=== PATIENT | female | born 1945 | race Caucasian/White ===

== ENCOUNTER 2018-01-14 14:52 | Outpatient (CLI) | payer MEDICARE, BC, SELFPAY ==
[2018-01-14 16:05] LABS: D-Dimer 1080 ng/mlFEU (<500)
[2018-01-14 17:28] LABS: ALT 19 U/L (12-78); AST 21 U/L (15-37); Albumin 3.8 g/dL (3.4-5.0); Alkaline Phosphatase 101 U/L (46-116); Anion Gap 9.1 mmol/L (3-11); BUN 16 mg/dL (7-18); Bilirubin, Total 0.7 mg/dL (0.2-1.0); CO2 26.9 mmol/L (21.0-32.0); CREATININE 0.99 mg/dL (0.55-1.02); Calcium 8.5 mg/dL (8.5-10.1); Chloride 109 mmol/L (98-107); Estimated GFR 55.14 (mL/min/1.73m2); Glucose 92 mg/dL (70-100); Potassium 3.8 mmol/L (3.5-5.1); Sodium 145 mmol/L (136-145); Total Protein 7.2 g/dL (6.4-8.2)
[2018-01-14 17:32] LABS: Vitamin B12 > 2000 pg/mL (193-986)
[2018-01-17 16:32] LABS: Creatine Kinase 99 U/L (26 - 192)
== END 2018-01-14 15:12 ==
PROVIDERS: PCP Nurse Practitioner Family; Visit Provider Nurse Practitioner Family
DX: I25.10 Atherosclerotic heart disease of native coronary artery without angina pectoris (principal); R07.9 Chest pain, unspecified; M81.0 Age-related osteoporosis without current pathological fracture; I50.9 Heart failure, unspecified; R53.83 Other fatigue; R05 Cough; D51.9 Vitamin B12 deficiency anemia, unspecified; E03.9 Hypothyroidism, unspecified
CPT/HCPCS: 36415; 80053; 82550; 82552; 82607; 85379

== ENCOUNTER 2018-01-14 17:08 | Emergency (ER) | payer MEDICARE, BC, SELFPAY ==
[2018-01-14] VITALS (15 sets, daily range): BP systolic 118–138; BP diastolic 53–80; PULSE 68–88; RESP 12–26; TEMP 36.6–36.8; O2SAT 92–99
--- NOTE | 2018-01-14 17:26 | DI.CT_ITS ---
SYMPTOM/DIAGNOSIS: SOB, ELEVATED D DIMER PE CHEST CT: CT angiography was performed with multi slice acquisition and multi planar and 3D reconstruction. CT scan of the chest was performed according to the pulmonary embolus protocol. Comparison is made with 06/06/14. There is atherosclerosis of the thoracic aorta but no aneurysmal dilatation or dissection. Heart size is mildly enlarged. There is no significant pericardial effusion. No findings to suggest right ventricular dysfunction are present. No significant thoracic adenopathy is seen. No pleural effusion or pneumothorax is present. There is no evidence of a pulmonary embolus. There are infiltrates seen in the right middle lobe and left lingula. The lungs are otherwise clear. No noncalcified pulmonary nodules are present. The tracheobronchial tree is unremarkable. There are vascular collateral/varices in the left upper quadrant of the abdomen. Degenerative changes are seen in the spine. IMPRESSION: 1. No evidence of a pulmonary embolus or thoracic aortic dissection or aneurysm. 2. Right middle lobe and lingular infiltrate. This may represent atelectasis, scarring or pneumonia. Please correlate clinically.
[2018-01-14 18:08] LABS: Abs Immature Grans 0.01 k/cumm (0.0-0.09); Absolute Basophil Count 0.03 k/cumm (0.0-0.2); Absolute Eosinophil Count 0.31 k/cumm (0.0-0.7); Absolute Lymphocyte Count 2.58 k/cumm (1.2-3.4); Absolute Monocyte Count 0.66 k/cumm (0.11-0.7); Absolute Neutrophil Count 3.35 k/cumm (1.2-6.7); Basophils % 0.4; Eosinophils % 4.5; HCT 36.9 % (36.0-46.0); HGB 11.8 g/dL (12.0-15.5); Immature Grans % 0.1; Lymphocytes % 37.2; Mean Corpuscular Hemoglobin 29.1 pg (27.0-33.0); Mean Corpuscular Volume 91.1 fL (80-95); Mean Platelet Volume 9.2 fL (8.0-11.0); Monocytes % 9.5; Neutrophils % 48.3; Platelet Count 260 x1000/uL (130-400); RBC 4.05 m/cumm (4.00-5.20); RBC Distribution Width 14.6 % (11.7-14.6); White Blood Cell Count 6.94 k/cumm (4.4-10.8)
[2018-01-14 18:17] LABS: PTT Activated 25.6 sec (21.0-31.4); Prothrombin Time 10.1 sec (9.3-10.8)
[2018-01-14] MEDS: Omnipaque 350 MG/ML 100 ML BTL IJ (18:18)
[2018-01-14 18:19] LABS: Troponin I < 0.02 ng/mL (0.00-0.06)
--- NOTE | 2018-01-14 18:33 | DI.VRAD_ITS ---
EXAM: CT Angiography Chest With Intravenous Contrast CLINICAL HISTORY: 72 years old, female; Signs and symptoms and abnormal findings; Abnormal diagnostic tests; Elevated d-dimer; Shortness of breath TECHNIQUE: Axial computed tomographic angiography images of the chest with intravenous contrast using pulmonary embolism protocol. MIP reconstructed images were created and reviewed. Coronal and sagittal reformatted images were created and reviewed. COMPARISON: CT - CHEST FOR PULMONARY EMBOLUS 09/03/2015 10:12 AM FINDINGS: Pulmonary arteries: Unremarkable. No pulmonary embolism. Aorta: Minimal atherosclerosis of the aortic arch and origin of the left subclavian artery. No thoracic aortic aneurysm. Other veins: Prominent vessels within the left upper quadrant, likely venous collaterals. Lungs: Mild dependent changes within the lung bases. Atelectasis and/or scar in the medial right middle lobe and lingula of left upper lobe. No mass. Pleural space: Unremarkable. No significant effusion. No pneumothorax. Heart: Unremarkable. No cardiomegaly. No significant pericardial effusion. No evidence of RV dysfunction. Bones/joints: No acute fracture. No dislocation. Soft tissues: Unremarkable. Lymph nodes: Unremarkable. No enlarged lymph nodes. IMPRESSION: 1. No pulmonary arterial embolism. 2. Right middle lobe and lingula atelectasis and/or scar. Dictated and Authenticated by: Mykel Saucedo MD. Ordering:NEELAM HOLDEN MD
--- NOTE | 2018-01-14 19:32 | ED.GENADUL_ITS ---
Discharge Plan Disposition Patient Disposition: HOME Condition: Good Discharge Details Chief Complaint: SOB Clinical Impression: Exertional shortness of breath, Varicose veins of both lower extremities Primary Care Provider: Prerna Buchanan ED Provider: Sha Dailey Home Meds and New Rx's Prescriptions: Continue aspirin [Aspirin Low-Strength] 81 MG tablet,chewable 81 mg PO DAILY RF: 0 levothyroxine 75 MCG tablet 75 mcg PO DAILY RF: 0 Atorvastatin Calcium 20 MG tablet 20 mg PO HS Qty: 90 RF: 3 verapamil 180 MG capsule,ext rel. pellets 24 hr 180 mg PO HS Qty: 90 RF: 3 isosorbide mononitrate 60 MG tablet extended release 24 hr 60 mg PO DAILY 90 Days Qty: 90 RF: 3 tramadol 50 MG tablet 50 mg PO HS RF: 0 furosemide 20 MG tablet 20 mg PO DAILY Qty: 30 RF: 11 calcium carbonate [Calcium 600] 600 mg calcium (1,500 mg) Tablet 600 mg PO DAILY RF: 0 cyanocobalamin (vitamin B-12) [Vitamin B-12] 1,000 mcg/mL Solution 1,000 mcg IM QMONTH RF: 0 cholecalciferol (vitamin D3) [Vitamin D3] 400 unit Capsule 400 unit PO DAILY RF: 0 Discharge Instructions Instructions: Varicose Veins (ED), Dyspnea (ED) Additional Instructions: Return immediately to the emergency department as needed for any new or worsening symptoms. Otherwise continue to take your medications as prescribed and follow-up with your primary care provider as needed for reassessment. Referrals: Prerna Buchanan [Primary Care Provider] - 1 week Discharge Data Discharge Date/Time-TO BE ENTERED AT DEPARTURE: 01/14/18 20:27 Medical Decision Making MDM Narrative Medical decision making narrative: Patient presenting to the emergency department at recommendation of her primary care provider for elevated d-dimer. Patient states that for over a month she has had some shortness of breath with exertion, intermittent leg swelling, and some pain on the anterior surface of her right lower leg. Patient does state history of some heart problems but has noticed some worsening of her symptoms over the past 4-6 week. Patient denies any chest pain at this time and is not actively short of breath but does state some right lower extremity discomfort. Right lower extremity does show varicose veins that are also present on the left lower leg but otherwise no popliteal or femoral tenderness, no respiratory distress, clear lung sounds, normal cardiac exam. Given elevated d-dimer CTA PE protocol was ordered along with CBC and coagulation studies. CMP was already performed by primary care is otherwise unremarkable nondiagnostic. Troponin was also added although I doubt ACS given duration of symptoms. EKG was reviewed with Dr. Washington. Review of labs is nondiagnostic and shows a mild anemia which is been present in the past. Negative troponin and otherwise unremarkable. CT chest shows no PE and does show some right middle lobe atelectasis or scar. Bedside ultrasound was utilized to perform vascular rapid study of patient's right lower leg which is the one with symptomatic pain and full compressibility of the deep veins from the popliteal space all the way to the femoral branch are noted with no obvious signs of thrombosis. On the right anterior aspect of her leg these veins were also compressible without signs of thrombosis. I feel the patient's lower extremity discomfort is coming from these varicose veins which show no signs of thrombosis on bedside ultrasound. No DVT is noted on scan and there is no significant abnormalities comparing right to left leg, no significant edematous changes are noted, no color changes are noted so I doubt DVT. With negative PE study I feel that her chest pain can be due to her chronic heart condition due to patient stating that it mainly happens with exertion resolved resolves with rest. Plan to have patient follow up with her primary care provider in 1 week for reassessment or to return immediately for new or worsening symptoms. After discussion of diagnosis and plan of care patient she states no further needs, questions, or concerns at this time Medical Records Medical records reviewed: Yes I reviewed the patient's medical records. Lab Data Lab results reviewed: Yes I reviewed the patient's lab results. Lab Results 01/14/18 01/14/18 01/14/18 Range/Units 17:53 17:53 17:53 WBC 6.94 (4.4-10.8) k/cumm RBC 4.05 (4.00-5.20) m/cumm Hgb 11.8 L (12.0-15.5) g/dL Hct 36.9 (36.0-46.0) % MCV 91.1 (80-95) fL MCH 29.1 (27.0-33.0) pg MCHC 32.0 (32.0-36.0) g/dL RDW 14.6 (11.7-14.6) % Plt Count 260 (130-400) x1000/uL MPV 9.2 (8.0-11.0) fL Immature Gran % 0.1 Neutrophils % 48.3 Lymphocytes % 37.2 Monocytes % 9.5 Eosinophils % 4.5 Basophils % 0.4 Absolute Neutrophils 3.35 (1.2-6.7) k/cumm Absolute Lymphocytes 2.58 (1.2-3.4) k/cumm Absolute Monocytes 0.66 (0.11-0.7) k/cumm Absolute Eosinophils 0.31 (0.0-0.7) k/cumm Absolute Basophils 0.03 (0.0-0.2) k/cumm PT 10.1 (9.3-10.8) sec INR 1.0 (1.0-3.5) APTT 25.6 (21.0-31.4) sec Magnesium 2.0 (1.8-2.4) mg/dL Troponin I < 0.02 (0.00-0.06) ng/mL ECG Data Prior ECG tracings: not available for review Interpretation: EKG shows sinus rhythm with a rate of 74, normal axis, regular NH intervals, no diagnostic ST changes noted. HPI - General Adult General Mode of arrival: ambulatory . Date/Time Provider Initiated Documentation: 01/14/18 17:19 . Limitations to Documentation: no limitations . Information obtained by: patient and RN notes reviewed . HPI Narrative: Patient chief complaint of elevated blood test. Patient states she was sent to the emergency department by her primary care office due to elevated d-dimer. Patient states over the last month or more she has had intermittent dyspnea on exertion, chest pain, and some anterior right redmond pain. Patient states that she is pain-free and asymptomatic at this time. Patient states that movement and activity seem to worsen her shortness of breath but rest typically resolves her symptoms. Patient has not taken any medication or treatments prior to coming to the emergency department. Related Data Home Medications Medication Instructions Recorded Confirmed aspirin [Aspirin Low-Strength] 81 mg PO DAILY tab-cap 08/11/12 01/14/18 levothyroxine 75 mcg PO DAILY tab-cap 01/31/14 01/14/18 isosorbide mononitrate 60 mg PO DAILY 90 Days #90 tab-cap 01/06/17 01/14/18 verapamil 180 mg PO HS #90 tab-cap 01/06/17 01/14/18 tramadol 50 mg PO HS tab-cap 07/29/17 01/14/18 calcium carbonate [Calcium 600] 600 mg PO DAILY 01/14/18 01/14/18 cholecalciferol (vitamin D3) 400 unit PO DAILY 01/14/18 01/14/18 [Vitamin D3] cyanocobalamin (vitamin B-12) 1,000 mcg IM QMONTH 01/14/18 01/14/18 [Vitamin B-12] Previous Rx's Medication Instructions Recorded furosemide 20 mg PO DAILY #30 tab-cap 09/29/17 Allergies Allergy/AdvReac Type Severity Reaction Status Date / Time alendronate sodium AdvReac Mild Nausea Unverified 01/14/18 17:33 [From Fosamax] General Stated Complaint: SOB OZZY: 2 Review of Systems Constitutional Denies body ache(s), Denies chills and Denies fever(s) Cardiovascular Reports as per HPI, Reports chest pain, Reports chest pain with activity, Denies diaphoresis, Denies syncope, Denies pedal edema, Denies edema, Denies irregular heart rhythm, Denies claudication, Denies leg edema, Reports dyspnea and Reports dyspnea on exertion Respiratory Reports as per HPI, Denies cough, Denies hemoptysis, Denies pain on inspiration , Reports dyspnea and Reports dyspnea on exertion Gastrointestinal Denies abdominal pain, Denies nausea and Denies vomiting Integumentary/Breasts Denies rash Neurologic Denies confusion, Denies syncope and Denies sensory deficit Psychiatric Denies confusion [facility] Medical History Benign positional vertigo Hypothyroid Osteopenia Vestibular migraine Social History Smoking/Tobacco Use Status: Never Surgical History Ligation of fallopian tube Tonsillectomy and adenoidectomy Exam Const General: cooperative, no acute distress and not ill appearing Orientation: alert, awake and oriented x3 HENMT Mouth: moist mucous membranes Resp Effort & Inspection: normal respiratory effort, able to speak in complete sentences, no cough, respiratory effort not decreased, not labored, no pursed lip breathing and no respiratory distress Auscultation: clear to auscultation bilaterally Cardio Rate: regular rate Rhythm: regular rhythm Heart Sounds: S1 normal, S2 normal, normal S1 and S2, no click, no gallops, no murmurs and no rubs Pulses: radial pulses present bilaterally 2+ Skin General skin exam: no rashes or lesions noted Neuro General: alert, awake, oriented x3, moves all extremities and no focal motor deficits Sensory Exam: no sensory deficits noted Extrem Right lower extremity: full ROM, normal capillary refill, no joint enlargement, knee Details: normal to inspection, lower leg Details: tenderness Location: other (Anterior tibia) and no edema and ankle Details: normal to inspection; no edema Left lower extremity: normal to inspection Course Vital Signs Temperature 36.6 C 01/14/18 17:16 Pulse 73 01/14/18 17:16 Respiratory Rate 18 01/14/18 17:16 Blood Pressure 125/68 01/14/18 17:16 Pulse Oximetry 94 L 01/14/18 17:16 Temperature 36.6 C 01/14/18 17:16 Pulse 74 01/14/18 18:17 Respiratory Rate 20 01/14/18 18:20 Blood Pressure 119/53 L 01/14/18 18:17 Pulse Oximetry 92 L 01/14/18 18:20 Lab/Test Results Lab/Test Results: Laboratory Tests 01/14/18 01/14/18 01/14/18 17:53 17:53 17:53 WBC 6.94 RBC 4.05 Hgb 11.8 L Hct 36.9 MCV 91.1 MCH 29.1 MCHC 32.0 RDW 14.6 Plt Count 260 MPV 9.2 Immature Gran % 0.1 Neutrophils % 48.3 Lymphocytes % 37.2 Monocytes % 9.5 Eosinophils % 4.5 Basophils % 0.4 Absolute Neutrophils 3.35 Absolute Lymphocytes 2.58 Absolute Monocytes 0.66 Absolute Eosinophils 0.31 Absolute Basophils 0.03 PT 10.1 INR 1.0 APTT 25.6 Magnesium 2.0 Troponin I < 0.02
== END 2018-01-14 20:27 | disposition home or self-care (01) ==
LOC: ER 20:05
PROVIDERS: Emergency Provider Nurse Practitioner Family; PCP Nurse Practitioner Family
DX: R06.02 Shortness of breath (principal); I83.93 Asymptomatic varicose veins of bilateral lower extremities
CPT/HCPCS: 36415; 71275; 80053; 93005; 99285; 82550; 82552; 82607; 83735; 84484; 85025; 85379; 85610; 85730; 93010; 99284; J3490

== ENCOUNTER 2018-01-20 07:46 | Outpatient (CLI) | payer MEDICARE, BC, SELFPAY ==
[2018-01-20 09:01] LABS: Iron 66 ug/dL (50-175); Total Iron Binding Capacity 383 ug/dL (250-450); Transferrin Sat 17 % (15-50)
[2018-01-20 09:15] LABS: Cholesterol 142 mg/dL (50-200); Ferritin 12 ng/mL (8-388); HDL Cholesterol 68 mg/dL (40-60); LDL CHOLESTEROL 65 mg/dL (<100); Triglyceride 67 mg/dL (30-150)
== END 2018-01-20 08:06 ==
PROVIDERS: PCP Nurse Practitioner Family; Visit Provider Student in an Organized Health Care Education/Training Program
DX: I25.10 Atherosclerotic heart disease of native coronary artery without angina pectoris (principal); I50.9 Heart failure, unspecified
CPT/HCPCS: 36415; 80061; 83721; 82728; 83540; 83550; 84443; 84466

== ENCOUNTER 2018-02-08 02:07 | Outpatient (CLI) | payer MEDICARE, BC, SELFPAY ==
--- NOTE | 2018-02-08 | PFT_ITS ---
PULMONARY FUNCTION TEST REPORT Please see scanned documents for further information Patient identification - Anika Tong DATE OF - 1945 DATE OF SERVICE - February 08, 2018 REQUESTING PROVIDER - Prerna Buchanan NP INTERPRETATION OF STUDY Spirometry shows no evidence of obstructive airways disease. No bronchodilator response. LUNG VOLUMES - Lung volumes show borderline mild restriction. DIFFUSION CAPACITY- Mildly reduced, which is normal when corrected to alveolar volume. AIRWAY RESISTANCE - Normal. IMPRESSION Borderline mild restrictive lung disease associated with mild diffusion defect. Clinical correlation recommended. When this study was compared to previous one from 10/15/2015, the patient has a total of 150 cc decline in FVC and a 100 cc decline in FEV1. Elinor Kelley M.D. BRANT/amina T - 02/09/2018 SEE SCANNED DOCUMENT IN THE EMR FOR DATA AND GRAPHS
[2018-02-08] MEDS: Inhaler, Assist Device 1 EACH MC (08:36)
[2018-02-08] MEDS: Albuterol HFA 18 GM 200 PUFF INH IH (08:37)
== END 2018-02-08 02:27 ==
PROVIDERS: PCP Nurse Practitioner Family; Visit Provider Nurse Practitioner Family
DX: R07.9 Chest pain, unspecified (principal); R06.09 Other forms of dyspnea; J98.4 Other disorders of lung
CPT/HCPCS: 94060; 94150; 94726; 94729

== ENCOUNTER 2018-02-17 00:24 | Outpatient (CLI) | payer MEDICARE, BC, SELFPAY ==
--- NOTE | 2018-02-17 08:30 | MERGEMPI_ITS ---
*[facility]* [address] [place] [address] Myocardial Perfusion Imaging - SPECT Johan protocol Date of study: 02/17/2018 *PATIENT PRESENTATION* Height: 157.5cm (62in) Blood Pressure: Weight: 78.6kg (173lb) BSA: 1.89m^2 Referring physician: Naveen Williamson Ordering physician: Prerna Buchanan Aprn Impressions: Normal study after maximal exercise. Summary: 1. Myocardial perfusion imaging: No myocardial perfusion defects noted. 2. The calculated left ventricular ejection fraction after stress: 68%. LV global systolic function is normal. No left ventricular regional motion abnormality. 3. Stress: The target heart rate was achieved. Indication: R06.09. History: Patient's presenting symptoms: asymptomatic. REASON FOR VISIT: PATIENT PRESENTED TO THE EMERGENCY ROOM 01/14/18 ON RECOMMENDATION BY PCP DUE TO ELEVATED D-DIMER, AND REPORT OF OVER A MONTH OF INTERMITTENT EXERTIONAL DYSPNEA, CHEST PAIN, INTERMITTENT LEG SWELLING, AND RIGHT ANTERIOR LEG PAIN. DENIES CHEST PAIN AT TIME OF ER PRESENTATION, TROPONIN NEGATIVE, AND PULMONARY EMBOLISM RULED OUT BY CT SCAN. TODAY, PATIENT REPORTS 6 MONTHS OF EXERTIONAL DYSPNEA AND 6/10 LEFT STERNAL CHEST PRESSURE/HEAVINESS OCCURING MOSTLY DURING CLIMBING STAIRS. SYMPTOMS LAST FOR ABOUT 5-10 MINUTES AND RESOLVES WITH REST. LAST EPISODE OF CHEST PRESSURE OCCURED TWO DAYS AGO. 09/20/15 STRESS TEST: NEGATIVE REGULAR STRESS TEST. 11/14/15 ECHOCARDIOGRAM: EJECTION FRACTION 60-65%, MILD MITRAL REGURGITATION. 02/09/16 PULMONARY FUNCTION TEST: MILD RESTRICTIVE LUNG DISEASE ASSOCIATED WITH MILD DIFFUSION DEFECT. PAST MEDICAL HISTORY: HYPERTENSION, HEART FAILURE, PEPTIC ULCER DISEASE, HYPOTHYROIDISM, VESTIBULAR MIGRAINES, OSTEOPENIA, CORONARY ARTERY DISEASE, CHRONIC STABLE ANGINA. FAMILY HISTORY: MOTHER - CORONARY ARTERY DISEASE, MYOCARDIAL INFARCTION. SMOKING STATUS: NEVER SMOKER. EXERCISE ROUTINE: NONE. Risk factors: Family history of coronary artery disease. Hypertension. Cholesterol: 142mg/dl. HDL: 68mg/dl. LDL: 65mg/dl. Triglycerides: 67mg/dl. ALLERGIES: ALENDRONATE SODIUM. MEDICATIONS: ASPIRIN 81MG, DAILY. ATORVASTATIN CALCIUM 20MG, BEDTIME. CALCIUM CARBONATE 600MG, DAILY. CHOLECALCIFEROL 400UNITS, DAILY. CYANOCOBALAMIN 1,000MCG IM, QMONTH. FUROSEMIDE 20MG, DAILY. ISOSORBIDE MONONITRATE 60MG, DAILY. LEVOTHYROXINE 75MCG, DAILY. VERAPAMIL 180MG, DAILY. Imaging Technique: Protocol: Johan protocol. Acquisition: Gated SPECT; 1 day - rest/stress. The patient was imaged in the supine position. Attenuation correction used. Isotope administration: - Rest. Tc[99m]-sestamibi. Dose: 9.5mCi. Injection time: 09:00 AM. Injection to stress time: 00:45. - Stress. Tc[99m]-sestamibi. Dose: 30.2mCi. Injection time: 10:30 AM. 1-2 min before end of exercise Baseline ECG: SINUS RHYTHM. HEART RATE 60 BPM. Stress protocol: + +---+ +---+ + !Stage !HR !BP (mmHg) !Sat!Symptoms ! + +---+ +---+ + !Baseline supine !60 !142/72 (95) !---! ! + +---+ +---+ + !Baseline standing !63 !126/70 (89) !95%! ! + +---+ +---+ + !Stage I; 1.7mph, !99 !142/70 (94) !---! ! !10degrees; 3 min ! ! ! ! ! + +---+ +---+ + !Stage II; 2.5mph, !114!174/80 (111)!---!4 out of 10 chest ! !12degrees; 3 min ! ! ! !discomfort, moderate ! ! ! ! ! !dyspnea ! + +---+ +---+ + !Peak stress !140! !---! ! + +---+ +---+ + !Recovery; 1 min !124!190/80 (117)!---! ! + +---+ +---+ + !Recovery; 3 min !93 !180/72 (108)!---! ! + +---+ +---+ + !Recovery; 6 min !85 !142/60 (87) !---!3 out of 10 chest ! ! ! ! ! !discomfort, mild dyspnea! + +---+ +---+ + !Recovery; 9 min !82 !126/60 (82) !---!Resolved ! + +---+ +---+ + * Stress results: Maximal heart rate during stress was 140bpm (95% of maximal predicted heart rate). The maximal predicted heart rate was 148bpm. The target heart rate was achieved. The rate-pressure product for the peak heart rate and blood pressure was 71226oh Hg/min. Stress ECG: TREADMILL EXERCISE STRESS TEST ENDED IN 8MIN 10SEC DUE TO EXERTIONAL DYSPNEA. APPROPRIATE HEART RATE AND BLOOD PRESSURE RESPONSE TO EXERCISE. MAX HEART RATE 140 BPM, 94% OF TARGET. APPROXIMATE METS ACHIEVED 10.16. 4/10 CHEST HEAVINESS REPORTED DURING STAGE 2 OF JOHAN PROTOCOL. CHEST HEAVINESS WITH ASSOCIATED DYSPNEA PERSISTED INTO RECOVERY, DECREASING TO A 3/10 BY MINUTE 6, AND RESOLVING BY 9 MINUTES RECOVERY. NO ECTOPY NOTED. NO SIGNIFICANT ST SEGMENT CHANGES NOTED. ABOVE AVERAGE FUNCTIONAL CAPACITY. Myocardial perfusion: Imaging information: gated. Left ventricular size is normal. No myocardial perfusion defects noted. Ventricular Function (Wall Motion): The calculated left ventricular ejection fraction after stress: 68%. LV global systolic function is normal. No left ventricular regional motion abnormality. Study data: Naveen Williamson MD supervised and was readily available during the procedure. This study was interpreted by [facility]. Study status: Routine. Consent: The risks, benefits, and alternatives to the procedure were explained to the patient and informed consent was obtained. Procedure: Initial setup. A baseline ECG was recorded. Surface ECG leads and manual cuff blood pressure measurements were monitored. Heart sounds: Normal. Lung sounds: Normal. Treadmill exercise testing was performed using the Johan protocol. Study completion: All catheters inserted during the procedure were removed. The patient tolerated the procedure well and was discharged from the lab. Discharge: The patient left the laboratory in stable condition. Birthdate: Patient birthdate: 1945. Sex: Gender: female. Study date: Study date: 02/17/2018. Study time: 12:30 PM. Signature Documentation: - The imaging portion of this study was interpreted by Nuclear Television Picture Tube Rebuilder Naveen Williamson MD. - The imaging portion of this study was interpreted by Nuclear Radiologist Rajesh Oconnor MD. - The Stress ECG portion of this study was interpreted by Naveen Williamson MD. Electronically signed by Naveen Williamson 02/17/2018 13:03
== END 2018-02-17 00:44 ==
PROVIDERS: PCP Nurse Practitioner Family; Visit Provider Nurse Practitioner Family
DX: I51.0 Cardiac septal defect, acquired (principal); R06.09 Other forms of dyspnea; E07.9 Disorder of thyroid, unspecified; I10 Essential (primary) hypertension; I50.9 Heart failure, unspecified; E03.9 Hypothyroidism, unspecified
CPT/HCPCS: 78452; 93016; 93018; 93017

== ENCOUNTER 2018-04-21 14:57 | Outpatient (CLI) | payer MEDICARE, BC, SELFPAY ==
--- NOTE | 2018-04-21 15:09 | DI.RAD_ITS ---
SYMPTOMS/DIAGNOSIS: LEFT WRIST PAIN, M25.532 LEFT WRIST: There is no evidence of a fracture or dislocation. The bony structures are normally mineralized. There are mild degenerative changes involving the 1st multangular metacarpal, inter-multangular and metacarpal multangular joint of the 2nd metacarpal. SUMMARY: Mild degenerative changes, nil else.
== END 2018-04-21 15:17 ==
PROVIDERS: PCP Nurse Practitioner Family; Visit Provider Nurse Practitioner
DX: M25.532 Pain in left wrist (principal); M19.032 Primary osteoarthritis, left wrist
CPT/HCPCS: 73110

== ENCOUNTER → 2018-07-04 08:51 | Outpatient (BNVA) | payer MEDICARE, BC, SELFPAY | PROVIDERS: PCP Nurse Practitioner Family; Referring Provider Nurse Practitioner Family; Visit Provider Student in an Organized Health Care Education/Training Program | DX: M25.532 Pain in left wrist (principal) | CPT/HCPCS: 99201; 99213; L3908 ==

== ENCOUNTER → 2018-08-03 09:44 | Outpatient (BNVA) | payer MEDICARE, BC, SELFPAY | PROVIDERS: PCP Nurse Practitioner Family; Visit Provider Student in an Organized Health Care Education/Training Program | DX: I25.10 Atherosclerotic heart disease of native coronary artery without angina pectoris (principal); I50.30 Unspecified diastolic (congestive) heart failure; I11.0 Hypertensive heart disease with heart failure | CPT/HCPCS: 99214 ==

== ENCOUNTER 2018-08-08 09:19 | Outpatient (CLI) | payer MEDICARE, BC, SELFPAY ==
--- NOTE | 2018-08-08 09:09 | DI.RAD_ITS ---
SYMPTOMS/DIAGNOSIS: F/U LEFT WRIST: Single carpal tunnel view was obtained. Comparison x-ray of the left wrist is 04/21/18. There is narrowing and mild sclerosis of the articular surfaces between the triquetrum and pisiform. The bones appear normally mineralized and otherwise unremarkable on this limited examination. The soft tissues are unremarkable.
== END 2018-08-08 09:39 ==
PROVIDERS: PCP Nurse Practitioner Family; Referring Provider Nurse Practitioner Family; Visit Provider Student in an Organized Health Care Education/Training Program
DX: M25.532 Pain in left wrist (principal); M19.032 Primary osteoarthritis, left wrist
CPT/HCPCS: 99212; 99213; 73100

== ENCOUNTER 2018-08-09 00:56 | Outpatient (CLI) | payer MEDICARE, BC, SELFPAY ==
--- NOTE | 2018-08-09 10:10 | DI.RAD_ITS ---
SYMPTOMS/DIAGNOSIS: COUGH, R05 CHEST: Frontal and lateral views. Comparison 08/23/15. The heart size appears at the upper limits of normal to mildly enlarged. The pulmonary vasculature is within normal limits. There is plate atelectatic changes in the lungs. No focal consolidating infiltrates are seen to suggest pneumonia. No effusions or pneumothoraces are identified. Age related degenerative changes are seen in the spine. IMPRESSION: No acute pulmonary process.
== END 2018-08-09 01:16 ==
PROVIDERS: PCP Nurse Practitioner Family; Visit Provider Nurse Practitioner
DX: R05 Cough (principal); I51.7 Cardiomegaly
CPT/HCPCS: 71046

== ENCOUNTER 2018-08-12 12:37 | Outpatient (CLI) | payer MEDICARE, BC, SELFPAY ==
[2018-08-12 14:17] LABS: Vitamin B12 453 pg/mL (193-986)
== END 2018-08-12 12:57 ==
PROVIDERS: PCP Nurse Practitioner Family; Visit Provider Nurse Practitioner Family
DX: R53.83 Other fatigue (principal); D51.9 Vitamin B12 deficiency anemia, unspecified
CPT/HCPCS: 36415; 82607

== ENCOUNTER 2018-08-26 02:14 | Outpatient (CLI) | payer MEDICARE, BC, SELFPAY ==
--- NOTE | 2018-08-26 15:03 | DI.MAMMO_ITS ---
SYMPTOMS/DIAGNOSIS: SCREENING, Z12.31, [facility], Z00.00 BILATERAL SCREENING MAMMOGRAMS: Mammograms were interpreted according to the usual protocol including computer analysis with CAD system, tomosynthesis and C view imaging. Comparison is made with exams from 2013 through 2018. The breasts are composed of heterogeneously dense fibroglandular tissue, breast density category C. No suspicious masses or suspicious microcalcifications are seen. There has been no significant change. IMPRESSION: Category 1, negative mammogram. Yearly screening mammography is recommended. [facility] ASSESSMENT OF FINDINGS: Negative. Category 1. Patient will receive a letter notifying them of these results. Bi-RADS category C. The breasts are heterogeneously dense, which may obscure small masses.
== END 2018-08-26 02:34 ==
PROVIDERS: PCP Nurse Practitioner Family; Visit Provider Nurse Practitioner Family
DX: Z12.31 Encounter for screening mammogram for malignant neoplasm of breast (principal)
CPT/HCPCS: 77063; 77067

== ENCOUNTER → 2018-09-16 08:51 | Outpatient (BNVA) | payer MEDICARE, BC, SELFPAY | PROVIDERS: PCP Nurse Practitioner Family; Referring Provider Nurse Practitioner Family; Visit Provider Student in an Organized Health Care Education/Training Program | DX: M19.032 Primary osteoarthritis, left wrist (principal) | CPT/HCPCS: 20605; 99213; J1030 ==

== ENCOUNTER → 2018-10-26 14:22 | Outpatient (BNVA) | payer MEDICARE, BC, SELFPAY | PROVIDERS: PCP Nurse Practitioner Family; Visit Provider Student in an Organized Health Care Education/Training Program | DX: I25.10 Atherosclerotic heart disease of native coronary artery without angina pectoris (principal); I50.9 Heart failure, unspecified; I11.0 Hypertensive heart disease with heart failure | CPT/HCPCS: 99215 ==

== ENCOUNTER 2018-10-26 14:59 | Outpatient (CLI) | payer MEDICARE, BC, SELFPAY ==
[2018-10-26 15:51] LABS: Abs Immature Grans 0.01 k/cumm (0.0-0.09); Absolute Basophil Count 0.01 k/cumm (0.0-0.2); Absolute Eosinophil Count 0.26 k/cumm (0.0-0.7); Absolute Lymphocyte Count 1.98 k/cumm (1.2-3.4); Absolute Monocyte Count 0.75 k/cumm (0.11-0.7); Basophils % 0.2; Eosinophils % 4.1; HCT 37.3 % (36.0-46.0); HGB 11.8 g/dL (12.0-15.5); Immature Grans % 0.2; Lymphocytes % 30.9; Mean Corp. HGB Concentration 31.6 g/dL (32.0-36.0); Mean Corpuscular Hemoglobin 28.9 pg (27.0-33.0); Mean Corpuscular Volume 91.4 fL (80-95); Mean Platelet Volume 9.2 fL (8.0-11.0); Monocytes % 11.7; Neutrophils % 52.9; Platelet Count 295 x1000/uL (130-400); RBC 4.08 m/cumm (4.00-5.20); RBC Distribution Width 15.4 % (11.7-14.6); White Blood Cell Count 6.41 k/cumm (4.4-10.8)
[2018-10-26 20:07] LABS: ALT 22 U/L (12-78); AST 20 U/L (15-37); Albumin 3.6 g/dL (3.4-5.0); Alkaline Phosphatase 109 U/L (46-116); Anion Gap 10.5 mmol/L (3-11); BUN 13 mg/dL (7-18); Bilirubin, Direct 0.17 mg/dL (0.00-0.20); Bilirubin, Total 0.6 mg/dL (0.2-1.0); CO2 26.5 mmol/L (21.0-32.0); CREATININE 0.79 mg/dL (0.55-1.02); Chloride 108 mmol/L (98-107); Glucose 93 mg/dL (70-100); Magnesium 1.9 mg/dL (1.8-2.4); NT-proBNP 17 pg/mL; Sodium 145 mmol/L (136-145); TSH (W/Ref FT4) 0.93 uIU/mL (0.358-3.74)
== END 2018-10-26 15:19 ==
PROVIDERS: PCP Nurse Practitioner Family; Visit Provider Student in an Organized Health Care Education/Training Program
DX: I25.10 Atherosclerotic heart disease of native coronary artery without angina pectoris (principal); I50.30 Unspecified diastolic (congestive) heart failure; I10 Essential (primary) hypertension; E03.9 Hypothyroidism, unspecified; I11.0 Hypertensive heart disease with heart failure
CPT/HCPCS: 36415; 80048; 80076; 99215; 83735; 83880; 84443; 85025

== ENCOUNTER → 2018-11-30 13:16 | Outpatient (BNVA) | payer MEDICARE, BC, SELFPAY | PROVIDERS: PCP Nurse Practitioner Family; Visit Provider Student in an Organized Health Care Education/Training Program | DX: I25.10 Atherosclerotic heart disease of native coronary artery without angina pectoris (principal); I50.20 Unspecified systolic (congestive) heart failure; I11.0 Hypertensive heart disease with heart failure; R60.9 Edema, unspecified | CPT/HCPCS: 99214 ==

== ENCOUNTER → 2019-01-13 08:59 | Outpatient (BNVA) | payer MEDICARE, BC, SELFPAY | PROVIDERS: PCP Nurse Practitioner Family; Referring Provider Nurse Practitioner Family; Visit Provider Student in an Organized Health Care Education/Training Program | DX: M19.032 Primary osteoarthritis, left wrist (principal) | CPT/HCPCS: 99213 ==

== ENCOUNTER 2019-01-30 11:34 | Outpatient (REF) | payer MEDICARE, BC, SELFPAY ==
[2019-01-30 21:08] LABS: Absolute Basophil Count 0.04 k/cumm (0.0-0.2); Absolute Eosinophil Count 0.38 k/cumm (0.0-0.7); Absolute Lymphocyte Count 1.97 k/cumm (1.2-3.4); Absolute Neutrophil Count 2.52 k/cumm (1.2-6.7); Basophils % 0.7; HCT 37.7 % (36.0-46.0); HGB 11.9 g/dL (12.0-15.5); Lymphocytes % 36.4; Mean Corp. HGB Concentration 31.6 g/dL (32.0-36.0); Mean Corpuscular Hemoglobin 28.8 pg (27.0-33.0); Mean Corpuscular Volume 91.3 fL (80-95); Mean Platelet Volume 9.6 fL (8.0-11.0); Monocytes % 9.2; Neutrophils % 46.7; Platelet Count 331 x1000/uL (130-400); RBC 4.13 m/cumm (4.00-5.20); RBC Distribution Width 15.6 % (11.7-14.6); White Blood Cell Count 5.41 k/cumm (4.4-10.8)
[2019-01-30 21:20] LABS: Iron 46 ug/dL (50-175); Total Iron Binding Capacity 395 ug/dL (250-450); Transferrin Sat 12 % (15-50)
[2019-01-30 21:53] LABS: Anion Gap 8.8 mmol/L (3-11); BUN 11 mg/dL (7-18); CO2 27.2 mmol/L (21.0-32.0); Calcium 8.8 mg/dL (8.5-10.1); Chloride 109 mmol/L (98-107); Glucose 121 mg/dL (70-100); Potassium 3.6 mmol/L (3.5-5.1); Sodium 145 mmol/L (136-145); Vitamin B12 245 pg/mL (193-986)
[2019-01-31 12:20] LABS: Hemoglobin A1C 6.1 % (4.5-6.2)
== END 2019-01-30 11:54 ==
LOC: NCHCN 11:34
PROVIDERS: PCP Nurse Practitioner Family; Visit Provider Nurse Practitioner Family
DX: D50.8 Other iron deficiency anemias (principal); F41.9 Anxiety disorder, unspecified; R41.3 Other amnesia; R73.9 Hyperglycemia, unspecified; R05 Cough; J98.4 Other disorders of lung; I25.10 Atherosclerotic heart disease of native coronary artery without angina pectoris; R29.6 Repeated falls
CPT/HCPCS: 80048; 82607; 83036; 83540; 83550; 85025

== ENCOUNTER 2019-02-02 08:44 | Outpatient (CLI) | payer MEDICARE, BC, SELFPAY ==
--- NOTE | 2019-02-04 08:39 | HPE_ITS ---
Date of service: 02/02/19 Assessment and Plan Assessment and plan (1) Arthritis of left wrist: Status: Chronic Assessment and plan: Left wrist pisiform excision. Details of surgery were discussed with patient as well as risks and pertinent anatomy. All questions were answered. Because of her exertional chest pain and shortness of breath, anesthesia was involved in her evaluation today, and after reading her cardiology notes, would like to discuss the case with the forest technology professor to see if she is safe to proceed with surgery. History of Present Illness History of Present Illness Chief Complaint: Left wrist pain Narrative: Anika is a 73-year-old female who comes in today for a preop history and physical for a left pisiform excision of her wrist. She has been complaining of left wrist pain for some time now, and to this point has failed conservative treatment. She has pain when she is lifting anything or using her wrist forcefully. X-rays taken in the office confirm OA of her left wrist involving her pisiform. She has had an injection in the left wrist as well and this helped quite a bit but only for about [address] At this point Dr. Sewell offers a left pisiform excision of the wrist and Anika is anxious to proceed. Pertinent Surgical Information Anika had a cardiac catheterization which showed a 40% blockage about 4 years ago. This was treated medically. According to cardiology notes they have not addressed any chest pain or SOB on exertion. They have managed her medications regularly for edema, but again, nothing was mentioned about her chest pain or SOB. She states that she has COPD which she uses a rescue inhaler and needs it when she climbs a flight of stairs most times. This is concerning for a cardiovascular issue rather than COPD especially when combined with chest pain. Anesthesia will be talking to her forest technology professor prior to surgery. Patient denies history of CVA, OH, angina, asthma, renal or liver disorders, hepatitis, bleeding disorders, diabetes, immune or thyroid disorders. No complications from anesthesia. Review of Systems Constitutional Constitutional: Denies fever(s) ENT Ears, Nose, Mouth, and Throat: Denies dizziness and Denies sore throat Cardiovascular Cardiovascular: Reports chest pain with activity, Denies palpitations and Reports dyspnea on exertion Respiratory Respiratory: Denies cough and Reports dyspnea on exertion Gastrointestinal Gastrointestinal: Denies abdominal pain, Denies melena, Denies hematochezia, Denies diarrhea, Denies nausea and Denies vomiting Genitourinary Genitourinary: Denies hematuria and Denies dysuria Neurologic Neurologic: Denies dizziness Endocrine Endocrine: Denies palpitations [facility] Medical History (Updated 02/02/19 @ 09:06 by Susie Mejia RN) Benign positional vertigo CAD (coronary artery disease) (Chronic) Chest pain (Acute) COPD (chronic obstructive pulmonary disease) (Chronic) Hypothyroid Osteopenia Pre-diabetes (Acute) Vestibular migraine Surgical History (Updated 02/04/19 @ 08:46 by PRATIK Mesa) History of cardiac catheterization (Chronic) without stenting History of colonoscopy (Chronic) Ligation of fallopian tube Tonsillectomy and adenoidectomy Family History (Updated 02/02/19 @ 09:06 by Susie Mejia RN) Other Cancer Heart disease Social History Smoking/Tobacco Use Status: Never Alcohol Intake: never Drug use: Never Substance use type: does not use Do you feel safe at home: Yes Do you feel safe in your relationship?: Yes Meds Home Medications and Allergies Home Medications Medication Instructions Recorded Confirmed Type levothyroxine 75 mcg PO HS tab-cap 01/31/14 02/02/19 History atorvastatin 20 mg tablet 20 mg PO QPM #90 tab 04/04/18 02/02/19 Rx diclofenac sodium 1 % topical gel 2 gm TP PRN gm 10/26/18 02/02/19 History isosorbide mononitrate 60 mg 60 mg PO DAILY 90 Days #90 tab-cap 10/26/18 02/02/19 Rx tablet,extended release 24 hr torsemide 20 mg tablet 20 mg PO DAILY #90 tab 10/26/18 02/02/19 Rx verapamil 180 mg 24 hr 180 mg PO HS #90 tab-cap 10/26/18 02/02/19 Rx capsule,extended release levalbuterol tartrate 45 1 puff IH Q6H PRN 11/30/18 02/02/19 History mcg/actuation aerosol inhaler cyanocobalamin (vitamin B-12) 1,000 mcg PO DAILY 02/02/19 02/02/19 History [Vitamin B-12] ferrous sulfate [iron] 325 mg PO DAILY 02/02/19 02/02/19 History Allergies Allergy/AdvReac Type Severity Reaction Status Date / Time alendronate sodium AdvReac Mild Nausea Unverified 02/02/19 09:02 [From Fosamax] Exam HENGA Head: normocephalic and atraumatic General nose exam: no nasal discharge Throat: uvula midline and no uvular edema Other: soft palate rises symmetrically, no erythema Eyes Conjunctivae: conjunctivae normal Sclera: sclerae normal Pupils: PERRL Resp Effort & Inspection: normal respiratory effort Auscultation: clear to auscultation bilaterally and no wheezes Cardio Rate: regular rate Rhythm: regular rhythm Heart Sounds: S1 normal, S2 normal and no murmurs GI Palpation: soft, no hepatosplenomegaly and nontender Auscultation: normal bowel sounds
== END 2019-02-02 09:04 ==
PROVIDERS: PCP Nurse Practitioner Family; Visit Provider Student in an Organized Health Care Education/Training Program
DX: M19.032 Primary osteoarthritis, left wrist (principal); Z01.818 Encounter for other preprocedural examination; J44.9 Chronic obstructive pulmonary disease, unspecified
CPT/HCPCS: NC

== ENCOUNTER 2019-02-03 08:39 | Outpatient (CLI) | payer MEDICARE, BC, SELFPAY | END 2019-02-03 08:59 | PROVIDERS: PCP Nurse Practitioner Family; Visit Provider Student in an Organized Health Care Education/Training Program | DX: R07.89 Other chest pain (principal); R06.02 Shortness of breath; I25.10 Atherosclerotic heart disease of native coronary artery without angina pectoris | CPT/HCPCS: 93005; 93010 ==

== ENCOUNTER 2019-02-08 06:15 | Day surgery (SDC) | payer MEDICARE, BC, SELFPAY ==
[2019-02-08 06:28] VITALS: BP 109/64; PULSE 71; RESP 16; TEMP 36.7; O2SAT 97
[2019-02-08] MEDS: Lactated Ringers 1,000 ML 80 ML IV (06:59)
[2019-02-08] MEDS: Bupivacaine 0.5% Pres-Free 30 ML VIAL (07:55)
[2019-02-08] MEDS: ceFAZolin 2 GM/50 ML BAG 50 GM (09:06)
--- NOTE | 2019-02-08 09:50 | W.PM.DSUDISC ---
Discharge Plan Disposition Patient Disposition: HOME Condition: Good Discharge Details Reason For Visit: Left Pisotriquetral Arthritis Attending Provider: Dominic Sewell Primary Care Provider: Prerna Buchanan Home Meds and New Rx's Prescriptions: New celecoxib 200 mg capsule 200 mg PO BID PRN (Reason: pain) Qty: 40 RF: 1 acetaminophen 500 mg tablet 500 mg PO Q8H PRN (Reason: pain) Qty: 30 RF: 3 hydrocodone-acetaminophen 5-325 mg tablet 1 tab PO Q6H PRN PRN (Reason: pain) Qty: 8 RF: 0 Continued diclofenac sodium 1 % gel 2 gm TP PRN RF: 0 isosorbide mononitrate 60 mg tablet extended release 24 hr 60 mg PO DAILY 90 Days Qty: 90 RF: 3 verapamil 180 mg capsule,ext rel. pellets 24 hr 180 mg PO HS Qty: 90 RF: 3 torsemide 20 mg tablet 20 mg PO DAILY Qty: 90 RF: 3 levalbuterol tartrate [Xopenex HFA] 45 mcg/actuation HFA aerosol inhaler 1 puff IH Q6H PRNRF: 0 levothyroxine 75 MCG tablet 75 mcg PO HS RF: 0 atorvastatin 20 mg tablet 20 mg PO QPM Qty: 90 RF: 3 cyanocobalamin (vitamin B-12) [Vitamin B-12] 1,000 mcg Tablet 1,000 mcg PO DAILY RF: 0 ferrous sulfate [iron] 325 mg (65 mg iron) Tablet 325 mg PO DAILY RF: 0 Discharge Instructions Additional Instructions: Activity: You should keep the hand/wrist elevated as much as possible for the first few days. You may use the other fingers as tolerated but avoid trying to do too much too soon. You may perform light activities with the splint in place. Dressing/Cast: Your splint should stay in place at all times. Do NOT get it wet. You may loosen the MOR wrap if you feel it is too tight and then rewrap more loosely. Medications: - You should take Tylenol and Celecoxib for baseline pain control. If the Celecoxib is too costly, you may use 600mg Ibuprofen three times a day as needed. - You have been prescribed a stronger pain medication, Hydrocodone, for breakthrough pain. - You may apply ice over the wrist, just double bag so it doesn't get wet. Follow-up: 10-14 days Referrals: Dominic Sewell MD [ [facility] STAFF PHYSICIAN] - Equipment/Supplies: Splint and Sling Activity:: Elevate Remove Dressings/Wound Care:: Do Not Remove Shower/Bathe:: Cover Diet:: As Tolerated Discharge Orders Discharge Orders: Discharge Order (Routine); Ordered 02/08/19 Ordered By: Dominic Sewell DS: Diagnosis Discharge Diagnosis (1) Arthritis of left wrist: Status: Chronic
[2019-02-08 10:25] VITALS: BP 103/62; PULSE 64; RESP 16; TEMP 36.4; O2SAT 96
--- NOTE | 2019-02-09 07:29 | ROE_ITS ---
REPORT OF OPERATIVE PROCEDURE DATE OF PROCEDURE February 08, 2019 PREOPERATIVE DIAGNOSIS Left pisotriquetral arthritis. POSTOPERATIVE DIAGNOSIS Left pisotriquetral arthritis. SURGERY Left pisiform excision. SURGEON Dominic Sewell M.D. FINDINGS There was notable arthrosis of the pisiform. A trans FCU approach was used to remove the pisiform. ANESTHESIA General with ulnar nerve block. ESTIMATED BLOOD LOSS Minimal. COMPLICATIONS None. DISPOSITION The patient was awakened from sedation and taken to the Same Day Surgery area in stable condition. INDICATION FOR PROCEDURE Anika is a 73-year old who has had persistent ulnar-sided left wrist pain. She was diagnosed with pis otriquetral arthritis. She had had success with nonoperative treatments including an injection, howev er, they were all short lived. She continued to have limitations with gripping, grasping and placing any pressure on her hypothenar region. Therefore, I offered a pisiform resection. I reviewed the tech nical details of the case. I discussed the risks to include bleeding, infection, pain, stiffness, dam age to nerves and vessels, damage to muscles and tendons, weakness. Despite these risks, she elected to proceed. PROCEDURE DESCRIPTION Anika was greeted in the preoperative holding area. Her identity was confirmed and the correct side was identified and marked. She was taken back to the PACU for administration of an ulnar nerve bloc k. After successful administration of the peripheral nerve block, she was taken to the Operating Room . The left hand was placed on a hand table. It was prepped with ChloraPrep and draped in a standard fa shion. A heavy-sedation general anesthetic was performed. Prophylactic antibiotics in the form of cef azolin were given. A timeout was performed for safe surgery. The proposed surgical incision site was drawn on the skin and the area was anesthetized with 0.25% bu pivacaine. The limb was exsanguinated and an Esmarch tourniquet was placed, where it stayed for appro ximately 15 minutes. A slightly curvilinear incision was made over the hypothenar region and extendin g down proximally over the ulnar nerve vacular bundle. The skin was incised sharply. Tissue flaps wer e raised so we had visualization of the FCU tendon, as well as its medial aspect. The ulnar nerve was identified radial to the FCU tendon. This was released from any overlying structures and to free up the ulnar nerve for mobilization. The pisiform was easily palpable. Once visualization was obtained, I then performed a trans FCU resection of the FCU. The FCU fibers were incised directly on top of the pisiform. Subperiosteally, the pisiform was removed. This was done ulnarly first, then moving proxim ally distally. Before moving radially, I made sure there was a freer place behind the pisiform betwee n the ulnar nerve and the pisiform. The periosteal dissection was continued. The pisiform was then r emoved. There was some piece of the pisiform in the most distal and radial aspects, which still were adherent to some soft tissue. This was removed gently with a rongeur. The wound was then thoroughly irrigated. The FCU fibers were reapproximated using a #0-Vicryl. There seemed to be some transection of the fibers through the approach, but there was still continuity of the FCU tendon without retracti on. The skin was then closed with a #4-0 Nylon. The wound was dressed with Xeroform, 4x4s and Webril. The tourniquet was released and there was adequate blood flow throughout the fingers without any exc essive bleeding through the wound. A dorsal splint was placed with the wrist in about 20 degrees of f lexion. At the end of the case, all counts were correct. Anika was transferred back to the Same Day Surgery in stable condition.
== END 2019-02-08 10:55 | disposition home or self-care (01) ==
PROVIDERS: PCP Nurse Practitioner Family; Visit Provider Student in an Organized Health Care Education/Training Program
PROC: (CPT 25210; principal; 2019-02-08 07:30)
DX: M19.032 Primary osteoarthritis, left wrist (principal); J44.9 Chronic obstructive pulmonary disease, unspecified; I25.10 Atherosclerotic heart disease of native coronary artery without angina pectoris
CPT/HCPCS: 25210; 76942; J0690; J1100; J2250; J2405; L3650

== ENCOUNTER → 2019-02-20 11:10 | Outpatient (BNVA) | payer MEDICARE, BC, SELFPAY | PROVIDERS: PCP Nurse Practitioner Family; Referring Provider Nurse Practitioner Family; Visit Provider Student in an Organized Health Care Education/Training Program | DX: Z47.89 Encounter for other orthopedic aftercare (principal); M19.032 Primary osteoarthritis, left wrist | CPT/HCPCS: L3908 ==

== ENCOUNTER 2019-03-20 02:05 | Outpatient (CLI) | payer MEDICARE, BC, SELFPAY | END 2019-03-20 02:25 | PROVIDERS: PCP Nurse Practitioner Family; Visit Provider Nurse Practitioner Family | DX: Z47.89 Encounter for other orthopedic aftercare (principal); M19.032 Primary osteoarthritis, left wrist; J44.9 Chronic obstructive pulmonary disease, unspecified ==

== ENCOUNTER 2019-04-07 14:40 | Outpatient (CLI) | payer MEDICARE, BC, SELFPAY ==
[2019-04-07 16:39] LABS: Anion Gap 8.5 mmol/L (3-11); BUN 17 mg/dL (7-18); CO2 30.5 mmol/L (21.0-32.0); CREATININE 0.87 mg/dL (0.55-1.02); Calcium 8.8 mg/dL (8.5-10.1); Chloride 108 mmol/L (98-107); Glucose 119 mg/dL (74-106); Potassium 3.6 mmol/L (3.5-5.1); Sodium 147 mmol/L (136-145)
== END 2019-04-07 15:00 ==
PROVIDERS: PCP Nurse Practitioner Family; Visit Provider Nurse Practitioner Family
DX: I50.9 Heart failure, unspecified (principal); R53.83 Other fatigue
CPT/HCPCS: 36415; 80048

== ENCOUNTER 2019-06-01 10:37 | Outpatient (REF) | payer MEDICARE, BC, SELFPAY ==
[2019-06-01 21:56] LABS: Abs Immature Grans 0.01 k/cumm (0.0-0.09); Absolute Basophil Count 0.03 k/cumm (0.0-0.2); Absolute Eosinophil Count 0.27 k/cumm (0.0-0.7); Absolute Lymphocyte Count 1.96 k/cumm (1.2-3.4); Absolute Monocyte Count 0.62 k/cumm (0.11-0.7); Absolute Neutrophil Count 2.61 k/cumm (1.2-6.7); Basophils % 0.5; Eosinophils % 4.9; HCT 39.9 % (36.0-46.0); HGB 12.9 g/dL (12.0-15.5); Immature Grans % 0.2 %; Lymphocytes % 35.6; Mean Corp. HGB Concentration 32.3 g/dL (32.0-36.0); Mean Corpuscular Hemoglobin 30.9 pg (27.0-33.0); Mean Corpuscular Volume 95.5 fL (80-95); Monocytes % 11.3; Neutrophils % 47.5; Platelet Count 292 x1000/uL (130-400); RBC 4.18 m/cumm (4.00-5.20); RBC Distribution Width 15.1 % (11.7-14.6)
[2019-06-01 22:02] LABS: Iron 53 ug/dL (50-170); Total Iron Binding Capacity 358 ug/dL (250-450); Transferrin Sat 15 % (15-50)
[2019-06-01 22:30] LABS: Vitamin B12 891 pg/mL (193-986)
== END 2019-06-01 10:57 ==
LOC: NCHCN 10:37
PROVIDERS: PCP Nurse Practitioner Family; Visit Provider Nurse Practitioner Family
DX: D50.8 Other iron deficiency anemias (principal); R73.03 Prediabetes; F41.9 Anxiety disorder, unspecified; R41.3 Other amnesia; R05 Cough; I25.10 Atherosclerotic heart disease of native coronary artery without angina pectoris; D51.9 Vitamin B12 deficiency anemia, unspecified; M81.0 Age-related osteoporosis without current pathological fracture
CPT/HCPCS: 82607; 83540; 83550; 85025

== ENCOUNTER → 2019-06-22 08:39 | Outpatient (BNVA) | payer MEDICARE, BC, SELFPAY | PROVIDERS: PCP Nurse Practitioner Family; Referring Provider Nurse Practitioner Family; Visit Provider Nurse Practitioner Adult Health | DX: G31.84 Mild cognitive impairment of uncertain or unknown etiology; R29.6 Repeated falls | CPT/HCPCS: 99204; 99215 ==

== ENCOUNTER 2019-07-04 02:06 | Outpatient (CLI) | payer MEDICARE, BC, SELFPAY ==
--- NOTE | 2019-07-04 11:30 | DI.MRI_ITS ---
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 TECHNIQUE: Multiplanar multisequence MRI was performed. COMPARISON: No exams were available for comparison FINDINGS: There are innumerable scattered foci of high signal in the white matter most likely sequela of research and development tester annette microvascular ischemia. There is moderate underlying atrophy. The ventricles are normal in size . The vascular flow voids appear intact. There are no areas of restricted diffusion. No mass, hemor rhage or acute infarct is seen. The orbits, sinuses and pituitary are unremarkable. IMPRESSION: Atrophy and white matter changes. No acute abnormality. DATA REPOSITORY:
== END 2019-07-04 02:26 ==
PROVIDERS: PCP Nurse Practitioner Family; Visit Provider Nurse Practitioner Adult Health
DX: R41.4 Neurologic neglect syndrome (principal); R90.82 White matter disease, unspecified; G31.89 Other specified degenerative diseases of nervous system
CPT/HCPCS: 70551

== ENCOUNTER → 2019-08-15 08:51 | Outpatient (BNVA) | payer MEDICARE, BC, SELFPAY | PROVIDERS: PCP Nurse Practitioner Family; Referring Provider Nurse Practitioner Family; Visit Provider Nurse Practitioner Adult Health | DX: G31.84 Mild cognitive impairment of uncertain or unknown etiology (principal) | CPT/HCPCS: 99213; 99442 ==

== ENCOUNTER 2019-10-03 08:41 | Outpatient (REF) | payer MEDICARE, BC, SELFPAY ==
[2019-10-03 20:45] LABS: ALT 21 U/L (14-59); AST 21 U/L (15-37); Albumin 3.6 g/dL (3.4-5.0); Alkaline Phosphatase 120 U/L (46-116); Anion Gap 7.3 mmol/L (3-11); BUN 14 mg/dL (7-18); Bilirubin, Total 0.8 mg/dL (0.2-1.0); CO2 28.7 mmol/L (21.0-32.0); CREATININE 0.88 mg/dL (0.55-1.02); Calcium 8.9 mg/dL (8.5-10.1); Chloride 109 mmol/L (98-107); Glucose 96 mg/dL (74-106); Hemoglobin A1C 5.8 % (3.8-5.6); Sodium 145 mmol/L (136-145); TSH (W/Ref FT4) 2.35 uIU/mL (0.36-3.74); Total Protein 6.7 g/dL (6.4-8.2)
[2019-10-03 20:58] LABS: Iron 71 ug/dL (50-170)
== END 2019-10-03 09:01 ==
LOC: NCHCN 08:41
PROVIDERS: PCP Nurse Practitioner Family; Visit Provider Nurse Practitioner Family
DX: E03.9 Hypothyroidism, unspecified (principal); R73.03 Prediabetes; D50.9 Iron deficiency anemia, unspecified; I25.10 Atherosclerotic heart disease of native coronary artery without angina pectoris
CPT/HCPCS: 80053; 83036; 83540; 84443

== ENCOUNTER → 2019-11-14 08:31 | Outpatient (BNVA) | payer MEDICARE, BC, SELFPAY | PROVIDERS: PCP Nurse Practitioner Family; Referring Provider Nurse Practitioner Family; Visit Provider Nurse Practitioner Adult Health | DX: G62.89 Other specified polyneuropathies (principal); G31.84 Mild cognitive impairment of uncertain or unknown etiology | CPT/HCPCS: 99213 ==

== ENCOUNTER 2020-03-12 09:57 | Outpatient (REF) | payer MEDICARE, BC, SELFPAY ==
[2020-03-12 21:29] LABS: Absolute Basophil Count 0.03 10^3/uL (0.0-0.2); Absolute Eosinophil Count 0.35 10^3/uL (0.0-0.7); Absolute Lymphocyte Count 2.17 10^3/uL (1.2-3.4); Absolute Monocyte Count 0.53 10^3/uL (0.1-0.8); Absolute Neutrophil Count 2.84 10^3/uL (1.2-6.7); Basophils % 0.5; Eosinophils % 5.9; HCT 41.2 % (36.0-46.0); HGB 13.3 g/dL (11.2-15.7); Lymphocytes % 36.7; MCH 31.9 pg (27.0-33.0); MCHC 32.3 % (32.0-36.0); MCV 98.8 fL (80-95); MPV 9.6 fL (8.0-11.0); Neutrophils % 47.9; Nucleated RBC 0 %; Platelet Count 276 10^3/uL (130-400); RBC 4.17 10^6/uL (3.93-5.22); RDW 13.1 % (11.7-14.6); RDW-SD 47.4 fL; WBC 5.92 10^3/uL (4.4-10.8)
[2020-03-12 22:23] LABS: Iron 64 ug/dL (50-170)
[2020-03-12 22:38] LABS: Vitamin B12 870 pg/mL (193-986)
== END 2020-03-12 10:17 ==
LOC: NCHCN 09:57
PROVIDERS: PCP Nurse Practitioner Family; Visit Provider Nurse Practitioner Family
DX: K30 Functional dyspepsia (principal); G60.9 Hereditary and idiopathic neuropathy, unspecified; R73.03 Prediabetes; F41.9 Anxiety disorder, unspecified; J98.4 Other disorders of lung; I25.10 Atherosclerotic heart disease of native coronary artery without angina pectoris; D50.8 Other iron deficiency anemias; D51.9 Vitamin B12 deficiency anemia, unspecified
CPT/HCPCS: 82607; 83540; 85025

== ENCOUNTER → 2020-05-14 07:51 | Outpatient (BNVA) | payer MEDICARE, BC, SELFPAY | PROVIDERS: PCP Nurse Practitioner Family; Referring Provider Nurse Practitioner Family; Visit Provider Nurse Practitioner Adult Health | DX: G62.9 Polyneuropathy, unspecified (principal); G31.84 Mild cognitive impairment of uncertain or unknown etiology | CPT/HCPCS: 99213; 99442 ==

== ENCOUNTER 2020-08-12 08:58 | Day surgery (SDC) | payer MEDICARE, BC, SELFPAY ==
[2020-08-12 09:09] VITALS: BP 128/66; PULSE 61; RESP 18; TEMP 36.1; O2SAT 93
[2020-08-12] MEDS: Tropicam./Phenyleph. (1/2.5%) 5 ML BTL OS ×3 (09:20→09:30)
[2020-08-12] MEDS: Balanced Salt Soln.-PLUS 500 ML BAG (09:52)
[2020-08-12] MEDS: Tetracaine 0.5% 4 ML BTL OS (09:53)
[2020-08-12] MEDS: Lidocaine 2% Jelly 6 ML SYR (09:54)
[2020-08-12] MEDS: Duovisc Viscoelastic System EACH 1 EACH (09:59)
[2020-08-12] MEDS: Lidocaine 1% Pres-Free 5 ML VIAL (09:59)
[2020-08-12] MEDS: Povidone-Iodine Ophth 30 ML BTL (10:15)
--- NOTE | 2020-08-12 10:21 | W.PM.DSUDISC ---
Discharge Plan Disposition Patient Disposition: HOME Condition: Good Discharge Details Attending Provider: Donavon Mcmillan Primary Care Provider: Prerna Buchanan Home Meds and New Rx's Prescriptions: No Action levalbuterol tartrate [Xopenex HFA] 45 mcg/actuation HFA aerosol inhaler 1 puff IH Q6H PRNRF: 0 aspirin 81 mg tablet,delayed release (DR/EC) 81 mg PO DAILY RF: 0 levothyroxine 75 MCG tablet 75 mcg PO HS RF: 0 atorvastatin 20 mg tablet 20 mg PO QPM Qty: 90 RF: 3 cyanocobalamin (vitamin B-12) [Vitamin B-12] 1,000 mcg Tablet 1,000 mcg PO DAILY RF: 0 acetaminophen 500 mg tablet 500 mg PO Q8H PRN (Reason: pain) Qty: 30 RF: 3 bumetanide 1 mg Tablet 1 mg PO DAILY RF: 0 celecoxib [Celebrex] 200 mg capsule 200 mg PO BID PRN (Reason: pain) RF: 0 verapamil [Verelan] 180 mg capsule,ext rel. pellets 24 hr 180 mg PO HS RF: 0 Discharge Instructions Stand Alone Forms: Post-op Topical Cataract, Julia Casey (DSU) Discharge Orders Discharge Orders: Discharge Order (Routine); Ordered 08/12/20 Ordered By: Donavon Mcmillan DS: Diagnosis Discharge Diagnosis (1) Cortical cataract of left eye: Status: Resolved (2) Nuclear sclerotic cataract of left eye: Status: Resolved
--- NOTE | 2020-08-12 10:22 | W.PM.OP ---
Date of service: 08/12/20 Time of Service: : Operative Note Operative Note DATE OF PROCEDURE: 08/12/20 PRE-OP DIAGNOSIS: Nuclear/cortical cataract, left eye POST-OP DIAGNOSIS: same PROCEDURE: Cataract extraction using phacoemulsification with intraocular lens implant, left eye SURGEON: Donavon Mcmillan ANESTHESIA TYPE: Local By Surgeon and MAC Refer to Anesthesia Record PATHOLOGY: none sent COMPLICATIONS: None Patient was transported to: same day Patient's condition: stable Implants: [employer] / [employer] Tecnis [id number] Indications: Progressive decreased vision due to cataract, left eye Procedure Description: CATARACT SURGERY OPERATIVE REPORT PREOPERATIVE DIAGNOSIS: Nuclear/cortical cataract, left eye POSTOPERATIVE DIAGNOSIS: Same OPERATION: Cataract extraction using phacoemulsification with posterior chamber intraocular lens implant, left eye. IOL: IOL Asl Interpreter/Model: [employer] / ISAMAR Tecnis ZCB00 IOL Power: + 23.5 diopters IOL Serial Number: [id number] Optic Diameter: 6.0mm Haptic/Overall Diameter: 13.0mm PHACO INFO: RishabhTranscatheter Technologieson Vision System with OZil and Active Fluidics Cumulative Dispersed Energy (CDE): 10.16 seconds SURGEON: Donavon Mcmillan MD, ROHINI ANESTHESIA: Monitored Anesthesia Care (MAC), with local sub-tenon's anesthetic infiltration COMPLICATIONS: None SPECIMENS: None INDICATIONS FOR PROCEDURE: Patient is a 75-year-old lady with history of diminished visual acuity in both eyes secondary to the development of nuclear and cortical cataract. In addition, she has an epiretinal membrane of the left eye. She has a history of mild myopia and desires to remain myopic postoperatively, refractive target approximately -1.75. The option of cataract surgery was offered to the patient and she wished to proceed. PROCEDURE: The correct surgical eye was identified and marked as the left eye and the pupil was dilated in the preoperative area using mydriatics and cycloplegics. The dilated pupil size was 8.0 mm. She elected to proceed without sedation.. The patient was brought to the operating room where cardiopulmonary monitoring was instituted and surgical time-out was performed, confirming the correct operative eye and IOL power. Topical anesthesia was administered and ophthalmic povidone-iodine 5% was instilled into the conjunctival fornices. Lidocaine gel was applied to the cornea and the kim-ocular area was prepped with Betadine 10% solution and draped in the usual sterile fashion for intraocular surgery, including an aperture drape. A Tegaderm transparent film dressing was cut in half and used to cover the lashes and lid margins. Care was taken to sequester the lashes and lid margins under the Tegaderm dressing. A lid speculum was placed between the lids of the operative eye and the Matthew-Ivonne operating microscope was maneuvered into position. Kulwinder scissors were then used to make a conjunctival buttonhole approximately 6mm posterior to the limbus in the inferonasal quadrant. Blunt dissection was carried out to expose bare sclera, and a blunt-tipped sub-tenon?s anesthesia cannula was introduced and passed posteriorly along the globe where non-preserved plain lidocaine was injected into posterior sub-Tenon?s space. A sideport knife was used to make a paracentesis port superior/superiortemporally. Intraocular phenylephrine/lidocaine was injected into the anterior chamber. The anterior chamber was then filled with viscoelastic. A 2.4mm keratome knife was used to create a half-thickness groove at the limbus and then to construct a three-plane near-clear corneal tunnel extending 2.0mm into clear cornea in the temporal position. . A flap was raised on the anterior capsule and capsulorhexis forceps were used to complete a continuous curvilinear capsulorhexis of 5.5 mm. Balanced salt solution was then used to perform cortical cleaving hydrodissection and nuclear hydrodelineation until the lens could be freely rotated within the capsular bag. The lens nucleus was then disassembled and removed within the capsular bag and iris plane using phacoemulsification. Residual cortical material was removed using the 45-degree angled silicone I/A tip with 0.3mm port. The posterior capsule was carefully polished to remove as much residual lens epithelial cells as safely possible. The capsular bag was then inflated and the anterior chamber deepened with viscoelastic. The lens implant described above was inserted into the capsular bag using the ISAMAR Sheridan Injector. A Kuglen hook was used to dial the IOL into position. Residual viscoelastic was then removed first from posterior to the IOL, then from the anterior chamber using the I/A handpiece. The lens implant was noted to center nicely within the capsular bag. The incisions were stromally hydrated, and the anterior chamber was reformed using BSS. Then 0.5cc of moxifloxacin 1.0mg/ml were injected into the capsular bag and anterior chamber. The incisions were checked with a Weck spear and found to be secure. Several drops of ophthalmic povidone-iodine 5% were then applied to the eye followed by two drops of Imprimis combination prednisolone/moxifloxacin/nepafenac solution. The drapes were removed and a clear plastic protective eye shield was placed over the eye. The patient was then returned to Same Day Surgery in stable condition.
== END 2020-08-12 10:50 | disposition home or self-care (01) ==
PROVIDERS: PCP Nurse Practitioner Family; Visit Provider Ophthalmology
PROC: (CPT 66984; principal; 2020-08-12 11:30)
DX: H25.12 Age-related nuclear cataract, left eye (principal); R73.03 Prediabetes; I25.10 Atherosclerotic heart disease of native coronary artery without angina pectoris; G62.9 Polyneuropathy, unspecified
CPT/HCPCS: 66984; V2632

== ENCOUNTER 2020-08-26 08:03 | Day surgery (SDC) | payer MEDICARE, BC, SELFPAY ==
[2020-08-26] MEDS: Tropicam./Phenyleph. (1/2.5%) 5 ML BTL OD ×3 (08:24→08:37)
[2020-08-26 08:33] VITALS: BP 134/74; PULSE 67; RESP 17; TEMP 36.5; O2SAT 95
--- NOTE | 2020-08-26 08:54 | W.ANESPRE ---
Anesthesia Assessment and Plan Anesthesia History Personal History: No History of Anesthesia Complications Family History: No Family History of Anesthesia Complications Exercise Tolerance Exercise Tolerance: Metabolic Equivalents<4 Pertinent Negatives Pertinent Negatives: No Symptoms of GERD, No Major Cardiovascular Symptoms or Complaints, No Major Pulmonary Symptoms or Complaints and No History of CVA/TIA Cardiac & Pulmonary Exam Cardiac Exam: Normal S1/S2 Heart Sounds Pulmonary Exam: Clear Bilateral Breath Sounds Airway Exam Known Difficult Airway: No Mallampati Class: 2 Mouth Opening: Normal (> 3cm) Thyromental Distance: Greater than 3 cm Neck Range of Motion: Full ROM Neck Circumference: Thick Teeth Condition: Normal Dentition ASA Classification ASA Score: ASA 3 ASA Emergency: No NPO Status NPO Status: NPO Clears >2 hours, Solids >8 hours Status Status: Not Per Patient Anesthesia Plan Anesthesia Technique: MAC Anesthesia (MKO given at 0850) Airway Planned: Natural Airway Monitors Used: Standard Monitors Imaging and Studies Imaging and Studies Echocardiogram Summary . Left ventricle: The cavity size was normal. Wall thickness was normal. Systolic function was normal. The estimated ejection fraction was 60-65%. Wall motion was normal; there were no regional wall motion abnormalities. 2. Aortic valve: Trileaflet; mildly thickened leaflets. There was trivial regurgitation. 3. Mitral valve: Mildly thickened leaflets. There was no evidence for stenosis. There was mild regurgitation. 4. Left atrium: The atrium was normal in size. General Info Date of Service This is a Shared Provider Document. All providers who document on this will be required to sign document once completed. Please Communicate with Team Date Performed: 08/26/20 Height: 5 ft 2.6 in Weight: 86.7 kg Body Mass Index (BMI): 34.2 Surgical Procedure: Operation Date: 08/26/20 10:40 Proposed Procedures Side Surgeon p Cataract Extraction with IOL Implant Right Donavon Mcmillan MD Vital Signs and Lab Results Vital Signs Most Recent Vital Signs in EMR: Most Recent Vital Signs Temp Pulse Resp BP Pulse Ox 36.5 C 67 17 134/74 95 08/26/20 08:33 08/26/20 08:33 08/26/20 08:33 08/26/20 08:33 08/26/20 08:33 Point of Care Results Nursing Point of Care Results: No Data to Display Lab Results Blood Type / Crossmatch: No Data to Display Complete Blood Count: White Blood Count 5.92 10^3/uL (4.4-10.8) 03/12/20 09:29 03/12/20 Red Blood Count 4.17 10^6/uL (3.93-5.22) 03/12/20 09:29 03/12/20 Hemoglobin 13.3 g/dL (11.2-15.7) 03/12/20 09:03/12/20 Hematocrit 41.2 % (36.0-46.0) 03/12/20 09:29 03/12/20 Platelet Count 276 10^3/uL (130-400) 03/12/20 09:29 03/12/20 Complete Metabolic Panel: Sodium Level 145 mmol/L (136-145) 10/03/19 08:10 10/03/19 Potassium Level 4.0 mmol/L (3.5-5.1) 10/03/19 08:10 10/03/19 Chloride Level 109 mmol/L (98-107) H 10/03/19 08:10 10/03/19 Carbon Dioxide Level 28.7 mmol/L (21.0-32.0) 10/03/19 08:10 10/03/19 Blood Urea Nitrogen 14 mg/dL (7-18) 10/03/19 08:10 10/03/19 Creatinine 0.88 mg/dL (0.55-1.02) 10/03/19 08:10 10/03/19 Magnesium Level 1.9 mg/dL (1.8-2.4) 10/26/18 15:24 10/26/18 Calcium Level 8.9 mg/dL (8.5-10.1) 10/03/19 08:10 10/03/19 Albumin 3.6 g/dL (3.4-5.0) 10/03/19 08:10 10/03/19 Glucose Level 96 mg/dL (74-106) 10/03/19 08:10 10/03/19 Hemoglobin A1c 5.8 % (3.8-5.6) H 10/03/19 08:10 10/03/19 Liver Function Panel: Alanine Aminotransferase (ALT/SGPT) 21 U/L (14-59) 10/03/19 08:10 10/03/19 Aspartate Amino Transf (AST/SGOT) 21 U/L (15-37) 10/03/19 08:10 10/03/19 Coagulation Panel: INR International Normalized Ratio 1.0 (1.0-3.5) 01/14/18 17:53 01/14/18 Prothrombin Time 10.1 sec (9.3-10.8) 01/14/18 17:53 01/14/18 Activated Partial Thromboplast Time 25.6 sec (21.0-31.4) 01/14/18 17:53 01/14/18 D-Dimer 1080 ng/mlFEU (<500) H 01/14/18 15:05 01/14/18 Cardiac Panel: Troponin I < 0.02 ng/mL (0.00-0.06) 01/14/18 17:53 01/14/18 MG-Kdp-W-Type Natriuretic Peptide 17 pg/mL (-299) 10/26/18 15:24 10/26/18 Creatine Kinase 99 U/L (26 - 192) 01/14/18 15:05 01/14/18 Arterial Blood Gas: No Data to Display Venous Blood Gas: No Data to Display Pancreas Panel: No Data to Display Thyroid Panel: Thyroid Stimulating Hormone (TSH) 2.35 uIU/mL (0.36-3.74) 10/03/19 08:10 10/03/19 Thyroxine (T4) 6.0 ug/dL (4.5-12.5) 11/10/11 07:52 11/10/11 Infectious Disease: No Data to Display Blood Cultures: Blood Culture Toxicology Panel: No Data to Display Panel: No Data to Display PFSH Medical History Anemia, iron deficiency Anxiety Atopic dermatitis B12 deficiency Benign positional vertigo CAD (coronary artery disease) Carpal tunnel syndrome Chest pain COPD (chronic obstructive pulmonary disease) Cough Decreased hearing Dyspnea on exertion Falls Fatigue Frequent falls Heart failure Hypothyroid Left-sided neglect Mammogram abnormal Memory impairment Mild cognitive impairment Mitral valve prolapse Osteopenia Osteoporosis Peripheral neuropathy Pre-diabetes Preventative health care Restrictive lung disease Vestibular migraine Surgical History Arthritis of left wrist 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 02/08/2019 History of cardiac catheterization without stenting History of colonoscopy Hx of cataract surgery Ligation of fallopian tube Tonsillectomy and adenoidectomy Social History Smoking/Tobacco Use Status: Never Smoking risk assessment performed?: Yes Alcohol Intake: former Drug use: Never Substance use type: does not use Household members: spouse Housing: house Number of Children: 2 Pets and animals: Yes Pets and animals: dog(s) Current gender identity: female What is your relationship status?: Panel score (0-1 are the most socially isolated patients): 1 Seatbelt use: always Do you feel safe at home: Yes Do you feel safe in your relationship?: Yes Meds Allergies and Home Medications Allergies Allergy/AdvReac Type Severity Reaction Status Date / Time alendronate sodium AdvReac Mild Nausea Unverified 08/26/20 08:29 [From Fosamax] torsemide AdvReac Verified 08/26/20 08:29 Current Visit Medication Generic Name Dose Route Start Last Admin Trade Name Freq PRN Reason Stop Dose Admin Acetaminophen 1,000 mg 08/26/20 06:00 Acetaminophen 500 Mg Tab PO Q4H PRN PRN Miscellaneous Medication 0 ml 08/26/20 06:00 Prednisolone 1%, Moxifloxacin 0.5%, Nepafenac 0.1% 5ml Btl OD DIRECTED FOR[facility] LAT[facility] Miscellaneous Medication 0 ml 08/26/20 06:00 08/26/20 08:37 Tropicam./Phenyleph. (1/2.5%) 5 Ml Btl OD 1 drp DIRECTED FOR[facility] Administration Tetracaine HCl 0 ml 08/26/20 06:00 Tetracaine 0.5% 4 Ml Btl OD DIRECTED FOR[facility] Home Medication Medication Instructions Recorded levothyroxine 75 mcg PO HS tab-cap 01/31/14 atorvastatin 20 mg tablet 20 mg PO QPM #90 tab 04/04/18 levalbuterol tartrate 45 1 puff IH Q6H PRN 11/30/18 mcg/actuation aerosol inhaler cyanocobalamin (vitamin B-12) 1,000 mcg PO DAILY 02/02/19 [Vitamin B-12] acetaminophen 500 mg PO Q8H PRN #30 tab 02/08/19 aspirin 81 mg tablet,delayed 81 mg PO DAILY 07/14/20 release bumetanide 1 mg PO DAILY 08/08/20 celecoxib [Celebrex] 200 mg PO BID PRN 08/12/20 verapamil [Verelan] 180 mg PO HS 08/12/20
[2020-08-26 09:12] VITALS: BMI 34.2
[2020-08-26] MEDS: Tetracaine 0.5% 4 ML BTL OD (09:32)
[2020-08-26] MEDS: Balanced Salt Soln.-PLUS 500 ML BAG (09:34)
[2020-08-26] MEDS: Duovisc Viscoelastic System EACH 1 EACH (09:34)
[2020-08-26] MEDS: Lidocaine 2% Jelly 6 ML SYR (09:35)
[2020-08-26] MEDS: Lidocaine 1% Pres-Free 5 ML VIAL (09:35)
[2020-08-26] MEDS: Povidone-Iodine Ophth 30 ML BTL (09:36)
[2020-08-26 09:55] VITALS: BP 111/71; PULSE 68; RESP 16; TEMP 36.4; O2SAT 95
--- NOTE | 2020-08-26 10:00 | W.PM.DSUDISC ---
Discharge Plan Disposition Patient Disposition: HOME Condition: Good Discharge Details Attending Provider: Donavon Mcmillan Primary Care Provider: Prerna Buchanan Home Meds and New Rx's Prescriptions: No Action levalbuterol tartrate [Xopenex HFA] 45 mcg/actuation HFA aerosol inhaler 1 puff IH Q6H PRNRF: 0 aspirin 81 mg tablet,delayed release (DR/EC) 81 mg PO DAILY RF: 0 levothyroxine 75 MCG tablet 75 mcg PO HS RF: 0 atorvastatin 20 mg tablet 20 mg PO QPM Qty: 90 RF: 3 cyanocobalamin (vitamin B-12) [Vitamin B-12] 1,000 mcg Tablet 1,000 mcg PO DAILY RF: 0 acetaminophen 500 mg tablet 500 mg PO Q8H PRN (Reason: pain) Qty: 30 RF: 3 bumetanide 1 mg Tablet 1 mg PO DAILY RF: 0 celecoxib [Celebrex] 200 mg capsule 200 mg PO BID PRN (Reason: pain) RF: 0 verapamil [Verelan] 180 mg capsule,ext rel. pellets 24 hr 180 mg PO HS RF: 0 Discharge Instructions Stand Alone Forms: Post-op Topical Cataract, Julia Casey (DSU) Discharge Orders Discharge Orders: Discharge Order (Routine); Ordered 08/26/20 Ordered By: Donavon Mcmillan DS: Diagnosis Discharge Diagnosis (1) Nuclear sclerotic cataract of right eye: Status: Resolved (2) Cortical cataract of right eye: Status: Resolved
--- NOTE | 2020-08-26 10:01 | ROE_ITS ---
Date of service: 08/26/20 Time of Service: 10:01 Operative Note Operative Note DATE OF PROCEDURE: 08/26/20 PRE-OP DIAGNOSIS: Nuclear/cortical cataract, right eye POST-OP DIAGNOSIS: same PROCEDURE: Cataract extraction using phacoemulsification with intraocular lens implant, right eye SURGEON: Donavon Mcmillan ANESTHESIA TYPE: Local By Surgeon and MAC Refer to Anesthesia Record ESTIMATED BLOOD LOSS: 0 PATHOLOGY: none sent COMPLICATIONS: None Patient was transported to: same day Patient's condition: stable Implants: [employer] / [employer] Tecnis [id number] intraocular lens Indications: Progressive decreased vision due to cataract, right eye Procedure Description: CATARACT SURGERY OPERATIVE REPORT PREOPERATIVE DIAGNOSIS: Nuclear/cortical cataract, right eye POSTOPERATIVE DIAGNOSIS: Same OPERATION: Cataract extraction using phacoemulsification with posterior chamber intraocular lens implant, right eye. IOL: IOL Felt Hooker/Model: [employer] / ISAMAR Tecnis [id number] IOL Power: + 24.5 diopters IOL Serial Number: [id number] Optic Diameter: 6.0mm Haptic/Overall Diameter: 13.0mm PHACO INFO: Rishabh Ball[employer] Vision System with OZil and Active [employer]uidics Cumulative Dispersed Energy (CDE): 8.64 seconds SURGEON: Donavon Mcmillan MD, ROHINI ANESTHESIA: Monitored Anesthesia Care (MAC), with local sub-tenon's anesthetic infiltration COMPLICATIONS: None SPECIMENS: None INDICATIONS FOR PROCEDURE: The patient is a 75-year-old lady with history of diminished visual acuity in both eyes secondary to the development of bilateral nuclear and cortical cataract. She has already undergone cataract surgery in the left eye and is doing well postoperatively. She desires a mildly myopic refractive target of - 1.75 diopters. She now presents for cataract surgery of the right eye. PROCEDURE: The correct surgical eye was identified and marked as the right eye and the pupil was dilated in the preoperative area using mydriatics and cycloplegics. The dilated pupil size was 6.5 mm. Oral sedation was administered in the form of an Imprimis MKO Melt (midazolam 3mg/ketamine 25mg/ondansetron 2mg). The patient was brought to the operating room where cardiopulmonary monitoring was instituted and surgical time-out was performed, confirming the correct operative eye and IOL power. Topical anesthesia was administered and ophthalmic povidone-iodine 5% was instilled into the conjunctival fornices. Lidocaine gel was applied to the cornea and the kim-ocular area was prepped with Betadine 10% solution and draped in the usual sterile fashion for intraocular surgery, including an aper ture drape. A Tegaderm transparent film dressing was cut in half and used to cover the lashes and lid margins. Care was taken to sequester the lashes and lid margins under the Tegaderm dressing. A lid speculum was placed between the lids of the operative eye and the Matthew-Ivonne operating microscope was maneuvered into position. Kulwinder scissors were then used to make a conjunctival buttonhole approximately 6mm posterior to the limbus in the inferonasal quadrant. Blunt dissection was carried out to expose bare sclera, and a blunt-tipped sub-tenon?s anesthesia cannula was introduced and passed posteriorly along the globe where non- preserved plain lidocaine was injected into posterior sub-Tenon?s space. A sideport knife was used to make a paracentesis port inferiortemporally. Intraocular phenylephrine/lidocaine was injected into the anterior chamber. The anterior chamber was then filled with viscoelastic. A 2.4mm keratome knife was used to create a half-thickness groove at the limbus and then to construct a three-plane near-clear corneal tunnel extending 2.0mm into clear cornea in the superiortemporal position. . A flap was raised on the anterior capsule and capsulorhexis forceps were used to complete a continuous curvilinear capsulorhexis of 5.0 mm. Balanced salt solution was then used to perform cortical cleaving hydrodissection and nuclear hydrodelineation until the lens could be freely rotated within the capsular bag. The lens nucleus was then disassembled and removed within the capsular bag and iris plane using phacoemulsification. Residual cortical material was removed using the I/A handpiece. The posterior capsule was carefully polished to remove as much residual lens epithelial cells as safely possible. The capsular bag was then inflated and the anterior chamber deepened with viscoelastic. The lens implant described above was inserted into the capsular bag using the ISAMAR Alsey Injector. A Kuglen hook was used to dial the IOL into position. Residual viscoelastic was then removed first from posterior to the IOL, then from the anterior chamber using the I/A handpiece. The lens implant was noted to center nicely within the capsular bag. The incisions were stromally hydrated, and the anterior chamber was reformed using BSS. Then 0.5cc of moxifloxacin 1.0mg/ml were injected into the capsular bag and anterior chamber. The incisions were checked with a Weck spear and found to be secure. Several drops of ophthalmic povidone-iodine 5% were then applied to the eye followed by two drops of Imprimis combination prednisolone/moxifloxacin/nepafenac solution. The drapes were removed and a clear plastic protective eye shield was placed over the eye. The patient was then returned to Same Day Surgery in stable condition.
[2020-08-26] MEDS: Acetaminophen 500 MG TAB 1000 MG PO (10:04)
--- NOTE | 2020-08-26 10:15 | W.ANESPOSTOP ---
Postoperative Evaluation Date, Time and Location Date Performed: 08/26/20 Time Performed: 10:15 Patient Location: Day Surgery Unit Vital Signs Most Recent Imported Vital Signs: Most Recent Vital Signs Temp Pulse Resp BP Pulse Ox 36.4 C L 68 16 111/71 95 08/26/20 09:55 08/26/20 09:55 08/26/20 09:55 08/26/20 09:55 08/26/20 09:55 Assessment Mental Status: Awake (Alert & Oriented to Patient Baseline) Airway and Respiratory Function: Patent airway with normal (patient baseline) respiratory exam Cardiovascular Function: Hemodynamically Stable Hydration Status: Adequately Hydrated Nausea & Vomiting: No Nausea or Vomiting Pain: Pt. Denies Any Pain Peripheral Nerve Block: Patient did not receive a nerve block
--- NOTE | 2020-08-26 10:16 | W.ANESPRE ---
Anesthesia Assessment and Plan Anesthesia History Personal History: No History of Anesthesia Complications Family History: No Family History of Anesthesia Complications Exercise Tolerance Exercise Tolerance: Metabolic Equivalents>4 Cardiac & Pulmonary Exam Cardiac Exam: Normal S1/S2 Heart Sounds Pulmonary Exam: Clear Bilateral Breath Sounds Airway Exam Known Difficult Airway: No Mallampati Class: 2 Mouth Opening: Normal (> 3cm) Thyromental Distance: Greater than 3 cm Neck Range of Motion: Full ROM Neck Circumference: Thick Teeth Condition: Normal Dentition ASA Classification ASA Score: ASA 2 ASA Emergency: No NPO Status NPO Status: NPO Clears >2 hours, Solids >8 hours Status Status: Not Relevant due to Medical History Anesthesia Plan Anesthesia Technique: MAC Anesthesia Airway Planned: Natural Airway Monitors Used: Standard Monitors Imaging and Studies Imaging and Studies Echocardiogram Summary . Left ventricle: The cavity size was normal. Wall thickness was normal. Systolic function was normal. The estimated ejection fraction was 60-65%. Wall motion was normal; there were no regional wall motion abnormalities. 2. Aortic valve: Trileaflet; mildly thickened leaflets. There was trivial regurgitation. 3. Mitral valve: Mildly thickened leaflets. There was no evidence for stenosis. There was mild regurgitation. 4. Left atrium: The atrium was normal in size. General Info Date of Service This is a Shared Provider Document. All providers who document on this will be required to sign document once completed. Please Communicate with Team Date Performed: 08/26/20 Height: 5 ft 2.6 in Weight: 86.7 kg Body Mass Index (BMI): 34.2 Surgical Procedure: Operation Date: 08/26/20 10:40 Proposed Procedures Side Surgeon p Cataract Extraction with IOL Implant Right Donavon Mcmillan MD Actual Procedures Side Surgeon p Cataract Extraction with IOL Implant Right Donavon Mcmillan MD Pre-Op Diagnosis Post-Op Diagnosis CATARACT RIGHT EYE CATARACT RIGHT EYE Vital Signs and Lab Results Vital Signs Most Recent Vital Signs in EMR: Most Recent Vital Signs Temp Pulse Resp BP Pulse Ox 36.4 C L 68 16 111/71 95 08/26/20 09:55 08/26/20 09:55 08/26/20 09:55 08/26/20 09:55 08/26/20 09:55 Point of Care Results Nursing Point of Care Results: No Data to Display Lab Results Blood Type / Crossmatch: No Data to Display Complete Blood Count: White Blood Count 5.92 10^3/uL (4.4-10.8) 03/12/20 09:29 03/12/20 Red Blood Count 4.17 10^6/uL (3.93-5.22) 03/12/20 09:29 03/12/20 Hemoglobin 13.3 g/dL (11.2-15.7) 03/12/20 09:29 03/12/20 Hematocrit 41.2 % (36.0-46.0) 03/12/20 09:29 03/12/20 Platelet Count 276 10^3/uL (130-400) 03/12/20 09:29 03/12/20 Complete Metabolic Panel: Sodium Level 145 mmol/L (136-145) 10/03/19 08:10 10/03/19 Potassium Level 4.0 mmol/L (3.5-5.1) 10/03/19 08:10 10/03/19 Chloride Level 109 mmol/L (98-107) H 10/03/19 08:10 10/03/19 Carbon Dioxide Level 28.7 mmol/L (21.0-32.0) 10/03/19 08:10 10/03/19 Blood Urea Nitrogen 14 mg/dL (7-18) 10/03/19 08:10 10/03/19 Creatinine 0.88 mg/dL (0.55-1.02) 10/03/19 08:10 10/03/19 Magnesium Level 1.9 mg/dL (1.8-2.4) 10/26/18 15:24 10/26/18 Calcium Level 8.9 mg/dL (8.5-10.1) 10/03/19 08:10 10/03/19 Albumin 3.6 g/dL (3.4-5.0) 10/03/19 08:10 10/03/19 Glucose Level 96 mg/dL (74-106) 10/03/19 08:10 10/03/19 Hemoglobin A1c 5.8 % (3.8-5.6) H 10/03/19 08:10 10/03/19 Liver Function Panel: Alanine Aminotransferase (ALT/SGPT) 21 U/L (14-59) 10/03/19 08:10 10/03/19 Aspartate Amino Transf (AST/SGOT) 21 U/L (15-37) 10/03/19 08:10 10/03/19 Coagulation Panel: INR International Normalized Ratio 1.0 (1.0-3.5) 01/14/18 17:53 01/14/18 Prothrombin Time 10.1 sec (9.3-10.8) 01/14/18 17:53 01/14/18 Activated Partial Thromboplast Time 25.6 sec (21.0-31.4) 01/14/18 17:53 01/14/18 D-Dimer 1080 ng/mlFEU (<500) H 01/14/18 15:05 01/14/18 Cardiac Panel: Troponin I < 0.02 ng/mL (0.00-0.06) 01/14/18 17:53 01/14/18 XL-Jlp-Q-Type Natriuretic Peptide 17 pg/mL (-299) 10/26/18 15:24 10/26/18 Creatine Kinase 99 U/L (26 - 192) 01/14/18 15:05 01/14/18 Arterial Blood Gas: No Data to Display Venous Blood Gas: No Data to Display Pancreas Panel: No Data to Display Thyroid Panel: Thyroid Stimulating Hormone (TSH) 2.35 uIU/mL (0.36-3.74) 10/03/19 08:10 10/03/19 Thyroxine (T4) 6.0 ug/dL (4.5-12.5) 11/10/11 07:52 11/10/11 Infectious Disease: No Data to Display Blood Cultures: Blood Culture Toxicology Panel: No Data to Display Panel: No Data to Display PFSH Active Problems Active Problems: Problem Status Category Onset Code Migraine with vertigo Medical 08/06/14 G43.109 Nuclear sclerotic cataract of left eye Surgical H25.12 Cortical cataract of left eye Surgical H26.9 Nuclear sclerotic cataract of right eye Surgical H25.11 Cortical cataract of right eye Surgical H26.9 Peripheral neuropathy Medical G62.9 Falls Medical [id number].XXXA Mild cognitive impairment Medical G31.84 Left-sided neglect Medical R41.4 Arthritis of left wrist Surgical M19.032 Medical History (Updated 08/26/20 @ 10:00 by Donavon Mcmillan MD) Anemia, iron deficiency Anxiety Atopic dermatitis B12 deficiency Benign positional vertigo CAD (coronary artery disease) Carpal tunnel syndrome Chest pain COPD (chronic obstructive pulmonary disease) Cough Decreased hearing Dyspnea on exertion Falls Fatigue Frequent falls Heart failure Hypothyroid Left-sided neglect Mammogram abnormal Memory impairment Mild cognitive impairment Mitral valve prolapse Osteopenia Osteoporosis Peripheral neuropathy Pre-diabetes Preventative health care Restrictive lung disease Vestibular migraine Surgical History (Updated 08/26/20 @ 10:00 by Donavon Mcmillan MD) Arthritis of left wrist 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 02/08/2019 History of cardiac catheterization without stenting History of colonoscopy Hx of cataract surgery Ligation of fallopian tube Tonsillectomy and adenoidectomy Social History Smoking/Tobacco Use Status: Never Smoking risk assessment performed?: Yes Alcohol Intake: former Drug use: Never Substance use type: does not use Household members: spouse Housing: house Number of Children: 2 Pets and animals: Yes Pets and animals: dog(s) Current gender identity: female What is your relationship status?: Panel score (0-1 are the most socially isolated patients): 1 Seatbelt use: always Do you feel safe at home: Yes Do you feel safe in your relationship?: Yes Meds Allergies and Home Medications Allergies Allergy/AdvReac Type Severity Reaction Status Date / Time alendronate sodium AdvReac Mild Nausea Unverified 08/26/20 08:29 [From Fosamax] torsemide AdvReac Verified 08/26/20 08:29 Home Medication Medication Instructions Recorded levothyroxine 75 mcg PO HS tab-cap 01/31/14 atorvastatin 20 mg tablet 20 mg PO QPM #90 tab 04/04/18 levalbuterol tartrate 45 1 puff IH Q6H PRN 11/30/18 mcg/actuation aerosol inhaler cyanocobalamin (vitamin B-12) 1,000 mcg PO DAILY 02/02/19 [Vitamin B-12] acetaminophen 500 mg PO Q8H PRN #30 tab 02/08/19 aspirin 81 mg tablet,delayed 81 mg PO DAILY 11/14/19 release bumetanide 1 mg PO DAILY 08/08/20 celecoxib [Celebrex] 200 mg PO BID PRN 08/12/20 verapamil [Verelan] 180 mg PO HS 08/12/20
[2020-08-26 10:23] VITALS: BP 116/66; PULSE 72; RESP 16; TEMP 36.5; O2SAT 94
[2020-08-26 10:35] VITALS: BP 115/68; PULSE 65; RESP 16; TEMP 35.8; O2SAT 94
[2020-08-26 13:12] VITALS: BMI 34.2
== END 2020-08-26 10:39 | disposition home or self-care (01) ==
PROVIDERS: PCP Nurse Practitioner Family; Visit Provider Ophthalmology
PROC: (CPT 66984; principal; 2020-08-26 10:30)
DX: H25.11 Age-related nuclear cataract, right eye (principal); H25.011 Cortical age-related cataract, right eye; Z98.42 Cataract extraction status, left eye; Z96.1 Presence of intraocular lens
CPT/HCPCS: 66984; V2632

== ENCOUNTER 2020-09-16 02:16 | Outpatient (CLI) | payer MEDICARE, BC, SELFPAY ==
--- NOTE | 2020-09-16 09:00 | DI.MAMMO_ITS ---
Exam(s) MAMMO SCREENING EXAM: MAMMO SCREENING CLINICAL HISTORY: SCREENING, Z12.31. TECHNIQUE: Bilateral full field digital CC and MLO mammographic images were obtained with 3D tomosyn thesis and utilizing computer aided detection (CAD). COMPARISON: Prior mammograms dating back to 2012, the most recent being August 2018. FINDINGS: The fibroglandular tissue pattern is again noted be moderately dense, decreasing sensitivity mammogra m for finding hidden underlying lesions. Inferiorly in the left breast there is in nodular density which is most probably a skin mole, given i ts very peripheral visualization inferiorly. This located inferior laterally. Was previously presen t. Slightly increased in size. No new spiculated left breast masses nor malignant-appearing microca lcification groups. Benign-appearing lymph nodes seen lateral of center in the right breast, unchang ed from prior studies. There is no significant architectural distortion nor skin thickening-retraction. IMPRESSION: Moderately dense fibroglandular tissue. Benign findings. No obvious radiographic evidence of malign lakeisha BI-RADS Category 2 - Benign Findings Breast Density - Category C - Heterogeneously dense Breast density Category C or D implies that the patient has dense breast tissue. Dense breast tissue can make it harder to find cancer on a mammogram. Dense breast tissue is also associated with an incr eased risk of breast cancer. This information about the result of the mammogram report was provided to the patient to raise their awareness. Use this report when you speak with the patient about their risks for breast cancer, which includes their family history. At that time, you may recommend additional screening tests (Ultrasoun d or MRI) as these tests may add significant information. A negative radiographic report should not delay biopsy if a dominant or clinically suspicious mass is present. Up to ten percent of cancers are not identified on mammography. A negative report may reinforce clinical impression. Adenosis and dense breasts may obscure an underlying neoplasm. False positive reports average 6 to 10%. Patient will receive a letter notifying them of these results.
== END 2020-09-16 02:36 ==
PROVIDERS: PCP Nurse Practitioner Family; Visit Provider Nurse Practitioner Family
DX: Z12.31 Encounter for screening mammogram for malignant neoplasm of breast (principal)
CPT/HCPCS: 77063; 77067

== ENCOUNTER 2020-10-17 13:19 | Outpatient (REF) | payer MEDICARE, BC, SELFPAY ==
[2020-10-17 13:53] LABS: Abs Immature Grans 0.01 10^3/uL (0.0-0.06); Absolute Basophil Count 0.03 10^3/uL (0.0-0.2); Absolute Eosinophil Count 0.32 10^3/uL (0.0-0.7); Absolute Lymphocyte Count 1.97 10^3/uL (1.2-3.4); Absolute Monocyte Count 0.58 10^3/uL (0.1-0.8); Absolute Neutrophil Count 2.15 10^3/uL (1.2-6.7); Basophils % 0.6; Eosinophils % 6.3; HCT 41.4 % (36.0-46.0); HGB 13.1 g/dL (11.2-15.7); Immature Grans % 0.2; Lymphocytes % 38.9; MCH 31.1 pg (27.0-33.0); MCHC 31.6 % (32.0-36.0); MCV 98.3 fL (80-95); MPV 9.7 fL (8.0-11.0); Monocytes % 11.5; Neutrophils % 42.5; Nucleated RBC 0 %; Platelet Count 286 10^3/uL (130-400); RBC 4.21 10^6/uL (3.93-5.22); RDW 13.9 % (11.7-14.6); RDW-SD 50.8 fL; WBC 5.06 10^3/uL (4.4-10.8)
[2020-10-17 14:08] LABS: Iron 45 ug/dL (50-170); Total Iron Binding Capacity 390 ug/dL (250-450); Transferrin Sat 12 % (15-50)
[2020-10-17 14:09] LABS: Hemoglobin A1C 5.8 % (<5.7)
[2020-10-17 14:35] LABS: Vitamin D 25 Total 23.6 ng/mL (30-100)
[2020-10-17 14:36] LABS: ALT 23 U/L (14-59); AST 21 U/L (15-37); Albumin 3.8 g/dL (3.4-5.0); Alkaline Phosphatase 128 U/L (46-116); Anion Gap 9.6 mmol/L (3-11); BUN 13 mg/dL (7-18); Bilirubin, Total 0.7 mg/dL (0.2-1.0); CO2 26.4 mmol/L (21.0-32.0); CREATININE 0.7 mg/dL (0.55-1.02); Calcium 8.9 mg/dL (8.5-10.1); Chloride 113 mmol/L (98-107); Ferritin 15 ng/mL (8-252); Glucose 98 mg/dL (74-106); Potassium 4.3 mmol/L (3.5-5.1); Sodium 149 mmol/L (136-145); TSH (W/Ref FT4) 2.42 uIU/mL (0.36-3.74); Total Protein 7.2 g/dL (6.4-8.2); Vitamin B12 1439 pg/mL (193-986)
== END 2020-10-17 13:20 | disposition home or self-care (01) ==
LOC: NCHCN 13:19
PROVIDERS: PCP Nurse Practitioner Family; Visit Provider Nurse Practitioner Family
DX: R73.03 Prediabetes (principal); E03.9 Hypothyroidism, unspecified; I25.10 Atherosclerotic heart disease of native coronary artery without angina pectoris; F41.9 Anxiety disorder, unspecified; K30 Functional dyspepsia; G60.9 Hereditary and idiopathic neuropathy, unspecified; K59.00 Constipation, unspecified; E55.9 Vitamin D deficiency, unspecified; E53.8 Deficiency of other specified B group vitamins
CPT/HCPCS: 80053; 82306; 82607; 82728; 83036; 83540; 83550; 84443; 85025

== ENCOUNTER 2020-10-31 15:36 | Outpatient (REF) | payer MEDICARE, BC, SELFPAY ==
[2020-10-31 21:09] LABS: Anion Gap 6.3 mmol/L (3-11); BUN 13 mg/dL (7-18); CO2 29.7 mmol/L (21.0-32.0); CREATININE 0.8 mg/dL (0.55-1.02); Calcium 9.1 mg/dL (8.5-10.1); Chloride 109 mmol/L (98-107); Glucose 81 mg/dL (74-106); Potassium 4.1 mmol/L (3.5-5.1); Sodium 145 mmol/L (136-145)
== END 2020-10-31 15:37 | disposition home or self-care (01) ==
LOC: NCHCN 15:36
PROVIDERS: PCP Nurse Practitioner Family; Visit Provider Nurse Practitioner Family
DX: E87.0 Hyperosmolality and hypernatremia (principal)
CPT/HCPCS: 80048

== ENCOUNTER → 2020-11-12 08:55 | Outpatient (BNVA) | payer MEDICARE, BC, SELFPAY | PROVIDERS: PCP Nurse Practitioner Family; Referring Provider Nurse Practitioner Family; Visit Provider Nurse Practitioner Adult Health | DX: G62.9 Polyneuropathy, unspecified (principal); G31.84 Mild cognitive impairment of uncertain or unknown etiology | CPT/HCPCS: 99213; 99214 ==

== ENCOUNTER 2020-12-16 03:07 | Outpatient (CLI) | payer MEDICARE, BC, SELFPAY ==
[2020-12-17 13:43] LABS: Albumin 58.1 % (55.8-66.1); Total Protein 6.8 g/dL (6.3-8.2)
== END 2020-12-16 03:08 | disposition home or self-care (01) ==
LOC: LBO 03:07
PROVIDERS: PCP Nurse Practitioner Family; Visit Provider Nurse Practitioner Adult Health
DX: G62.9 Polyneuropathy, unspecified (principal)
CPT/HCPCS: 36415; 84165

== ENCOUNTER 2021-04-15 14:27 | Outpatient (REF) | payer MEDICARE, BC, SELFPAY ==
[2021-04-15 14:21] LABS: Abs Immature Grans 0.02 10^3/uL (0.0-0.06); Absolute Basophil Count 0.05 10^3/uL (0.0-0.2); Absolute Eosinophil Count 0.31 10^3/uL (0.0-0.7); Absolute Lymphocyte Count 2.23 10^3/uL (1.2-3.4); Absolute Monocyte Count 0.69 10^3/uL (0.1-0.8); Absolute Neutrophil Count 2.97 10^3/uL (1.2-6.7); Basophils % 0.8; Eosinophils % 4.9; HCT 42.6 % (36.0-46.0); HGB 13.5 g/dL (11.2-15.7); Immature Grans % 0.3; Lymphocytes % 35.6; MCHC 31.7 % (32.0-36.0); MCV 97.9 fL (80-95); MPV 9.4 fL (8.0-11.0); Neutrophils % 47.4; Nucleated RBC 0 %; Platelet Count 279 10^3/uL (130-400); RBC 4.35 10^6/uL (3.93-5.22); RDW 13.9 % (11.7-14.6); WBC 6.27 10^3/uL (4.4-10.8)
[2021-04-15 15:21] LABS: Iron 90 ug/dL (50-170); Total Iron Binding Capacity 382 ug/dL (250-450); Transferrin Sat 24 % (15-50)
[2021-04-15 15:25] LABS: Hemoglobin A1C 6.1 % (<5.7)
[2021-04-15 15:31] LABS: Anion Gap 6.6 mmol/L (3-11); BUN 13 mg/dL (7-18); CO2 33.4 mmol/L (21.0-32.0); CREATININE 0.9 mg/dL (0.55-1.02); Calcium 9.4 mg/dL (8.5-10.1); Calculated LDL 86 mg/dL (<100); Chloride 104 mmol/L (98-107); Cholesterol 169 mg/dL (<200); Ferritin 15 ng/mL (8-252); Glucose 129 mg/dL (74-106); HDL Cholesterol 65 mg/dL (40-60); Potassium 3.3 mmol/L (3.5-5.1); Sodium 144 mmol/L (136-145); TSH (W/Ref FT4) 0.58 uIU/mL (0.36-3.74); Triglyceride 93 mg/dL (<150); Vitamin B12 686 pg/mL (193-986)
[2021-04-17 00:45] LABS: Vitamin D 25 Total 45.5 ng/mL (30-100)
== END 2021-04-15 14:28 | disposition home or self-care (01) ==
LOC: NCHCN 14:27
PROVIDERS: PCP Nurse Practitioner Family; Visit Provider Nurse Practitioner Family
DX: I25.10 Atherosclerotic heart disease of native coronary artery without angina pectoris (principal); E87.0 Hyperosmolality and hypernatremia; K30 Functional dyspepsia; R73.03 Prediabetes; F41.9 Anxiety disorder, unspecified; F43.23 Adjustment disorder with mixed anxiety and depressed mood; M81.0 Age-related osteoporosis without current pathological fracture; J98.4 Other disorders of lung
CPT/HCPCS: 80048; 80061; 82306; 82607; 82728; 83036; 83540; 83550; 84443; 85025

== ENCOUNTER 2021-04-28 04:30 | Outpatient (CLI) | payer MEDICARE, BC, SELFPAY ==
[2021-04-28] MEDS: Methacholine 100 MG VIAL IH (16:54)
[2021-04-28] MEDS: Albuterol HFA 18 GM 200 PUFF INH IH (16:59)
[2021-04-28] MEDS: Inhaler, Assist Device 1 EACH MC (17:00)
--- NOTE | 2021-04-29 09:15 | W.PFT ---
Date of service: 04/28/21 Time of Service: 15:09 Pulmonary Function Test Result Requesting Provider Prerna Buchanan Indications: Dyspnea on exertion Interpretation Spirometry: There is no airflow limitation. Methacholine challenge testing positive (22% decrease in FEV1) at a dose of 2mg/mL Impression Positive methacholine challenge test Clinical Correlation therefore is recommended.
--- NOTE | 2021-04-29 10:23 | W.PFT ---
Date of service: 04/28/21 Time of Service: 15:09 Pulmonary Function Test Result Requesting Provider Prerna Buchanan Indications: Dyspnea on exertion Interpretation Spirometry: There is no airflow obstruction. Lung Volumes: Lung volumes are normal. Diffusion Capacity: Diffusion is normal. Airway Pressure: Airways resistance is normal Impression Normal pulmonary function testing. Note: Compared to 02/08/18, the FEV1 and FVC are unchanged. The TLC is unchanged. The diffusion has decreased. Clinical Correlation therefore is recommended.
== END 2021-04-28 04:31 | disposition home or self-care (01) ==
PROVIDERS: PCP Nurse Practitioner Family; Visit Provider Nurse Practitioner Family
DX: R06.09 Other forms of dyspnea (principal); R94.2 Abnormal results of pulmonary function studies; J98.4 Other disorders of lung; Z77.22 Contact with and (suspected) exposure to environmental tobacco smoke (acute) (chronic)
CPT/HCPCS: 94060; 94726; 94729; 95070; 94010; J7674

== ENCOUNTER 2021-11-27 02:22 | Outpatient (CLI) | payer MEDICARE, BC, SELFPAY ==
--- NOTE | 2021-11-27 13:34 | DI.CT_ITS ---
Exam(s) CT HEAD WO EXAM: CT HEAD WO CLINICAL HISTORY: LOSS OF BALANCE, R26.89. TECHNIQUE: Imaging Protocol: Axial computed tomography images with coronal and sagittal reformatted images were created and reviewed COMPARISON: No exams were available for comparison FINDINGS: Ventricles and Extra axial spaces: Normal in size and morphology for the patient's age. Hemorrhage: None. Cerebral parenchyma: No acute territorial infarct. There are areas of decreased attenuation in the w ivone matter most consistent with small vessel ischemic disease. Midline shift: None. Brainstem/Cerebellum: Normal. Calvarium: Normal. Visualized Paranasal sinuses/Mastoids: Clear. Soft Tissues: Unremarkable. IMPRESSION: No acute intracranial process. RADIATION DOSE DELIVERED: 742.2mGy.cm Total DLP DATA REPOSITORY: All CT scans at this facility are submitted to the National Radiology Data Registry (NRDR) Dose Index Registry (DIR) with the [employer] (ACR). RADIATION OPTIMIZATION: All CT scans at this facility use at least one of these dose optimization te chniques: automated exposure control; mA and/or kV adjustment per patient size (includes targeted exa ms where dose is matched to clinical indication); or iterative reconstruction.
== END 2021-11-27 02:42 ==
LOC: DI 02:22
PROVIDERS: PCP Nurse Practitioner Family; Visit Provider Family Medicine
DX: R26.89 Other abnormalities of gait and mobility (principal)
CPT/HCPCS: 70450

== ENCOUNTER → 2021-12-04 08:55 | Outpatient (BNVA) | payer MEDICARE, BC, SELFPAY | PROVIDERS: PCP Nurse Practitioner Family; Referring Provider Nurse Practitioner Family; Visit Provider Nurse Practitioner Adult Health | DX: G62.9 Polyneuropathy, unspecified (principal); R73.03 Prediabetes; G31.84 Mild cognitive impairment of uncertain or unknown etiology | CPT/HCPCS: 99214 ==

== ENCOUNTER → 2021-12-31 12:16 | Outpatient (BNVA) | payer MEDICARE, BC, SELFPAY | PROVIDERS: PCP Nurse Practitioner Family; Referring Provider Nurse Practitioner Family; Visit Provider Nurse Practitioner Adult Health | DX: F32.A Depression, unspecified (principal); Z60.4 Social exclusion and rejection; G62.9 Polyneuropathy, unspecified; G31.84 Mild cognitive impairment of uncertain or unknown etiology | CPT/HCPCS: 99213; 99214 ==

== ENCOUNTER 2022-01-22 17:03 | Outpatient (REF) | payer MEDICARE, BC, SELFPAY ==
[2022-01-22 16:00] LABS: Abs Immature Grans 0.01 10^3/uL (0.0-0.06); Absolute Basophil Count 0.07 10^3/uL (0.0-0.2); Absolute Eosinophil Count 0.44 10^3/uL (0.0-0.7); Absolute Lymphocyte Count 2.47 10^3/uL (1.2-3.4); Absolute Monocyte Count 0.81 10^3/uL (0.1-0.8); Absolute Neutrophil Count 3.25 10^3/uL (1.2-6.7); Eosinophils % 6.2; HCT 42.8 % (36.0-46.0); HGB 14.3 g/dL (11.2-15.7); Immature Grans % 0.1; MCHC 33.4 % (32.0-36.0); MCV 93 fL (80-95); MPV 9.7 fL (8.0-11.0); Monocytes % 11.5; Neutrophils % 46.2; Platelet Count 287 10^3/uL (130-400); RBC 4.61 10^6/uL (3.93-5.22); RDW 15.3 % (11.7-14.6); RDW-SD 52.6 fL; WBC 7.05 10^3/uL (4.4-10.8)
[2022-01-22 16:52] LABS: Vitamin D 25 Total 45.3 ng/mL (30-100)
[2022-01-22 17:00] LABS: ALT 24 U/L (14-59); AST 26 U/L (15-37); Albumin 3.9 g/dL (3.4-5.0); Alkaline Phosphatase 111 U/L (46-116); Anion Gap 9.2 mmol/L (3-11); BUN 18 mg/dL (7-18); Bilirubin, Total 1.5 mg/dL (0.2-1.0); CO2 32.8 mmol/L (21.0-32.0); CREATININE 0.9 mg/dL (0.55-1.02); Calcium 9.7 mg/dL (8.5-10.1); Calculated LDL 82 mg/dL (<100); Chloride 103 mmol/L (98-107); Cholesterol 169 mg/dL (<200); Estimated GFR 66.26 (mL/min/1.73m2); Ferritin 18 ng/mL (8-252); Glucose 104 mg/dL (74-106); HDL Cholesterol 71 mg/dL (40-60); Potassium 3.2 mmol/L (3.5-5.1); Sodium 145 mmol/L (136-145); TSH (W/Ref FT4) 0.32 uIU/mL (0.36-3.74); Total Protein 7.6 g/dL (6.4-8.2); Triglyceride 83 mg/dL (<150); Vitamin B12 852 pg/mL (193-986)
[2022-01-22 17:18] LABS: FREE T4 1.29 ng/dL (0.76-1.46)
[2022-01-22 17:53] LABS: Iron 109 ug/dL (50-170); Total Iron Binding Capacity 381 ug/dL (250-450); Transferrin Sat 29 % (15-50)
== END 2022-01-22 17:04 | disposition home or self-care (01) ==
LOC: NCHCN 17:03
PROVIDERS: PCP Nurse Practitioner Family; Visit Provider Nurse Practitioner Family
DX: F43.23 Adjustment disorder with mixed anxiety and depressed mood (principal); D51.9 Vitamin B12 deficiency anemia, unspecified; E87.0 Hyperosmolality and hypernatremia; E55.9 Vitamin D deficiency, unspecified; R73.03 Prediabetes; J45.20 Mild intermittent asthma, uncomplicated
CPT/HCPCS: 80053; 80061; 82306; 82607; 82728; 83540; 83550; 84439; 84443; 85025

== ENCOUNTER 2022-02-25 18:26 | Outpatient (REF) | payer MEDICARE, BC, SELFPAY ==
[2022-02-25 16:58] LABS: Potassium 3.8 mmol/L (3.5-5.1); TSH (W/Ref FT4) 6.78 uIU/mL (0.36-3.74)
[2022-02-25 17:25] LABS: FREE T4 0.88 ng/dL (0.76-1.46)
== END 2022-02-25 18:27 | disposition home or self-care (01) ==
LOC: NCHCN 18:26
PROVIDERS: PCP Nurse Practitioner Family; Visit Provider Nurse Practitioner Family
DX: E03.9 Hypothyroidism, unspecified (principal); E87.6 Hypokalemia
CPT/HCPCS: 84132; 84439; 84443

== ENCOUNTER 2022-04-15 03:11 | Outpatient (CLI) | payer MEDICARE, BC, SELFPAY ==
[2022-04-15 14:28] LABS: TSH 8.61 uIU/mL (0.36-3.74)
[2022-04-16 09:23] LABS: FREE T4 0.93 ng/dL (0.76-1.46)
== END 2022-04-15 03:12 | disposition home or self-care (01) ==
LOC: LBO 03:11
PROVIDERS: PCP Nurse Practitioner Family; Visit Provider Nurse Practitioner Adult Health
DX: E03.9 Hypothyroidism, unspecified (principal); R53.83 Other fatigue
CPT/HCPCS: 36415; 84439; 84443

== ENCOUNTER → 2022-04-20 10:25 | Outpatient (BNVA) | payer MEDICARE, BC, SELFPAY | PROVIDERS: PCP Nurse Practitioner Family; Referring Provider Nurse Practitioner Family; Visit Provider Nurse Practitioner Adult Health | DX: R68.89 Other general symptoms and signs (principal); E03.9 Hypothyroidism, unspecified | CPT/HCPCS: 99213; 99214 ==

== ENCOUNTER 2022-05-07 03:29 | Outpatient (CLI) | payer MEDICARE, BC, SELFPAY ==
--- NOTE | 2022-05-10 21:45 | PDOC.EEG ---
Neurology EEG EEG: [facility] Department of Neurology LONG-TERM AMBULATORY EEG REPORT Date of Recordin05/07/22 at 10:33:01 to 05/08/22 at 11:27:02 Interpreting Physician: Dr. Sharyn Andrade PCP/Referring Provider: Paula Buchanan NP/Vanessa Dorsey NP Reason for study: Anika Tong is a 77 year-old with MCI and recent staring spells. Current Medications: Home Medications Medication Instructions Recorded Confirmed Type atorvastatin 20 mg tablet 20 mg PO QPM #90 tabs 04/04/18 04/20/22 Rx levalbuterol tartrate 45 1 puff inhalation Q6H PRN 11/30/18 04/20/22 History mcg/actuation aerosol inhaler (Xopenex HFA) cyanocobalamin (vitamin B-12) 1,000 mcg PO DAILY 02/02/19 04/20/22 History 1,000 mcg tablet (Vitamin B-12) aspirin 81 mg tablet,delayed 81 mg PO DAILY 11/14/19 04/20/22 History release bumetanide 1 mg tablet 1 mg PO DAILY 08/08/20 04/20/22 History cholecalciferol (vitamin D3) 50 50 mcg PO DAILY 11/12/20 04/20/22 History mcg (2,000 unit) capsule isosorbide mononitrate 60 mg 60 mg PO DAILY 11/12/20 04/20/22 History tablet,extended release 24 hr docusate sodium 100 mg capsule 100 mg PO DAILY 12/04/21 04/20/22 History (Colace) fluticasone propionate 50 1 inh inhalation BID PRN 12/04/21 04/20/22 History mcg/actuation blister powder for inhalation (Flovent Diskus) fluticasone propionate 50 1 spray intranasal DAILY 12/04/21 04/20/22 History mcg/actuation nasal spray,suspension (Flonase Allergy Relief) levothyroxine 50 mcg capsule 50 mcg PO .COMPLEX #90 caps 04/20/22 04/20/22 Rx levothyroxine 75 mcg tablet See Rx Instructions PO DAILY #25 04/20/22 04/20/22 Rx tab-caps potassium chloride 20 mEq 20 meq PO DAILY 04/20/22 04/20/22 History tablet,extended release METHODS: An 18-channel digitized electroencephalogram was recorded in the ambulatory setting with video. The 10/20 international system of electrode placement was used and bipolar and referential electrode montages were recorded. In addition to EEG the patient was monitored for EKG and by video. Activation procedures of photic stimulation and hyperventilation were performed if applicable. The duration of the recording was ~24 hours. DESCRIPTION OF EEG: Waking background activity: During maximal wakefulness a 7-8 Hz posterior background rhythm was present which was well-modulated, symmetrical, reactive to eye opening, and of moderate voltage. Faster frequencies were present in the bilateral anterior head regions. There was a normal anterior-posterior voltage gradient. Drowsy and sleeping background activity: During drowsiness, there was attenuation of the posterior dominant background rhythm and vertex waves. Normal stage II and III sleep was present with symmetrical sleep spindles, K-complexes, and vertex waves with slowing of the background rhythm to delta/theta frequencies. REM sleep manifested by rapid lateral eye movements and faster background rhythms was recorded. Arousal was unremarkable. Interictal abnormalities: There was generalized, moderate-amplitude, polymorphic slowing throughout wakefulness without focal slowing. There were occasional independent, moderate-amplitude C3 and C4 sharps that did not appear epileptic. Ictal findings: Event #1 on 05/08/22 at 03:00 -Clinical manifestations: Mild headache -EEG findings: Normal stage II sleep. Activating Procedures: Photic stimulation was performed which produced a posterior driving response in the right hemisphere only. Hyperventilation was not performed. EKG: EKG revealed normal sinus rhythm with occasional apparent bundle branch block. INTERPRETATION: This long-term EEG is abnormal due to: #1. Generalized slowing and slowing of the PDR. #2. Photic driving in the right hemisphere only. #3. Single event captured as above. PRIOR EEG: none CLINICAL CORRELATION: The background and generalized slowing is suggestive of a mild diffuse cerebral encephalopathy of broad differential including toxic-metabolic etiology. The asymmetric photic driving could indicate an area of focal cerebral dysfunction in the left hemisphere. No definite epileptiform activity was present. Single event captured as above which was not epileptic. Sharyn Andrade MD
== END 2022-05-07 03:30 | disposition home or self-care (01) ==
LOC: RT 03:30
PROVIDERS: PCP Nurse Practitioner Family; Visit Provider Nurse Practitioner Adult Health
DX: R68.89 Other general symptoms and signs (principal); R41.0 Disorientation, unspecified
CPT/HCPCS: 95714; 95720

== ENCOUNTER → 2022-05-25 10:58 | Outpatient (BNVA) | payer MEDICARE, BC, SELFPAY | PROVIDERS: PCP Nurse Practitioner Family; Referring Provider Nurse Practitioner Family; Visit Provider Nurse Practitioner Adult Health | DX: G31.84 Mild cognitive impairment of uncertain or unknown etiology (principal); G25.0 Essential tremor | CPT/HCPCS: 99213 ==

== ENCOUNTER 2022-06-16 02:39 | Outpatient (CLI) | payer MEDICARE, BC, SELFPAY ==
[2022-06-16 14:36] LABS: BUN 13 mg/dL (7-18); CREATININE 0.9 mg/dL (0.55-1.02); Calcium 9.1 mg/dL (8.5-10.1); Chloride 102 mmol/L (98-107); Estimated GFR 65.84 (mL/min/1.73m2); Glucose 128 mg/dL (74-106); Potassium 3.1 mmol/L (3.5-5.1); Sodium 141 mmol/L (136-145); TSH (W/Ref FT4) 3.97 uIU/mL (0.36-3.74)
[2022-06-16 14:58] LABS: FREE T4 0.93 ng/dL (0.76-1.46)
== END 2022-06-16 02:40 | disposition home or self-care (01) ==
LOC: LBO 02:39
PROVIDERS: PCP Nurse Practitioner Family; Visit Provider Nurse Practitioner Family
DX: E03.9 Hypothyroidism, unspecified (principal); E87.6 Hypokalemia; E87.0 Hyperosmolality and hypernatremia
CPT/HCPCS: 36415; 80048; 84439; 84443

== ENCOUNTER → 2022-09-22 07:57 | Outpatient (BNVA) | payer MEDICARE, BC, SELFPAY | PROVIDERS: PCP Nurse Practitioner Family; Referring Provider Nurse Practitioner Family; Visit Provider Nurse Practitioner Adult Health | DX: G31.84 Mild cognitive impairment of uncertain or unknown etiology (principal) | CPT/HCPCS: 99213 ==

== ENCOUNTER 2022-11-20 01:43 | Outpatient (CLI) | payer MEDICARE, BC, SELFPAY ==
[2022-11-20 14:42] LABS: Hemoglobin A1C 6.1 % (<5.7)
[2022-11-20 15:33] LABS: Anion Gap 9.1 mmol/L (3-11); BUN 11 mg/dL (7-18); CO2 27.9 mmol/L (21.0-32.0); CREATININE 0.9 mg/dL (0.55-1.02); Calcium 9.1 mg/dL (8.5-10.1); Chloride 108 mmol/L (98-107); Estimated GFR 65.84 (mL/min/1.73m2); Ferritin 13 ng/mL (8-252); Glucose 134 mg/dL (74-106); Potassium 3.4 mmol/L (3.5-5.1); Sodium 145 mmol/L (136-145); TSH (W/Ref FT4) 1.29 uIU/mL (0.36-3.74); Vitamin B12 1836 pg/mL (193-986)
[2022-11-20 15:56] LABS: Iron 36 ug/dL (50-170); Total Iron Binding Capacity 315 ug/dL (250-450); Transferrin Sat 11 % (15-50)
== END 2022-11-20 01:44 | disposition home or self-care (01) ==
LOC: LBO 01:44
PROVIDERS: PCP Nurse Practitioner Family; Visit Provider Nurse Practitioner Family
DX: D50.8 Other iron deficiency anemias (principal); E87.8 Other disorders of electrolyte and fluid balance, not elsewhere classified; F43.23 Adjustment disorder with mixed anxiety and depressed mood; F41.8 Other specified anxiety disorders; R73.03 Prediabetes; E03.9 Hypothyroidism, unspecified; J45.20 Mild intermittent asthma, uncomplicated; E66.9 Obesity, unspecified; D51.9 Vitamin B12 deficiency anemia, unspecified
CPT/HCPCS: 36415; 80048; 82607; 82728; 83036; 83540; 83550; 84443

== ENCOUNTER 2023-03-07 16:57 | Observation (INO) | payer MEDICARE, BC, SELFPAY ==
[2023-03-07] VITALS (37 sets, daily range): BP systolic 110–142; BP diastolic 48–76; PULSE 67–95; RESP 10–23; TEMP 36.9–37; O2SAT 93–99
--- NOTE | 2023-03-07 16:45 | RT.EKG_ITS ---
APPROVED REPORT Exam: Resting ECG Reason for Exam: ams Patient Location: E HR:74 bpm ECG Measurements Heart Rate 74 AXIS WA 197 P 36 QRSd 156 QRS 67 QT 469 T -19 QTc 519 Conclusion Sinus rhythm.. Right bundle branch block...QRSd>120, terminal axis(90,270) new compared to 2019
--- NOTE | 2023-03-07 16:45 | DI.CT_ITS ---
Exam(s) CT BRAIN NECK CTA EXAM: CT BRAIN NECK CTA CLINICAL HISTORY: ams. TECHNIQUE: Imaging Protocol: Axial CT angiography was performed with multi-slice acquisition and mu lti-planar and/or 3D reconstructions. CONTRAST MATERIAL: Intravenous: Omnipaque 350 contrast volume:[address] HEAD WO from 11/27/2021 FINDINGS: CT Head W/O and W: Ventricles and Extra axial spaces: Normal in size and morphology for the patient's age. Hemorrhage: None. Cerebral parenchyma: There is decreased attenuation in the white matter consistent with small vessel ischemic disease. No midline shift or mass effect is identified. Midline shift: None. Brainstem/Cerebellum: Normal. Calvarium: Normal. Visualized Paranasal sinuses/Mastoids: Clear. Soft Tissues: Unremarkable. Enhancement: Unremarkable. CTA Neck W: Common Carotid: Right: No dissection, occlusion or significant stenosis. Left: No dissection, occlusion or significant stenosis. External Carotid: Right: No occlusion or significant stenosis. Left: No occlusion or significant stenosis. Internal Carotid: Atherosclerosis at the origins of both internal carotid arteries. Right: No dissection, occlusion or significant stenosis. Left: No dissection, occlusion or significant stenosis. Vertebral Artery: Right: No dissection, occlusion or significant stenosis. Left: No dissection, occlusion or significant stenosis. Lung Apices: Normal. Bones: Within normal limits for the patient's age. Soft Tissues: Normal. Thyroid gland: Unremarkable. CTA Brain W: Internal Carotid Arteries: There is atherosclerosis seen particularly in the cavernous carotid portio n of the internal carotid artery with narrowing no greater than 50 percent. Anterior Cerebral Arteries: Right: No aneurysm, occlusion or significant stenosis. Left: No aneurysm, occlusion or significant stenosis. Middle Cerebral Arteries: Right: No aneurysm, occlusion or significant stenosis. Left: No aneurysm, occlusion or significant stenosis. Posterior Cerebral Arteries: Right: No aneurysm, occlusion or significant stenosis. Left: No aneurysm, occlusion or significant stenosis. Vertebral Arteries: Right: No aneurysm, occlusion or significant stenosis. Left: No aneurysm, occlusion or significant stenosis. Basilar Artery: No aneurysm, occlusion or significant stenosis. IMPRESSION: 1. No large vessel occlusion or significant stenosis on the CT angiography of the head. 2. Atherosclerosis in the cavernous portion of the internal carotid arteries bilaterally with stenosi s no greater than 50 percent. 3. No acute intracranial process. 4. No occlusion or significant stenosis on the CT angiography of the neck. RADIATION DOSE DELIVERED: Total DLP DATA REPOSITORY: All CT scans at this facility are submitted to the National Radiology Data Registry (NRDR) Dose Index Registry (DIR) with the [employer] (ACR). RADIATION OPTIMIZATION: All CT scans at this facility use at least one of these dose optimization te chniques: automated exposure control; mA and/or kV adjustment per patient size (includes targeted exa ms where dose is matched to clinical indication); or iterative reconstruction.
--- NOTE | 2023-03-07 16:45 | DI.RAD_ITS ---
Exam(s) XR CHEST 2V PA LATERAL EXAM: XR CHEST 2V PA LATERAL CLINICAL HISTORY: weakness TECHNIQUE: 2D digital imaging was performed of the chest. Two images were obtained. PA and lateral views were obtained. COMPARISON: CR XR CHEST 2V PA LATERAL from 08/09/2018 FINDINGS: MEDIASTINUM: Normal. HEART: Stable mild cardiomegaly. PULMONARY VASCULATURE: Normal. LUNGS: There is scarring again seen in the left mid lung. No focal consolidating infiltrates are pre sent. The lungs appear hyperinflated suggesting underlying COPD. PLEURAL SPACE: No pleural effusion or pneumothorax. BONE:Within normal limits for the patient's age. OTHER FINDINGS:Normal. IMPRESSION: No acute pulmonary findings. DATA REPOSITORY: RADIATION DOSE DELIVERED:
[2023-03-07] MEDS: Omnipaque 350 MG/ML 100 ML BTL IJ (17:06)
[2023-03-07] MEDS: Normal Saline - Diluent 50 ML VIAL IJ (17:07)
[2023-03-07] MEDS: Normal Saline Flush 10 ML SYR IJ ×2 (17:09→22:42)
[2023-03-07 17:11] LABS: Source Nasal/Nares
[2023-03-07] MEDS: Lactated Ringers 1,000 ML 1000 ML IV (17:11)
[2023-03-07 17:13] LABS: Abs Immature Grans 0.01 10^3/uL (0.0-0.06); Absolute Basophil Count 0.05 10^3/uL (0.0-0.2); Absolute Eosinophil Count 0.34 10^3/uL (0.0-0.7); Absolute Lymphocyte Count 3.52 10^3/uL (1.2-3.4); Absolute Monocyte Count 0.94 10^3/uL (0.1-0.8); Absolute Neutrophil Count 3.25 10^3/uL (1.2-6.7); Basophils % 0.6; Eosinophils % 4.2; Immature Grans % 0.1; Lymphocytes % 43.4; MCH 30.2 pg (27.0-33.0); MCHC 32.5 % (32.0-36.0); MCV 93 fL (80-95); MPV 9.2 fL (8.0-11.0); Monocytes % 11.6; Neutrophils % 40.1; Platelet Count 276 10^3/uL (130-400); RBC 4.31 10^6/uL (3.93-5.22); RDW 14.6 % (11.7-14.6); RDW-SD 49.4 fL; WBC 8.11 10^3/uL (4.4-10.8)
[2023-03-07 17:32] LABS: ALT 22 U/L (14-59); AST 21 U/L (15-37); Albumin 3.6 g/dL (3.4-5.0); Alkaline Phosphatase 122 U/L (46-116); Anion Gap 12.2 mmol/L (3-11); BUN 12 mg/dL (7-18); Bilirubin, Total 1.2 mg/dL (0.2-1.0); CO2 26.8 mmol/L (21.0-32.0); CREATININE 1.1 mg/dL (0.55-1.02); Calcium 9.5 mg/dL (8.5-10.1); Chloride 103 mmol/L (98-107); Estimated GFR 51.75 (mL/min/1.73m2); Glucose 82 mg/dL (74-106); Lipase 38 U/L (16-77); Magnesium 1.9 mg/dL (1.8-2.4); Sodium 142 mmol/L (136-145); Total Protein 7.5 g/dL (6.4-8.2); Troponin I < 50 ng/L (<or=60)
[2023-03-07 17:40] LABS: TSH (W/Ref FT4) 11.96 uIU/mL (0.36-3.74)
[2023-03-07 17:43] LABS: ETHANOL BLOOD < 3.0 mg/dL (<10)
[2023-03-07 17:44] LABS: COVID-19 PCR Negative (Negative)
--- NOTE | 2023-03-07 17:50 | ED.GENADUL_ITS ---
Discharge Plan Disposition Patient Disposition: Admit to [facility] Condition: Serious Discharge Details Clinical Impression: AMS (altered mental status), Acute hypokalemia Primary Care Provider: Prerna Buchanan ED Provider: Carol Longo Home Meds and New Rx's Prescriptions: No Action levalbuterol tartrate [Xopenex HFA] 45 mcg/actuation HFA aerosol inhaler 1 puff IH Q6H PRN Hold Instructions: Pt Stopped/Never Started cholecalciferol (vitamin D3) 50 mcg (2,000 unit) capsule 50 mcg PO DAILY isosorbide mononitrate 60 mg tablet extended release 24 hr 60 mg PO DAILY Flovent Diskus 50 mcg/actuation blister with device 1 inh inhalation BID PRN gabapentin 100 mg capsule 100 mg PO BID Hold Instructions: Pt Stopped/Never Started aspirin 81 mg tablet,delayed release (DR/EC) 81 mg PO DAILY potassium chloride 20 mEq tablet extended release 20 meq PO DAILY levothyroxine 75 mcg tablet See Rx Instructions PO DAILY Qty: 25 0RF Rx Instructions: Take 75 mcg on Tuesdays and , take 50 mcg the rest of the days levothyroxine 50 mcg capsule 50 mcg PO .COMPLEX Qty: 90 3RF Rx Instructions: Take Mon, Wed, Wed, Sat, Sun and take 75 mcg and atorvastatin 20 mg tablet 20 mg PO QPM Qty: 90 3RF docusate sodium [Colace] 100 mg capsule 100 mg PO DAILY PRN Hold Instructions: Pt Stopped/Never Started fluticasone propionate [Flonase Allergy Relief] 50 mcg/actuation spray,suspension 1 spray intranasal DAILY PRN Rx Instructions: administer into each nostril cyanocobalamin (vitamin B-12) [Vitamin B-12] 1,000 mcg Tablet 1,000 mcg PO DAILY bumetanide 1 mg tablet 2 mg PO DAILY tumeric 450 mg See Rx Instructions .ROUTE .COMPLEX Rx Instructions: 450mg tumeric capsule, po, 1x daily Medical Decision Making 77-year-old female present presenting with alteration in mental status, an extended period of reported loss of consciousness 1520 minutes per At time of assessment, alert and oriented and appropriate. Glucose 93 Potassium of 3.0, QTc with documented prolongation with new right bundle from 2019 EKG, however corrected QTc is 444 Potassium was supplemented with 20 mEq of IV potassium and 30 mEq of p.o. potassium Patient also was given her atorvastatin at her request She is able to tolerate p.o. without difficulty, these were administered after CTA and CT interpretation and review by virtual radiology Remainder of diagnostic labs do not show evidence of acute abnormality, urinalysis without evidence of obvious infection At this time patient warrants admission for observation secondary to alteration in mental status, for an extended period of time, uncertain regarding etiology of event, no dysrhythmia noted in the emergency department, no chest pain, relatively asymptomatic and has been alert and oriented x4 throughout the entirety of her visit She does wish to be full CODE STATUS Case was discussed with Dr. Mi who is agreeable to admission Chest x-ray was reviewed and does not show evidence of acute abnormality per radiology interpretation my review HPI General Date/Time Provider Initiated Documentation: 03/07/23 17:37 . HPI Narrative: This 77-year-old female presents with past medical history of mild cognitive impairment, hypothyroidism hypercholesterolemia, asthma with report of alteration in mental status. reportedly was giving patient a bath, went out to make dinner and when he came back in noticed that she was shaking and foaming at the mouth . He states that he emptied the water and later back and she became unresponsive but continued to shake for approximately 10 minutes per . He said when EMS arrived she was slowly awakening but confused and quite weak. He states she has a history of alteration in mental status with spells but nothing like this before. No seizure history, denies any new medications. Denies any coagulopathy. States she was complaining of some neck pain this morning. Denies any alcohol consumption. Related Data Home Medications Medication Instructions Recorded Confirmed atorvastatin 20 mg tablet 20 mg PO QPM #90 tabs 04/04/18 03/07/23 levalbuterol tartrate 45 1 puff inhalation Q6H PRN 11/30/18 03/07/23 mcg/actuation aerosol inhaler (Xopenex HFA) cyanocobalamin (vitamin B-12) 1,000 mcg PO DAILY 02/02/19 03/07/23 1,000 mcg tablet (Vitamin B-12) aspirin 81 mg tablet,delayed 81 mg PO DAILY 11/14/19 03/07/23 release cholecalciferol (vitamin D3) 50 50 mcg PO DAILY 11/12/20 03/07/23 mcg (2,000 unit) capsule isosorbide mononitrate 60 mg 60 mg PO DAILY 11/12/20 03/07/23 tablet,extended release 24 hr fluticasone propionate 50 1 inh inhalation BID PRN 12/04/21 03/07/23 mcg/actuation blister powder for inhalation (Flovent Diskus) levothyroxine 50 mcg capsule 50 mcg PO .COMPLEX #90 caps 04/20/22 03/07/23 levothyroxine 75 mcg tablet See Rx Instructions PO DAILY #25 04/20/22 03/07/23 tab-caps potassium chloride 20 mEq 20 meq PO DAILY 04/20/22 03/07/23 tablet,extended release bumetanide 1 mg tablet 2 mg PO DAILY 05/25/22 03/07/23 docusate sodium 100 mg capsule 100 mg PO DAILY PRN 05/25/22 03/07/23 (Colace) fluticasone propionate 50 1 spray intranasal DAILY PRN 05/25/22 03/07/23 mcg/actuation nasal spray,suspension (Flonase Allergy Relief) gabapentin 100 mg capsule 100 mg PO BID 09/22/22 03/07/23 tumeric See Rx Instructions .Route .COMPLEX 03/07/23 03/07/23 Previous Rx's Medication Instructions Recorded atorvastatin 20 mg tablet 20 mg PO QPM #90 tabs 04/04/18 levothyroxine 50 mcg capsule 50 mcg PO .COMPLEX #90 caps 04/20/22 levothyroxine 75 mcg tablet See Rx Instructions PO DAILY #25 04/20/22 tab-caps Allergies Allergy/AdvReac Type Severity Reaction Status Date / Time alendronate sodium AdvReac Mild Nausea Unverified 09/22/22 08:00 [From Fosamax] torsemide AdvReac Verified 09/22/22 08:00 General Stated Complaint: AMS/LOC OZZY: 3 PFSH All Active Problems (Updated 03/07/23 @ 20:21 by PRATIK Renae) Acute hypokalemia (Acute) AMS (altered mental status) (Acute) Essential tremor (Acute) Spells of decreased attentiveness (Acute) Lethargy (Acute) Peripheral neuropathy (Acute) Falls (Acute) Mild cognitive impairment (Acute) Left-sided neglect (Acute) 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 Migraine with vertigo (Acute 04/06/15) Medical History Adjustment disorder with mixed anxiety and depressed mood Anemia, iron deficiency Anxiety Atopic dermatitis B12 deficiency Benign positional vertigo CAD (coronary artery disease) Carpal tunnel syndrome Cataract Chest pain Constipation COPD (chronic obstructive pulmonary disease) Cough Decreased hearing Dyspnea on exertion Fatigue Frequent falls Heart failure Hypernatremia Hypothyroid Intermittent asthma Loss of balance Mammogram abnormal Memory impairment Mitral valve prolapse Osteopenia Osteoporosis Pre-diabetes Preventative health care Restrictive lung disease Vestibular migraine Vitamin D deficiency Surgical History History of cardiac catheterization without stenting History of colonoscopy Hx of cataract surgery Ligation of fallopian tube Tonsillectomy and adenoidectomy Family History Other Cancer Heart disease Social History Smoking/Tobacco Use Status: Never Smoking risk assessment performed?: Yes Alcohol Intake: former Drug use: Never Substance use type: does not use Household members: spouse Housing: house Number of Children: 2 Pets and animals: Yes Pets and animals: dog(s) Current gender identity: female What is your relationship status?: Panel score (0-1 are the most socially isolated patients): 1 Seatbelt use: always Do you feel safe at home: Yes Do you feel safe in your relationship?: Yes Course Vital Signs Vital signs: Vital Signs Temperature 37.0 C 03/07/23 16:40 Pulse 95 H 03/07/23 16:40 Respiratory Rate 20 03/07/23 16:40 Blood Pressure 110/74 03/07/23 16:40 Pulse Oximetry 93 03/07/23 16:40 Temperature 37.0 C 03/07/23 16:40 Temperature Source Temporal Artery Scan 03/07/23 16:40 Pulse 89 03/07/23 16:46 Pulse 85 03/07/23 16:50 Respiratory Rate 23 03/07/23 16:50 Respiratory Effort Normal 03/07/23 16:50 Respiratory Depth Normal 03/07/23 16:50 Blood Pressure 110/74 03/07/23 16:46 Blood Pressure Mean 83 03/07/23 16:46 Blood Pressure Position Sitting 03/07/23 16:40 Pulse Oximetry 93 03/07/23 16:40 Oxygen Delivery Method Room Air 03/07/23 16:40 Oxygen Flow Rate 0 03/07/23 16:40 Lab/Test Results Lab/Test Results: Laboratory Tests Range/Units 03/07/23 03/07/23 17:00 17:05 WBC (4.4-10.8) 10^3/uL 8.11 RBC (3.93-5.22) 10^6/uL 4.31 Hgb (11.2-15.7) g/dL 13.0 Hct (36.0-46.0) % 40.0 MCV (80-95) fL 93 MCH (27.0-33.0) pg 30.2 MCHC (32.0-36.0) % 32.5 RDW (11.7-14.6) % 14.6 Plt Count (130-400) 10^3/uL 276 MPV (8.0-11.0) fL 9.2 Immature Gran % 0.1 Neutrophils % 40.1 Lymphocytes % 43.4 Monocytes % 11.6 Eosinophils % 4.2 Basophils % 0.6 Nucleated RBC % (0.0-0.3) % 0.0 Absolute Neutrophils (1.2-6.7) 10^3/uL 3.25 Absolute Lymphocytes (1.2-3.4) 10^3/uL 3.52 H Absolute Monocytes (0.1-0.8) 10^3/uL 0.94 H Absolute Eosinophils (0.0-0.7) 10^3/uL 0.34 Absolute Basophils (0.0-0.2) 10^3/uL 0.05 Sodium (136-145) mmol/L 142 Potassium (3.5-5.1) mmol/L 3.0 L Chloride (98-107) mmol/L 103 Carbon Dioxide (21.0-32.0) mmol/L 26.8 Anion Gap (3-11) mmol/L 12.2 H BUN (7-18) mg/dL 12 Creatinine (0.55-1.02) mg/dL 1.1 H Est GFR (CKD-EPI 2020) (mL/min/1.73m2) 51.75 Glucose (74-106) mg/dL 82 Calcium (8.5-10.1) mg/dL 9.5 Magnesium (1.8-2.4) mg/dL 1.9 Total Bilirubin (0.2-1.0) mg/dL 1.2 H AST (15-37) U/L 21 ALT (14-59) U/L 22 Alkaline Phosphatase (46-116) U/L 122 H Troponin I (<or=60) ng/L < 50 Total Protein (6.4-8.2) g/dL 7.5 Albumin (3.4-5.0) g/dL 3.6 Lipase (16-77) U/L 38 TSH (0.36-3.74) uIU/mL 11.96 H Ethyl Alcohol (<10) mg/dL < 3.0 COVID-19 Source Nasal/Nares SARS-CoV-2 (PCR) (Negative) Negative
[2023-03-07 17:58] LABS: FREE T4 0.89 ng/dL (0.76-1.46)
[2023-03-07] MEDS: POTASSIUM CHLORIDE 20 MEQ/100 ML BAG 50 MEQ IVPB (17:59)
--- NOTE | 2023-03-07 18:01 | DI.VRAD_ITS ---
PROCEDURE INFORMATION: Exam: XR Chest Exam date and time: 03/07/2023 5:39 PM Age: 77 years old Clinical indication: Other: Weakness TECHNIQUE: Imaging protocol: Radiologic exam of the chest. Views: 2 views. COMPARISON: CR XR CHEST 2V PA LATERAL 08/09/2018 10:07 AM FINDINGS: Lungs: Hyperinflation consistent with emphysema/COPD. No acute lung infiltrates or edema. Left mid lung field opacification stable since 2019 consistent with a scar. Pleural spaces: No pleural effusion. Heart/Mediastinum: [id number] cardiac enlargement. Bones/joints: Degenerative thoracic spine features and dextroscoliosis. IMPRESSION: 1. Hyperinflation which could reflect underlying emphysema or COPD. 2. Left mid lung field stable linear opacification consistent with a scar. No change since 2019. 3. No acute pleural effusion. 4. [id number] cardiac enlargement. 5. Degenerative thoracic spine. Dictated and Authenticated by: Yousuf Ferrara MD. Ordering:REJI Medina MD
--- NOTE | 2023-03-07 18:18 | DI.VRAD_ITS ---
PROCEDURE INFORMATION: Exam: CTA Head With Contrast, Arteriography Exam date and time: 03/07/2023 5:09 PM Age: 77 years old Clinical indication: Other: AMS TECHNIQUE: Imaging protocol: Computed tomographic angiography of the head with contrast. Exam focused on the arteries. 3D rendering (Not supervised by radiologist): MIP and/or 3D reconstructed images were created by the technologist. Radiation optimization: All CT scans at this facility use at least one of these dose optimization techniques: automated exposure control; mA and/or kV adjustment per patient size (includes targeted exams where dose is matched to clinical indication); or iterative reconstruction. Contrast material: OMNI 350; Contrast volume: 85 ml; Contrast route: IV; COMPARISON: CT HEAD WO 11/27/2021 1:19 PM FINDINGS: ANTERIOR CIRCULATION: Right internal carotid artery: Right cavernous carotid artery with atherosclerotic calcium and moderate stenosis at 50% diameter. Coronal series 22: Image 66. Axial series 20: Image 109. Right middle cerebral artery: No occlusion or significant stenosis. No aneurysm. Right anterior cerebral artery: No occlusion or significant stenosis. No aneurysm. Left internal carotid artery: Left cavernous carotid artery with atherosclerotic calcium and moderate stenosis at 50% diameter. See series 2: Image 111. Left middle cerebral artery: No occlusion or significant stenosis. No aneurysm. Left anterior cerebral artery: No occlusion or significant stenosis. No aneurysm. POSTERIOR CIRCULATION: Right vertebral artery: No occlusion or significant stenosis. No aneurysm. Left vertebral artery: No occlusion or significant stenosis. No aneurysm. Basilar artery: No occlusion or significant stenosis. No aneurysm. Right posterior cerebral artery: No occlusion or significant stenosis. No aneurysm. Left posterior cerebral artery: No occlusion or significant stenosis. No aneurysm. Brain: No definite mass, mass effect, or midline shift. Cerebral ventricles: No ventriculomegaly. Bones/joints: Unremarkable. No acute fracture. Soft tissues: Unremarkable. IMPRESSION: 1. Right cavernous carotid artery atherosclerotic calcium with 50% diameter moderate stenosis. 2. Left cavernous carotid artery with atherosclerotic calcium and 50% diameter moderate stenosis. 3. Cerebral arteries without occlusion or critical stenosis. 4. No aneurysm or vascular malformation evident. 5. Venous sinuses appear patent. PROCEDURE INFORMATION: Exam: CTA Neck With Contrast Exam date and time: 03/07/2023 5:09 PM Age: 77 years old Clinical indication: Other: AMS TECHNIQUE: Imaging protocol: Computed tomographic angiography of the neck with contrast. Exam focused on the cervical segments of the vasculature. 3D rendering (Not supervised by radiologist): MIP and/or 3D reconstructed images were created by the technologist. Contrast material: OMNI 350; Contrast volume: 85 ml; Contrast route: IV; COMPARISON: CT Private^PE (Adult) 01/14/2018 6:05 PM FINDINGS: Right common carotid artery: Right common carotid artery is widely patent from origin to carotid bulb. Minor atherosclerotic calcium at the carotid bulb without stenosis. Right internal carotid artery: Right internal carotid artery non osteal eccentric atherosclerotic calcium with mild stenosis at 20% diameter. Vessel is otherwise patent through the skull base foramen. Right external carotid artery: Right external carotid artery is patent. Left common carotid artery: Left common carotid artery is widely patent. Left carotid bulb with minor atherosclerotic calcium. No stenotic changes. Left internal carotid artery: Left internal carotid artery mild atherosclerotic calcium at the origin. No significant stenosis. Left external carotid artery: Left external carotid artery is patent. Right vertebral artery: Right vertebral artery is patent from origin through foramen magnum. Non dominant. Left vertebral artery: Left vertebral artery is mildly dominant and widely patent. Aorta: Aortic arch is normal in course and caliber. Soft tissues: Normal. No significant soft tissue swelling. Bones/joints: Degenerative cervical spine. Lungs: Lung apices without acute consolidation. Mild increased interstitial markings which are nonspecific. This could represent chronic interstitial disease. Can not exclude mild interstitial edema. IMPRESSION: 1. No cervical carotid or vertebral artery critical stenosis, occlusion, or dissection. 2. Degenerative cervical spine disease. REFERENCES: NASCET CRITERIA. The degree of stenosis in the cervical segment of the internal carotid artery is based on NASCET criteria. Normal is no stenosis. Mild is less than 50% stenosis. Moderate is 50-69% stenosis. Severe is 70% to 99% stenosis. Total occlusion is no detectable patent lumen. Dictated and Authenticated by: Yousuf Ferrara MD. Ordering:REJI Medina MD
[2023-03-07 19:40] LABS: Bilirubin Negative (Negative); Blood Trace-intact (Negative); Clarity Clear (Clear); Glucose Negative (Negative); Ketones Negative (Negative); Leukocyte Esterase Negative (Negative); Nitrite Positive (Negative)
[2023-03-07 19:49] LABS: Troponin I < 50 ng/L (<or=60)
[2023-03-07 19:59] LABS: Bacteria Few HPF (Negative); C & S Indicated? No/Sq. Contamination; Casts 3-5 Hyaline LPF (Negative); Crystals Moderate Uric Acid HPF (Negative); Epithelial Cells Moderate HPF (Negative); Mucus Negative (Negative); RBC 0-2 HPF (0-2); WBC 0-2 HPF (0-5)
--- NOTE | 2023-03-07 22:19 | W.PM.HP.N ---
Date of service: 03/07/23 Time of Service: 22:19 Assessment and Plan Assessment and plan (1) AMS (altered mental status): Status: Acute Assessment and plan: Episode of prolonged unresponsiveness consistent with syncope vs. neurologic event in setting of recently progressively more frequent but less severe spells over the past year. She does have significant cardiac risk, though initial EKG and troponins do not suggest ischemia. Monitor on telemetry, get repeat echocardiogram (last in 2020 showing diastolic dysfunction, new symptoms since) The frothing and prolonged unresponsivenss does raise concern for possible seizure, though previous events felt not c/w seizure by neurology and EEG in May did not suggest this. I will ask for neurology input as I am not sure it it worth repeating JAY or EEG. (2) Acute hypokalemia: Status: Acute Assessment and plan: If these events are cardiac arrythmias, this may be relavent to his symtpoms. This has been a chronic issue a/w bumetanide. Per last cardiology visit we could add spironolactone, but I would be concerned that the blood pressure would get too low and cause more lightheadedness. I think worth trying to cut bumetanide dose from 2mg to 1mg and adding spironolactone, being on the monitor would male this transition safer, try this and monitor. (3) Mild cognitive impairment: Status: Acute Assessment and plan: Her story suggests there may be some fluctuation in her mental status as she progressed a lot from 2021 to August 2022. Asking neurology input as they not her well. (4) CAD (coronary artery disease): Assessment and plan: continue ASA and atorvastatin. Getting echocardiogram as above. (5) COPD (chronic obstructive pulmonary disease): Assessment and plan: Not active now, continue chronic inhalers. (6) DVT prophylaxis: Status: Acute Assessment and plan: LMWH History of Present Illness History of Present Illness Chief Complaint: loss of conciousness Narrative: 77 yo female with a history of CAD, HFpEF, followed by neurology for progressive cognitive impairment and intermittent inattentive spells, who presented today after she was found unresponsive and frothing at the mouth in her tub and remained unresponsive for 20 minutes after her found her per report. She was feeling normal and taking a bath with the help of her . He left to prepare dinner and when he returned a few minutes later she was shaking and foaming at the mouth. He drained the water and during this time she became unresponsive completely for 15-20 minutes. Per EMS when they arrived she was generally weak and was confused, but she was alert and oriented by the time she got to the ED. She does not remember the episode, and never had headache, chest pain, or palpitations associated with the episode. She did not have tongue biting or incontinence. Cassia has had spells of unresponsiveness that she does not remember for over a year, and they are happening more frequently in recent months, up to twice a week. She did have an EEG and MRI with neurology over the time she has had spells. During the same time her cognitive impairment has worsened. She denies any change in medication other than curcumin supplement started in August. Review of Systems Constitutional Constitutional: Denies anorexia, Denies chills, Denies fever(s), Denies headache(s) and Reports lethargy Eyes Eyes: Denies change in vision and Denies irritation ENT Ears, Nose, Mouth, and Throat: Denies vertigo, Denies dizziness, Denies headache(s), Denies nasal congestion, Denies nasal discharge and Denies sore throat Cardiovascular Cardiovascular: Denies chest pain, Reports chest pain with activity (occaisional, not today), Reports lightheadedness, Denies palpitations, Denies dyspnea and Denies orthopnea Respiratory Respiratory: Denies cough, Denies excessive phlegm production, Denies dyspnea and Denies wheezing Gastrointestinal Gastrointestinal: Denies abdominal pain, Denies melena, Denies hematochezia, Denies constipation, Denies heartburn, Denies diarrhea and Denies vomiting Genitourinary Genitourinary: Denies hematuria, Denies dysuria and Denies urinary incontinence Musculoskeletal Comments: no new joint pain Integumentary/Breasts Skin/Breast: Denies rash and Denies skin ulcer Neurologic Neurologic: Denies abnormal speech, Denies vertigo, Denies dizziness, Denies headache(s), Denies localized weakness, Reports memory loss and Denies sensory deficit Psychiatric Psychiatric: Reports memory loss and Denies mood swings Endocrine Endocrine: Denies palpitations Hematologic/Lymphatic Hematologic/Lymphatic: Denies easy bleeding Allergic/Immunologic Allergic/Immunologic: Denies wheezing 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 Migraine with vertigo (Acute 08/06/14) Medical History Cataract Intermittent asthma Constipation Vitamin D deficiency Hypernatremia Adjustment disorder with mixed anxiety and depressed mood Loss of balance Mammogram abnormal Preventative health care Mitral valve prolapse B12 deficiency Anemia, iron deficiency Atopic dermatitis Fatigue Heart failure Osteoporosis Decreased hearing Dyspnea on exertion Cough Restrictive lung disease Frequent falls Memory impairment Anxiety Carpal tunnel syndrome Pre-diabetes COPD (chronic obstructive pulmonary disease) CAD (coronary artery disease) Chest pain Osteopenia Hypothyroid Vestibular migraine Benign positional vertigo Surgical History Hx of cataract surgery History of cardiac catheterization without stenting History of colonoscopy Ligation of fallopian tube Tonsillectomy and adenoidectomy Family History Other Cancer Heart disease Social History (Updated 03/07/23 @ 22:45 by Jasper Chappell) Smoking/Tobacco Use Status: Never Smoking risk assessment performed?: Yes Alcohol Intake: former Drug use: Never Substance use type: does not use Household members: spouse Housing: house Number of Children: 2 Pets and animals: Yes Pets and animals: dog(s) Current gender identity: female What is your relationship status?: Panel score (0-1 are the most socially isolated patients): 1 Seatbelt use: always Do you feel safe at home: Yes Do you feel safe in your relationship?: Yes Additional Social history: Lives with Dio in [facility] in [facility]. Retired teacher. Meds Allergies and Home Medications Allergies Allergy/AdvReac Type Severity Reaction Status Date / Time alendronate sodium AdvReac Mild Nausea Unverified 09/22/22 08:00 [From Fosamax] torsemide AdvReac Verified 09/22/22 08:00 Home Medications Medication Instructions Recorded Confirmed Type atorvastatin 20 mg tablet 20 mg PO QPM #90 tabs 04/04/18 03/07/23 Rx levalbuterol tartrate 45 1 puff inhalation Q6H PRN 11/30/18 03/07/23 History mcg/actuation aerosol inhaler (Xopenex HFA) cyanocobalamin (vitamin B-12) 1,000 mcg PO DAILY 02/02/19 03/07/23 History 1,000 mcg tablet (Vitamin B-12) aspirin 81 mg tablet,delayed 81 mg PO DAILY 11/14/19 03/07/23 History release cholecalciferol (vitamin D3) 50 50 mcg PO DAILY 11/12/20 03/07/23 History mcg (2,000 unit) capsule isosorbide mononitrate 60 mg 60 mg PO DAILY 11/12/20 03/07/23 History tablet,extended release 24 hr fluticasone propionate 50 1 inh inhalation BID PRN 12/04/21 03/07/23 History mcg/actuation blister powder for inhalation (Flovent Diskus) levothyroxine 50 mcg capsule 50 mcg PO .COMPLEX #90 caps 04/20/22 03/07/23 Rx levothyroxine 75 mcg tablet See Rx Instructions PO DAILY #25 04/20/22 03/07/23 Rx tab-caps potassium chloride 20 mEq 20 meq PO DAILY 04/20/22 03/07/23 History tablet,extended release bumetanide 1 mg tablet 2 mg PO DAILY 05/25/22 03/07/23 History docusate sodium 100 mg capsule 100 mg PO DAILY PRN 05/25/22 03/07/23 History (Colace) fluticasone propionate 50 1 spray intranasal DAILY PRN 05/25/22 03/07/23 History mcg/actuation nasal spray,suspension (Flonase Allergy Relief) gabapentin 100 mg capsule 100 mg PO BID 09/22/22 03/07/23 History tumeric See Rx Instructions .Route .COMPLEX 03/07/23 03/07/23 History Exam Narrative Exam Narrative: GEN: Alert and oriented x 3, pleasant and cooperative, gives linear history but does not remember the episode that brought her here. No acute distress at rest. HEENT: Head atraumatic. Conjunctiva clear, no icterus. PEERL, EOMI. no rhinorrhea. MMM, OP benign, nl tongue. Neck is supple with no masses or lymphadenopathy LUNGS: CTAB with normal effort CV: RRR with no murmurs, gallops, or rubs. ABD: +BS, soft, NT/ND EXT: no cyanosis, clubbing. trace wanda ankle edema. Legs not tender MSK: No joint redness or swelling NEURO: CN 2-12 grossly intact. Normal sensation to light touch, normal movement of 4 extremities. Gait is steady. Normal speech and coordination. Slight tremor of chin SKIN: No rashes or open wounds. PSYCH: normal mood and affect Results Imaging Chest x-ray: report reviewed (No acute pulmonary findings. Hyperinflation/COPD) EKG: report reviewed (Sinus rhythm.. Right bundle branch block...QRSd>120, terminal axis(90,270) new compared to 2019) Imaging Studies: CTA head/neck: 1. No large vessel occlusion or significant stenosis on the CT angiography of the head. 2. Atherosclerosis in the cavernous portion of the internal carotid arteries bilaterally with stenosis no greater than 50 percent. 3. No acute intracranial process. 4. No occlusion or significant stenosis on the CT angiography of the neck. Labs 03/07/23 17:00 03/07/23 17:00 Labs: Laboratory Results - last 24 hr 03/07/23 03/07/23 03/07/23 17:00 17:05 19:26 WBC 8.11 RBC 4.31 Hgb 13.0 Hct 40.0 MCV 93 MCH 30.2 MCHC 32.5 RDW 14.6 Plt Count 276 MPV 9.2 Immature Gran % 0.1 Neutrophils % 40.1 Lymphocytes % 43.4 Monocytes % 11.6 Eosinophils % 4.2 Basophils % 0.6 Nucleated RBC % 0.0 Absolute Neutrophils 3.25 Absolute Lymphocytes 3.52 H Absolute Monocytes 0.94 H Absolute Eosinophils 0.34 Absolute Basophils 0.05 Sodium 142 Potassium 3.0 L Chloride 103 Carbon Dioxide 26.8 Anion Gap 12.2 H BUN 12 Creatinine 1.1 H Est GFR (CKD-EPI 2020) 51.75 Glucose 82 Calcium 9.5 Magnesium 1.9 Total Bilirubin 1.2 H AST 21 ALT 22 Alkaline Phosphatase 122 H Troponin I < 50 < 50 Total Protein 7.5 Albumin 3.6 Lipase 38 TSH 11.96 H Free T4 0.89 Urine Color Yellow Urine Clarity Clear Urine pH 6.0 Ur Specific [place] 1.010 Urine Protein 30 H Urine Ketones Negative Urine Blood Trace-intact H Urine Nitrite Positive H Urine Bilirubin Negative Urine Urobilinogen 1.0 H Ur Leukocyte Esterase Negative Urine RBC 0-2 Urine WBC 0-2 Ur Epithelial Cells Moderate Urine Crystals Moderate Uric Acid Urine Bacteria Few Urine Casts 3-5 Hyaline Urine Mucus Negative Ur Culture Indicated? No/Sq. Contamination Urine Glucose Negative Ethyl Alcohol < 3.0 COVID-19 Source Nasal/Nares SARS-CoV-2 (PCR) Negative Last Vital Signs Temp 36.9 C 03/07/23 21:30 Pulse 68 03/07/23 21:30 Resp 16 03/07/23 21:30 BP 133/76 03/07/23 21:30 Pulse Ox 96 03/07/23 21:30 Time Spent Time spent with Patient: 55-74 minutes Time was spent: preparing to see the patient(eg.review tests), obtaining and/or reviewing separately otained hiistory, ordering medications,tests, procedures, referring, communicating with other health director career services, indepentently interpreting results and counseling the patient
[2023-03-07] MEDS: Enoxaparin 40 MG/0.4 ML SYR SC (22:42)
[2023-03-08 01:08] VITALS: BP 108/54; PULSE 73; RESP 16; TEMP 36; O2SAT 95
[2023-03-08 05:24] VITALS: BP 121/69; PULSE 79; RESP 16; TEMP 36.6; O2SAT 95
[2023-03-08] MEDS: Levothyroxine 50 MCG TAB PO (05:27)
--- NOTE | 2023-03-08 06:00 | DI.US_ITS ---
APPROVED REPORT EXAM: Comprehensive 2D, Doppler, and color-flow Echocardiogram Patient Location: Out-Patient Digital Watch Assembler: Parker Grover RDCS (AE) Indications: history of CAD, HFpEF, SOB, syncope Conclusion Normal left ventricular wall thickness and chamber size. Ejection fraction is 60 to 65%. Wall motio n is normal Normal right ventricular size and systolic function Both atria are normal in size There are no structural valvular abnormalities There is mild mitral regurgitation Wall motion Left Ventricle The left ventricle is normal size. The left ventricular systolic function is normal. The left ventric ular ejection fraction is within the normal range. There is normal left ventricular wall thickness. T here is normal LV segmental wall motion. There is no ventricular septal defect visualized. LVEF is 62 %. Right Ventricle The right ventricle is normal size. The right ventricular systolic function is normal. Unable to asse ss PA pressure. Atria The left atrium size is normal. The right atrium size is normal. The interatrial septum is intact wit h no evidence for an atrial septal defect. Aortic Valve The aortic valve is normal in structure. Aortic valve is trileaflet. There is no aortic valvular sten osis. No aortic regurgitation is present. Mitral Valve The mitral valve is normal in structure. No evidence of mitral valve stenosis. Mild mitral regurgitat ion. Tricuspid Valve The tricuspid valve is normal in structure. There is no tricuspid valve stenosis. Trace tricuspid reg urgitation. Pulmonic Valve The pulmonary valve is normal in structure. There is no pulmonic valvular stenosis. There is no pulmo annette valvular regurgitation. Great Vessels The aortic root is normal in size. The ascending aorta is normal in size. Aortic arch is not well vis ualized. IVC is normal in size and collapses >50% with inspiration. Pericardium There is no pericardial effusion. 2D Dimensions IVSD d PLAX 0.81 cm F: 0.6-1.0 Ao Root d 2.72 cm F: 2.7 - 3.3 LVPW d PLAX 0.90 cm F: 0.6 - 1.0 Ao Asc Diam d 3.14 cm F: 2.3 - 3.1 LVID d PLAX 4.81 cm F: 3.8 - 5.2 LVDs 3.19 cm F: 2.2 - 3.5 LV EF Teichholz 62.3 % FS 33.59 % LV EDV (Teich) 107.9 mL LV ESV (Teich) 40.7 mL Stroke Vol Index (Teich) 35.17 M-Mode TAPSE 2.44 cm (M/F) >1.7 Auto EF LV EDV A4C 90.8 mL LV EDV A2C 93.2 mL LV EDV BP 92.6 mL LV ESV A4C 35.0 mL LV ESV A2C 35.7 mL LV ESV BP 35.4 mL LVEF(%) A4C 61.4 % LVEF(%) A2C 61.7 % LVEF(%) BP 61.8 % LV SV A4C 55.7 ml LV SV A2C 57.5 ml LV SV BP 57.3 ml LV CO A4C 4.2 L/min LV CO A2C 4.0 L/min LV CO BP 4.1 L/min HR A4C 75.32 BPM HR A2C 69.77 BPM LV EDV Index (BP) LA Volume LA Length A4C 4.2 cm LA Length A2C LA Area A4C s 11.06 cm2 LA Area A2C s LA Vol A4C A-L 24.76 mL LA Vol A2C A-L LA Vol Biplane A-L LA Vol A4C MOD 24.0 mL LA Vol A2C MOD LA Vol BP MOD RA Volume RA Area A4C 8.6 cm2 RA ESV A4C (A-L) 15.4mL RA Vol/BSA A4C A-L RA Length A4C 4.1 cm RA ESV A4C (MOD) 15.1mL LV Diastology MV E' medial 0.065 (>0.07 m/s) MV E Vmax 0.46 (0.4-1.3 m/s) MV E/E' MED 7.00 (<14) MV A Vmax 0.65 (0.4-1.3 m/s) MV E' lateral 0.087 (>0.1 m/s) E/A Ratio 0.7 MV E/E' LAT 5.22 (<14) MV E' Average 0.076 m/s MV E/E'(average) 5.98 Aortic Valve AoV Vmax 1.56 m/s LVOT Vmax 1.16 m/s AoV Peak Grad 9.7 mmHg LVOT Peak Grad 5.4 mmHg AoV Area (Vmax) 2.31 cm2 LVOT VTI 0.229 m AoV VTI 0.323 m LVOT Mean Grad 3.0 mmHg AoV Mean Boris. 1.07 m/s LVOT SV 71.15 mL AoV Mean Grad 5.2 mmHg LVOT Diam s 1.95 cm AoV Area (VTI) 2.20 cm2 Velocity Ratio 0.74 Mitral Valve MV DT 164 (160-240 msec) Pulmonary Valve PV Vmax 1.07 (0.5-1.5 m/s) RVOT Vmax 0.89 m/s PV Peak Grad 4.6 mmHg RVOT Peak Gr. 3.2 mmHg PV Mean Boris 0.76 m/s RVOT VTI 0.202 m PV Mean Grad 2.6 mmHg RVOT Mean Gr. 1.4 mmHg
[2023-03-08 07:00] LABS: Anion Gap 8.4 mmol/L (3-11); BUN 10 mg/dL (7-18); CO2 26.6 mmol/L (21.0-32.0); Calcium 9.2 mg/dL (8.5-10.1); Chloride 106 mmol/L (98-107); Estimated GFR 58.02 (mL/min/1.73m2); Glucose 109 mg/dL (74-106); Potassium 3.1 mmol/L (3.5-5.1); Sodium 141 mmol/L (136-145)
[2023-03-08 07:30] VITALS: BP 127/65; PULSE 69; RESP 17; TEMP 36.4; O2SAT 96
[2023-03-08] MEDS: Cholecalciferol (Vitamin D3) 1,000 UNIT TAB 2000 UNITS PO (08:13)
[2023-03-08] MEDS: Cyanocobalamin 100 MCG TABLET 1000 MCG PO (08:13)
[2023-03-08] MEDS: Aspirin E.C. 81 MG TABEC PO (08:14)
[2023-03-08] MEDS: Normal Saline Flush 10 ML SYR IJ (08:14)
[2023-03-08] MEDS: Bumetanide 1 MG TAB 2 MG PO (08:14)
[2023-03-08] MEDS: Potassium Chloride 20 MEQ TABCR PO ×2 (08:14→08:43)
[2023-03-08] MEDS: Isosorbide Mononitrate 60 MG TABCR PO (08:42)
--- NOTE | 2023-03-08 09:37 | PDOC.CMIN ---
Date of service: 03/08/23 Time of Service: 09:37 Care Management Initial Assmt Initial Assessment REASON FOR HOSPITALIZATION:: AMS r/o seizure PREVIOUS FUNCTIONAL STATUS/SOCIAL/FAMILY SUPPORTS:: Anika lives in a mobile home in [place] with her Dio. They have 2 children, both daughters. One lives in [place]; they see her often and she is very supportive. The other daughter lives in [place] and, per Anika, they have never been very close. 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 She is independent at baseline and does not receive any community services. CURRENT FUNCTIONAL STATUS:: Anika was sitting up on the side of her bed visiting with her when CM met with her. She was pleasant in manner and agreeable to conversation. Anika deferred to Dio to answer some of the questions. She has some mild dementia and had difficulty with some of the topics of discussion. Anika was found unresponsive in her bathtub by her and it was very traumatic for him. He informed CM that he thought she had . It appears that Dio provides a lot of care and support to Anika and their interactions seem to be very close and loving. ADVANCE DIRECTIVES:: none Has patient been provided with info about the portal/API?: Yes Did the patient sign up for the portal?: No CODE STATUS:: Full Code INSURANCE COVERAGE / FINANCIAL ISSUES:: Medicare BC/BS [place] CURRENT HOME/COMMUNITY SERVICES/EQUIPMENT:: none PRIMARY CARE PHYSICIAN:: Prerna Buchanan POTENTIAL DISCHARGE NEEDS:: Follow up with PCP and plan of care PATIENT/FAMILY EDUCATION NEEDS:: review of discharge instructions, limitations, activity, follow up plan, discuss Ask Me Three. TRANSPORTATION:: via private vehicle with husbands PLAN:: Anticipate Anika will be discharged home with no new services when medically cleared. She will follow up with her community providers and plan of care and transport with her . CM will continue to support Anika and her discharge planning needs. 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 Migraine with vertigo (Acute 08/06/14) Medical History Cataract Intermittent asthma Constipation Vitamin D deficiency Hypernatremia Adjustment disorder with mixed anxiety and depressed mood Loss of balance Mammogram abnormal Preventative health care Mitral valve prolapse B12 deficiency Anemia, iron deficiency Atopic dermatitis Fatigue Heart failure Osteoporosis Decreased hearing Dyspnea on exertion Cough Restrictive lung disease Frequent falls Memory impairment Anxiety Carpal tunnel syndrome Pre-diabetes COPD (chronic obstructive pulmonary disease) CAD (coronary artery disease) Chest pain Osteopenia Hypothyroid Vestibular migraine Benign positional vertigo Surgical History Hx of cataract surgery History of cardiac catheterization without stenting History of colonoscopy Ligation of fallopian tube Tonsillectomy and adenoidectomy Family History Other Cancer Heart disease Social History (Updated 03/07/23 @ 22:45 by Jasper Chappell) Smoking/Tobacco Use Status: Never Smoking risk assessment performed?: Yes Alcohol Intake: former Drug use: Never Substance use type: does not use Household members: spouse Housing: house Number of Children: 2 Pets and animals: Yes Pets and animals: dog(s) Current gender identity: female What is your relationship status?: Panel score (0-1 are the most socially isolated patients): 1 Seatbelt use: always Do you feel safe at home: Yes Do you feel safe in your relationship?: Yes Additional Social history: Lives with Dio in [facility] in [facility]. Retired teacher.
--- NOTE | 2023-03-08 10:00 | RT.EKG_ITS ---
APPROVED REPORT Exam: Resting ECG Reason for Exam: ?syncope Patient Location: I HR:67 bpm ECG Measurements Heart Rate 67 AXIS TX 206 P 15 QRSd 154 QRS 64 QT 465 T 0 QTc 491 Conclusion Sinus rhythm...normal P axis, V-rate 50- 99 Right bundle branch block...QRSd>120, terminal axis(90,270)
[2023-03-08 12:23] VITALS: BP 108/62; PULSE 87; RESP 17; TEMP 37; O2SAT 94
[2023-03-08] MEDS: levETIRAcetam 250 MG TAB 500 MG PO ×2 (13:27→19:42)
[2023-03-08 15:09] VITALS: BP 116/66; PULSE 81; RESP 16; TEMP 36.9; O2SAT 95
--- NOTE | 2023-03-08 15:12 | NCONE_ITS ---
Date of service: 03/08/23 Time of Service: 15:12 Assessment and Plan Assessment and plan (1) Seizure: Status: Acute (2) Mild cognitive impairment: Status: Chronic Assessment and plan: #1. Seizure. Ms. Tong is admitted after apparent first seizure. Given history of some type of neuro-cognitive process, I recommend starting a seizure medication. Start levetiracetam 1000mg now and 500mg BID. EEG if available. Discussed seizure precautions and seizure safety with . Discussed importance of taking medication and what to do if she has another seizure. #2. Neuro-cognitive disorder. Very unusual picture. Dio and Anika present stories consistent with advanced dementia and sundowning/delirium, however Anika is quite nearly cognitively intact and able to recall this information. Is this a behavioral variant FTD? Is there a psych component occurring? An embellishment/Munchausen component? It does not seem like a sleep disorder as events happen during the day, but may want to consider a sleep study outpatient. Will continue to monitor as an outpatient. She should follow-up in neurology in 4-6 weeks. History of Present Illness History of Present Illness Chief Complaint: spells Narrative: Handedness: right. HPI: Ms. Tong is a 77 year-old with migraine, peripheral neuropathy, B12 deficiency, anemia, CAD, CHF, mitral valve prolapse, pre-diabetes, osteoporosis, anxiety, COPD, hypothyroidism. Dio is at bedside. She also has memory changes with age and has been seeing Vanessa Moore NP in the neurology clinic since 2019 and last seen in August 2022. Over time, she has had a decline in her MOCA from 26/30 in 2019 to most recent 17/30 in August 2022 - with perseveration of delayed recall and new impairments in visuospatial and executive function. About 1 year ago, Ms. Tong's spouse reported staring spells (though sounds like could get her out of them), spells of odd behavior/wandering, and confusional spells. She underwent AmbEEG as below. Following AmbEEG, these events apparently resolved. At the last visit in August 2022, the noted the following: He describes that occasionally she seems to have difficulty finding her way in their home. She will try to bring dishes to the kitchen but walks towards the bedroom instead. She has noticed that she is having more difficulty using the computer. In the last month she has been waking up at night and engaging Dio in conversation, sometimes she appears as though she is dreaming, and has no recollection of this the next day. She is not driving. Dio has been concerned about her safety in the bathtub as she will frequently fall asleep while bathing and sometimes drop items such as her book or the cell phone in the tub. Dio notes over the weekend, Anika said she would make dinner. A few minutes later, she said dinner was done and he came to the kitchen to find frozen pot pies sitting on their plates. He notes with increasing frequency that she is awaking during the night asking to go home, or trying to leave the house - even when not dressed. At these times, Anika will apparently get very upset - doesn't understand why she isn't home, why she can't leave, etc. Was very upset with the pot pies and couldn't understand why they weren't ready to eat. Symptoms were attributed to progression of her neurodegenerative process. Last night, patient was taking a bath. went to check on her - unclear if he head a sound or something else -but found her to have generalized shaking and foaming at the mouth. He is still quite upset about this and it is difficult to get any details out of it. After a short duration, she then became unresponsive. After another time period she slowly started to respond. She was brought her by EMS. She has no prior history of definite seizures. Spells as above. She is back to baseline at present. She has undergone the testing as below. Work-up: -Labs (03/07/23): W 8.11, Na 142, K 3.0, Cl 103, Cr 1.1, glucose 82, Ca 9.5, Mag 1.9, Tbili 1.2, AlkP 122, AST/ALT ok, trop x 2 neg, lipase 38, TSH 11.96, FT4 0.89, UA neg, ETOH neg -CTH (03/07/23): No acute findings. Chronic vascular changes. I reviewed these images personally and this is my personal interpretation. -CTA head/neck (03/07/23): atheroscerosis/plaque but no significant stenosis. I reviewed these images personally and this is my personal interpretation. -TTE (03/08/23): EF 60-65%, no wall motion abnormalities. LA normal. No structural valve abnormalities. 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 Migraine with vertigo (Acute 08/06/14) Medical History Cataract Intermittent asthma Constipation Vitamin D deficiency Hypernatremia Adjustment disorder with mixed anxiety and depressed mood Loss of balance Mammogram abnormal Preventative health care Mitral valve prolapse B12 deficiency Anemia, iron deficiency Atopic dermatitis Fatigue Heart failure Osteoporosis Decreased hearing Dyspnea on exertion Cough Restrictive lung disease Frequent falls Memory impairment Anxiety Carpal tunnel syndrome Pre-diabetes COPD (chronic obstructive pulmonary disease) CAD (coronary artery disease) Chest pain Osteopenia Hypothyroid Vestibular migraine Benign positional vertigo Surgical History Hx of cataract surgery History of cardiac catheterization without stenting History of colonoscopy Ligation of fallopian tube Tonsillectomy and adenoidectomy Family History Other Cancer Heart disease Social History (Updated 03/07/23 @ 22:45 by Jasper Chappell) Smoking/Tobacco Use Status: Never Smoking risk assessment performed?: Yes Alcohol Intake: former Drug use: Never Substance use type: does not use Household members: spouse Housing: house Number of Children: 2 Pets and animals: Yes Pets and animals: dog(s) Current gender identity: female What is your relationship status?: Panel score (0-1 are the most socially isolated patients): 1 Seatbelt use: always Do you feel safe at home: Yes Do you feel safe in your relationship?: Yes Additional Social history: Lives with Dio in [facility] in [facility]. Retired teacher. Visit Medication and Allergies Active Medications Generic Name Dose Route Start Last Admin Trade Name Freq PRN Reason Stop Dose Admin Aspirin 81 mg 03/08/23 08:30 03/08/23 08:14 Aspirin E.C. 81 Mg Tabec PO 81 mg DAILY [facility] Administration Atorvastatin Calcium 20 mg 03/08/23 20:00 Atorvastatin 20 Mg Tab PO QPM PINA Bumetanide 2 mg 03/08/23 08:30 03/08/23 08:14 Bumetanide 1 Mg Tab PO 2 mg DAILY PINA Administration Cholecalciferol 2,000 units 03/08/23 08:30 03/08/23 08:13 Cholecalciferol (Vitamin D3) 1,000 Unit Tab PO 2,000 units DAILY PINA Administration Cyanocobalamin 1,000 mcg 03/08/23 08:30 03/08/23 08:13 Cyanocobalamin 100 Mcg Tablet PO 1,000 mcg DAILY [facility] Administration Enoxaparin Sodium 40 mg 03/08/23 22:00 Enoxaparin 40 Mg/0.4 Ml Syr SC Q24H [facility] Fluticasone Propionate 0 gm 03/08/23 07:22 Fluticasone Nasal Bruni 16 Gm Btl NS DAILY PRN PRN Isosorbide Mononitrate 60 mg 03/08/23 08:30 03/08/23 08:42 Isosorbide Mononitrate 60 Mg Tabcr PO 60 mg DAILY [facility] Administration Levetiracetam 500 mg 03/08/23 20:00 Levetiracetam 250 Mg Tab PO BID [facility] Levothyroxine Sodium 75 mcg 03/09/23 06:00 Levothyroxine 75 Mcg Tab PO TuTh@0600 [facility] Levothyroxine Sodium 50 mcg 03/10/23 06:00 Levothyroxine 50 Mcg Tab PO SuMoWeFrSa@0600 [facility] Mometasone Furoate 1 puff 03/08/23 07:25 Mometasone 220 Mcg 14 Dose Inhaler IH BID PRN PRN Potassium Chloride 40 meq 03/09/23 08:30 Potassium Chloride 20 Meq Tabcr PO DAILY [facility] Sodium Chloride 0 ml 03/07/23 17:08 03/08/23 08:14 Normal Saline Flush 10 Ml Syr IJ 10 ml PRN PRN Administration Allergies alendronate sodium [From Fosamax] Adverse Reaction (Mild, Unverified 09/22/22 08:00) Nausea torsemide Adverse Reaction (Verified 09/22/22 08:00) Exam Narrative Exam Narrative: Physical Exam: Gen: Patient of apparent stated age, NAD Head and face: no facial or cranial abnormalities Neck: Supple, no meningismus, no occipital tenderness CV: + S1, S2, RRR, no murmur Resp: CTA B/L Abd: soft, nontender, nondistended Ext: No edema. No clubbing or cyanosis. No bony deformity. Neuro Exam: Language: fluency, naming, repetition, and comprehension intact; Mental Status: AAOxself and place, current events and, fund of knowledge seemingly intact; Speech: no dysarthria Cranial nerves: Funduscopy: not performed CN II: visual armstrong intact CN III, IV, : extraocular movements intact, no nystagmus, pupils symmetric and reactive to light CN V: face sensation intact to LT CN VII: no facial asymmetry noted CN VIII: hearing intact bilaterally CN IX, X: palate rises symmetrically CN XI: trapezius/SCM 5/5 bilaterally CN XII: protrudes tongue symmetrically Sensory: intact to LT in all extremities Motor: bulk and tone intact. Fine motor movements intact bilaterally. No pronator drift. Strength 5/5 throughout including the deltoids, biceps, triceps, wrist extensors, hip flexors, knee flexors, knee extensors, ankle flexors, and ankle extensors. Reflexes: 2+ at the biceps, triceps, brachioradialis; 1+/hyporeflexic at the patella and achilles tendons bilaterally; toes down going bilaterally; Coordination: FTN and HTS intact bilaterally Gait: not seen Results Last Vital Signs Temp 98.4 F 03/08/23 15:09 Pulse 81 03/08/23 15:09 Resp 16 03/08/23 15:09 BP 116/66 03/08/23 15:09 Pulse Ox 95 03/08/23 15:09 Labs 03/07/23 17:00 03/08/23 06:10 Labs: Laboratory Results - last 24 hr 03/07/23 03/07/23 03/07/23 17:00 17:05 19:26 WBC 8.11 RBC 4.31 Hgb 13.0 Hct 40.0 MCV 93 MCH 30.2 MCHC 32.5 RDW 14.6 Plt Count 276 MPV 9.2 Immature Gran % 0.1 Neutrophils % 40.1 Lymphocytes % 43.4 Monocytes % 11.6 Eosinophils % 4.2 Basophils % 0.6 Nucleated RBC % 0.0 Absolute Neutrophils 3.25 Absolute Lymphocytes 3.52 H Absolute Monocytes 0.94 H Absolute Eosinophils 0.34 Absolute Basophils 0.05 Sodium 142 Potassium 3.0 L Chloride 103 Carbon Dioxide 26.8 Anion Gap 12.2 H BUN 12 Creatinine 1.1 H Est GFR (CKD-EPI 2020) 51.75 Glucose 82 Calcium 9.5 Magnesium 1.9 Total Bilirubin 1.2 H AST 21 ALT 22 Alkaline Phosphatase 122 H Troponin I < 50 < 50 Total Protein 7.5 Albumin 3.6 Lipase 38 TSH 11.96 H Free T4 0.89 Urine Color Yellow Urine Clarity Clear Urine pH 6.0 Ur Specific [place] 1.010 Urine Protein 30 H Urine Ketones Negative Urine Blood Trace-intact H Urine Nitrite Positive H Urine Bilirubin Negative Urine Urobilinogen 1.0 H Ur Leukocyte Esterase Negative Urine RBC 0-2 Urine WBC 0-2 Ur Epithelial Cells Moderate Urine Crystals Moderate Uric Acid Urine Bacteria Few Urine Casts 3-5 Hyaline Urine Mucus Negative Ur Culture Indicated? No/Sq. Contamination Urine Glucose Negative Ethyl Alcohol < 3.0 COVID-19 Source Nasal/Nares SARS-CoV-2 (PCR) Negative 03/08/23 06:10 WBC RBC Hgb Hct MCV MCH MCHC RDW Plt Count MPV Immature Gran % Neutrophils % Lymphocytes % Monocytes % Eosinophils % Basophils % Nucleated RBC % Absolute Neutrophils Absolute Lymphocytes Absolute Monocytes Absolute Eosinophils Absolute Basophils Sodium 141 Potassium 3.1 L Chloride 106 Carbon Dioxide 26.6 Anion Gap 8.4 BUN 10 Creatinine 1.0 Est GFR (CKD-EPI 2020) 58.02 Glucose 109 H Calcium 9.2 Magnesium Total Bilirubin AST ALT Alkaline Phosphatase Troponin I Total Protein Albumin Lipase TSH Free T4 Urine Color Urine Clarity Urine pH Ur Specific [place] Urine Protein Urine Ketones Urine Blood Urine Nitrite Urine Bilirubin Urine Urobilinogen Ur Leukocyte Esterase Urine RBC Urine WBC Ur Epithelial Cells Urine Crystals Urine Bacteria Urine Casts Urine Mucus Ur Culture Indicated? Urine Glucose Ethyl Alcohol COVID-19 Source SARS-CoV-2 (PCR)
--- NOTE | 2023-03-08 16:06 | PGE_ITS ---
Date of Service Date of service: 03/08/23 Time of Service: 16:06 Assessment and Plan Assessment and plan (1) Seizure: Status: Acute Assessment and plan: The most likely explanation for the event at home, given hx of staring spells. The patient is being started on keppra. Await EEG. Evaluated by Dr Andrade who will see the patient in the clinic. (2) AMS (altered mental status): Status: Acute Assessment and plan: Suspect post-ictal state. Mental status has already much improved. Continue to monitor with inititaion of keppra. (3) Acute hypokalemia: Status: Acute Assessment and plan: Replete, recheck in am (4) Mild cognitive impairment: Status: Chronic Assessment and plan: She certainly is presenting very well to me today, but the history is suggestive of dementia vs behavioral spells. Discussed with Dr Andrade who will see the patient in the office in consideration of further workup. (5) CAD (coronary artery disease): Assessment and plan: continue ASA and atorvastatin. Echo without evidence of wall motion abnormalities. No evidence of ACS on this admission. (6) COPD (chronic obstructive pulmonary disease): Assessment and plan: Not in acute exacerbation. Continue home therapy. (7) DVT prophylaxis: Status: Acute Assessment and plan: Enoxaparin (8) Discharge planning issues: Status: Acute Assessment and plan: Full code Consult palliative care Discussed with Dr Andrade Subjective Subjective Interval history since last seen: Ms Tong states that that she is feeling tired, but otherwise back to normal. At some point she recalls having neck pain, but none nonw. Denies headache, dizziness, CP, SOB, nausea. Per , her speech is not quite back to baseline and she is having a hard time with short term memory (forgets what she is doing while doing the task) today. He does not think she is ready to come home yet. Exam Narrative Exam Narrative: General: Pleasant elderly female who is A&Ox3 while I am visiting, no obvious focal deficits, comfortable in bed, conversant, appropriate, I am not noticing speech problems HEENT: EOMI, MMM Heart: RRR, no m/r/g Lungs: CTAB Abdomen: soft, nontender, nondistended Extremities: no edema BLEs Objective Last Vital Signs Temp 36.9 C 03/08/23 15:09 Pulse 81 03/08/23 15:09 Resp 16 03/08/23 15:09 BP 116/66 03/08/23 15:09 Pulse Ox 95 03/08/23 15:09 Laboratory Results - last 24 hr 03/07/23 03/07/23 03/07/23 17:00 17:05 19:26 WBC 8.11 RBC 4.31 Hgb 13.0 Hct 40.0 MCV 93 MCH 30.2 MCHC 32.5 RDW 14.6 Plt Count 276 MPV 9.2 Immature Gran % 0.1 Neutrophils % 40.1 Lymphocytes % 43.4 Monocytes % 11.6 Eosinophils % 4.2 Basophils % 0.6 Nucleated RBC % 0.0 Absolute Neutrophils 3.25 Absolute Lymphocytes 3.52 H Absolute Monocytes 0.94 H Absolute Eosinophils 0.34 Absolute Basophils 0.05 Sodium 142 Potassium 3.0 L Chloride 103 Carbon Dioxide 26.8 Anion Gap 12.2 H BUN 12 Creatinine 1.1 H Est GFR (CKD-EPI 2020) 51.75 Glucose 82 Calcium 9.5 Magnesium 1.9 Total Bilirubin 1.2 H AST 21 ALT 22 Alkaline Phosphatase 122 H Troponin I < 50 < 50 Total Protein 7.5 Albumin 3.6 Lipase 38 TSH 11.96 H Free T4 0.89 Urine Color Yellow Urine Clarity Clear Urine pH 6.0 Ur Specific [place] 1.010 Urine Protein 30 H Urine Ketones Negative Urine Blood Trace-intact H Urine Nitrite Positive H Urine Bilirubin Negative Urine Urobilinogen 1.0 H Ur Leukocyte Esterase Negative Urine RBC 0-2 Urine WBC 0-2 Ur Epithelial Cells Moderate Urine Crystals Moderate Uric Acid Urine Bacteria Few Urine Casts 3-5 Hyaline Urine Mucus Negative Ur Culture Indicated? No/Sq. Contamination Urine Glucose Negative Ethyl Alcohol < 3.0 COVID-19 Source Nasal/Nares SARS-CoV-2 (PCR) Negative 03/08/23 06:10 WBC RBC Hgb Hct MCV MCH MCHC RDW Plt Count MPV Immature Gran % Neutrophils % Lymphocytes % Monocytes % Eosinophils % Basophils % Nucleated RBC % Absolute Neutrophils Absolute Lymphocytes Absolute Monocytes Absolute Eosinophils Absolute Basophils Sodium 141 Potassium 3.1 L Chloride 106 Carbon Dioxide 26.6 Anion Gap 8.4 BUN 10 Creatinine 1.0 Est GFR (CKD-EPI 2020) 58.02 Glucose 109 H Calcium 9.2 Magnesium Total Bilirubin AST ALT Alkaline Phosphatase Troponin I Total Protein Albumin Lipase TSH Free T4 Urine Color Urine Clarity Urine pH Ur Specific [place] Urine Protein Urine Ketones Urine Blood Urine Nitrite Urine Bilirubin Urine Urobilinogen Ur Leukocyte Esterase Urine RBC Urine WBC Ur Epithelial Cells Urine Crystals Urine Bacteria Urine Casts Urine Mucus Ur Culture Indicated? Urine Glucose Ethyl Alcohol COVID-19 Source SARS-CoV-2 (PCR) Objective Narrative Objective Narrative: Echo: Normal left ventricular wall thickness and chamber size. Ejection fraction is 60 to 65%. Wall motion is normal Normal right ventricular size and systolic function Both atria are normal in size There are no structural valvular abnormalities There is mild mitral regurgitation Time Spent with Patient Time Spent with Patient: 35-49 minutes Time was spent: preparing to see the patient(eg.review tests), obtaining and/or reviewing separately otained hiistory, ordering medications,tests, procedures, referring, communicating with other health patient centered care specialist, indepentently interpreting results, counseling the patient and care coordination
[2023-03-08] MEDS: Atorvastatin 20 MG TAB PO (19:43)
[2023-03-08] MEDS: Enoxaparin 40 MG/0.4 ML SYR SC (21:50)
[2023-03-09 02:40] VITALS: BP 117/64; PULSE 83; RESP 16; TEMP 36; O2SAT 94
[2023-03-09 03:45] VITALS: PULSE 85
[2023-03-09] MEDS: Levothyroxine 75 MCG TAB PO (06:23)
[2023-03-09 06:37] LABS: Abs Immature Grans 0.01 10^3/uL (0.0-0.06); Absolute Basophil Count 0.05 10^3/uL (0.0-0.2); Absolute Eosinophil Count 0.33 10^3/uL (0.0-0.7); Absolute Lymphocyte Count 2.35 10^3/uL (1.2-3.4); Absolute Neutrophil Count 2.46 10^3/uL (1.2-6.7); Basophils % 0.9; Eosinophils % 5.8; HCT 33.3 % (36.0-46.0); Immature Grans % 0.2; Lymphocytes % 41.2; MCH 30.9 pg (27.0-33.0); MCV 94 fL (80-95); MPV 9.3 fL (8.0-11.0); Monocytes % 8.8; Neutrophils % 43.1; Platelet Count 231 10^3/uL (130-400); RBC 3.56 10^6/uL (3.93-5.22); RDW-SD 51.6 fL
[2023-03-09 06:57] LABS: Anion Gap 7.6 mmol/L (3-11); BUN 14 mg/dL (7-18); CO2 28.4 mmol/L (21.0-32.0); CREATININE 0.9 mg/dL (0.55-1.02); Chloride 107 mmol/L (98-107); Estimated GFR 65.84 (mL/min/1.73m2); Glucose 109 mg/dL (74-106); Magnesium 2.1 mg/dL (1.8-2.4); Potassium 3.4 mmol/L (3.5-5.1); Sodium 143 mmol/L (136-145)
[2023-03-09 07:09] VITALS: BP 118/72; PULSE 72; RESP 18; TEMP 37; O2SAT 94
[2023-03-09] MEDS: Aspirin E.C. 81 MG TABEC PO (08:57)
[2023-03-09] MEDS: Cyanocobalamin 100 MCG TABLET 1000 MCG PO (08:57)
[2023-03-09] MEDS: Potassium Chloride 20 MEQ TABCR 40 MEQ PO (08:57)
[2023-03-09] MEDS: Isosorbide Mononitrate 60 MG TABCR PO (08:57)
[2023-03-09] MEDS: Bumetanide 1 MG TAB 2 MG PO (08:57)
[2023-03-09] MEDS: levETIRAcetam 250 MG TAB 500 MG PO (08:58)
[2023-03-09] MEDS: Cholecalciferol (Vitamin D3) 1,000 UNIT TAB 2000 UNITS PO (08:58)
[2023-03-09 12:19] LABS: HCT 38.4 % (36.0-46.0); HGB 12.3 g/dL (11.2-15.7)
--- NOTE | 2023-03-09 12:26 | PDOC.EEG ---
Neurology EEG EEG: [facility] Department of Neurology INPATIENT EEG REPORT Date of Recordin03/09/23 Interpreting Physician: Dr. Sharyn Andrade Reason for study: Ms. Tong is a 77 year-old admitted after first seizure. Current Medications: Current Medications Aspirin (Aspirin E.C. 81 Mg Tabec) 81 mg PO DAILY [facility] Last Admin: 03/09/23 08:57 Dose: 81 mg Atorvastatin Calcium (Atorvastatin 20 Mg Tab) 20 mg PO QPM [facility] Last Admin: 03/08/23 19:43 Dose: 20 mg Bumetanide (Bumetanide 1 Mg Tab) 2 mg PO DAILY [facility] Last Admin: 03/09/23 08:57 Dose: 2 mg Cholecalciferol (Cholecalciferol (Vitamin D3) 1,000 Unit Tab) 2,000 units PO DAILY [facility] Last Admin: 03/09/23 08:58 Dose: 2,000 units Cyanocobalamin (Cyanocobalamin 100 Mcg Tablet) 1,000 mcg PO DAILY [facility] Last Admin: 03/09/23 08:57 Dose: 1,000 mcg Enoxaparin Sodium (Enoxaparin 40 Mg/0.4 Ml Syr) 40 mg SC Q24H [facility] Last Admin: 03/08/23 21:50 Dose: 40 mg Fluticasone Propionate (Fluticasone Nasal [place] 16 Gm Btl) 0 gm NS DAILY PRN PRN Isosorbide Mononitrate (Isosorbide Mononitrate 60 Mg Tabcr) 60 mg PO DAILY [facility] Last Admin: 03/09/23 08:57 Dose: 60 mg Levetiracetam (Levetiracetam 250 Mg Tab) 500 mg PO BID [facility] Last Admin: 03/09/23 08:58 Dose: 500 mg Levothyroxine Sodium (Levothyroxine 75 Mcg Tab) 75 mcg PO TuTh@0600 [facility] Last Admin: 03/09/23 06:23 Dose: 75 mcg Levothyroxine Sodium (Levothyroxine 50 Mcg Tab) 50 mcg PO SuMoWeFrSa@0600 [facility] Mometasone Furoate (Mometasone 220 Mcg 14 Dose Inhaler) 1 puff IH BID PRN PRN Potassium Chloride (Potassium Chloride 20 Meq Tabcr) 40 meq PO DAILY [facility] Last Admin: 03/09/23 08:57 Dose: 40 meq Sodium Chloride (Normal Saline Flush 10 Ml Syr) 0 ml IJ PRN PRN Last Admin: 03/08/23 08:14 Dose: 10 ml METHODS: A 21 channel digitized electroencephalogram was performed in the [facility] Med/Surg Floor or ICU. The 10/20 international system of electrode placement was used and bipolar and referential electrode montages were recorded. In addition to EEG the patient was monitored for EKG and lateral/vertical eye movements. Activation procedures of photic stimulation and hyperventilation were performed if applicable. Video was used during activation procedures and during events where applicable. The duration of the recording was 30 minutes. DESCRIPTION OF EEG: The patient was noted to be awake and drowsy during the recording. During maximal wakefulness a 6-7 Hz posterior background rhythm was present which was well-modulated, symmetrical, reactive to eye opening, and of moderate voltage. With eye opening the background activity changed to a low voltage mixture of alpha, beta, and occasional theta range frequencies. Faster frequencies were present in the bilateral anterior head regions. There was a normal anterior-posterior voltage gradient. During drowsiness, there was attenuation of the posterior dominant background rhythm and vertex waves. No stage II sleep was recorded. There was a single P4 sharp-wave during the recording. This was not clearly epileptic. Activating Procedures: Photic stimulation was not performed at patient request. Hyperventilation was not performed due to patient age. EKG: EKG revealed normal sinus rhythm. INTERPRETATION: This EEG is abnormal due to mild, polymorphic, generalized slowing. PRIOR EEG: -Amb EEG (May 2022 x 24hour): generalized slowing and slowing of the PDR. Photic driving response on the right only. Single event captured manifested as headache without any associated EEG changes. CLINICAL CORRELATION: The slowing is suggestive of a mild diffuse cerebral encephalopathy of broad differential including toxic-metabolic etiology. No focal regions of cerebral dysfunction or epileptiform activity was present. Clinical correlation is advised. Sharyn Andrade MD Date of service: 03/09/23 Coding CPT Codes EEG AWAKE AND DROWSY - [id number] ([id number])
[2023-03-09 12:37] VITALS: BP 105/54; PULSE 79; RESP 17; TEMP 36.1; O2SAT 96
[2023-03-09 14:56] VITALS: BP 110/65; PULSE 85; RESP 17; TEMP 36.6; O2SAT 92
--- NOTE | 2023-03-09 15:48 | PDOC.CMDIS ---
Date of service: 03/09/23 Time of Service: 15:48 LACE Index Scoring Tool Questions: Length of Stay (in days): 2 Was the patient admitted via the E.D.?: Yes Comorbidities: Congestive Heart Failure and Chronic Pulmonary Disease E.D. Visits: 1 Answers: Total Score: 11 Risk of Readmission: High Risk Care Management Discharge Plan Reason for Hospitalization: AMS r/o seizure Discharge Plan: Anika will be discharged home with no new services. She will follow up with her community providers and plan of care and transport with her . Patient/Family Education Needs: review of discharge instructions, limitations, activity, follow up plan, discuss Ask Me Three.
--- NOTE | 2023-03-09 15:48 | CHAPLAIN ---
Anika was sitting up in bed when I visited. She's wearing her own pajamas. Her , Thaddeus is with her. Anika was pleasant and engaged in a conversation. Anika asked for some coffee for herself and Thaddeus. According to Care Management notes, Thaddeus found Anika unresponsive in the tub. Her work up has included a neurology referral. The Hospitalist listed mild cognitive dementia as a concern as well. I will continue to visit.
--- NOTE | 2023-03-09 16:15 | DSE_ITS ---
Date of service: 03/09/23 Time of Service: 16:15 DS: Diagnosis Discharge Diagnosis (1) Seizure: Status: Acute (2) Post-ictal state: Status: Acute (3) Mild cognitive impairment: Status: Chronic (4) Acute hypokalemia: Status: Acute Discharge Plan Disposition Patient Disposition: Home Condition: Good Discharge Details Reason For Visit: ams Admit Date/Time: 03/07/23 20:21 Admit Provider: Jasper Chappell Attending Provider: Jasper Chappell [facility] Hospital Course: Ms Tong is a 77 yaer old female with PMHx of mild cognitive impairement, starin g spells at home, as well as h/o CAD, CHFpEF, hypothyroidism, who was a patient on [facility] hospitalist service from 03/07/23 until 03/09/23 after an unresponsive episode with some convulsive activity and frothing at the mouth while in a bathtub at home followed by confusion when coming to it. The patient is suspected to have had a seizure, and anticonvulsant therapy was already being considered for her in the past. Dr Andrade of Neurology was consulted on this admission and recommended initiation of keppra 500 mg BID, which we did, and the patient has tolerated. The patient did not have a recurrence of seizures since her hospitalization. She did have an echocardiogram which did not show any abnormalities to explain an event of unresponsiveness. She did also have an EEG, which showed slowing suggestive of encephalopathy, but no epileptiform or focal activity. She is being discharged home today with outpatient neurology follow up as well as with PCP follow up. She should have bloodwork done as outpatient to monitor her potassium level, which was low on this admission and was repleted. Care for patient as well as completion of her discharge summary on day of discahrge took 45 minutes. Home Meds and New Rx's Prescriptions: New levetiracetam 250 mg Tablet 500 mg PO BID Qty: 60 0RF Continued levalbuterol tartrate [Xopenex HFA] 45 mcg/actuation HFA aerosol inhaler 1 puff IH Q6H PRN Hold Instructions: Pt Stopped/Never Started cholecalciferol (vitamin D3) 50 mcg (2,000 unit) capsule 50 mcg PO DAILY isosorbide mononitrate 60 mg tablet extended release 24 hr 60 mg PO DAILY Flovent Diskus 50 mcg/actuation blister with device 1 inh inhalation BID PRN aspirin 81 mg tablet,delayed release (DR/EC) 81 mg PO DAILY potassium chloride 20 mEq tablet extended release 20 meq PO DAILY levothyroxine 75 mcg tablet See Rx Instructions PO DAILY Qty: 25 0RF Rx Instructions: Take 75 mcg on Tuesdays and , take 50 mcg the rest of the days levothyroxine 50 mcg capsule 50 mcg PO .COMPLEX Qty: 90 3RF Rx Instructions: Take Mon, Wed, Wed, Sat, Wed and take 75 mcg and atorvastatin 20 mg tablet 20 mg PO QPM Qty: 90 3RF docusate sodium [Colace] 100 mg capsule 100 mg PO DAILY PRN Hold Instructions: Pt Stopped/Never Started fluticasone propionate [Flonase Allergy Relief] 50 mcg/actuation spray,suspension 1 spray intranasal DAILY PRN Rx Instructions: administer into each nostril cyanocobalamin (vitamin B-12) [Vitamin B-12] 1,000 mcg Tablet 1,000 mcg PO DAILY bumetanide 1 mg tablet 2 mg PO DAILY tumeric 450 mg See Rx Instructions .ROUTE .COMPLEX Rx Instructions: 450mg tumeric capsule, po, 1x daily Discontinued gabapentin 100 mg capsule 100 mg PO BID Hold Instructions: Pt Stopped/Never Started Discharge Instructions Instructions: Levetiracetam (By mouth), New-Onset Seizure in Adults (DC) Additional Instructions: Return to the hospital with any fever, recurrent seizures, bleeding, chest pain, or shortness of breath. Follow up with your PCP and with neurology. Bloodwork in 1 week. Stand Alone Forms: Nursing Discharge Form Referrals: Prerna Buchanan [Primary Care Provider] - (please call to make a f/u in 1-2 weeks ) Sharyn Andrade MD [ [facility] STAFF PHYSICIAN] - (called and left message for neuro to call with appt. ) Activity:: Activity as Tolerated Equipment/Supplies:: No Equipment Needed Diet:: As Tolerated Discharge Orders Discharge Orders: Discharge Order (Routine); Ordered 03/09/23 Ordered By: Cynthia Conde Other Ambulatory Orders: Basic Metabolic Panel (Routine) Timeframe: [id number] Facility: [facility] - Location: Laboratory Outpatient - [facility] Ordered By: Cynthia Conde DS: Summary Time Spent with Patient providing and/or coordinating discharge services: Greater than 30 minutes Status at Discharge Functional status at discharge: independent ambulation Overall status at discharge: patient is back to baseline Mental Status: mental status grossly normal Speech and Movement: speech and movement normal Mood: congruent mood Affect: normal affect Exam Narrative Exam Narrative: General: Pleasant elderly female who is A&Ox3 while I am visiting, no obvious focal deficits, comfortable sitting up at the edge of the bed, conversant, appropriate, I am not noticing speech problems HEENT: EOMI, MMM Heart: RRR, no m/r/g Lungs: CTAB Abdomen: soft, nontender, nondistended Extremities: no edema BLEs Psych Mental Status: mental status grossly normal Speech and Movement: speech and movement normal Mood: congruent mood Affect: normal affect DS: Data Vitals/I&O Vitals and I&O: Vital Signs Temperature 36.6 C 03/09/23 14:56 Temperature Source Tympanic 03/09/23 14:56 Pulse 85 03/09/23 14:56 Pulse Rhythm Irregular 03/09/23 15:09 Pulse 72 03/07/23 21:01 Respiratory Rate 17 03/09/23 14:56 Respiratory Effort Normal, Non-Labored 03/09/23 15:09 Respiratory Depth Normal 03/09/23 15:09 Respiratory Pattern Normal 03/09/23 15:09 Blood Pressure 110/65 03/09/23 14:56 Blood Pressure Mean 85 03/07/23 21:01 Blood Pressure Position Sitting 03/07/23 16:40 Pulse Oximetry 92 03/09/23 14:56 Oxygen Delivery Method Room Air 03/09/23 14:56 Oxygen Flow Rate 0 03/09/23 14:56 Pain Level 0 03/09/23 14:56 Intake & Output 03/08/23 03/09/23 03/09/23 23:59 11:59 23:59 Intake Total 490 / 740 Output Total 600 / 1675 1250 / 1250 Balance -110 / -935 -1250 / -1250 Intake: Oral 490 / 740 Output: Urine 600 / 1675 1250 / 1250 Other: Urine Color Yellow Pale Urine Appearance Clear Clear Clear Urine Odor Normal Voiding Methods Toilet Bedside Commode Toilet Data Completed and Pending Completed studies during hospitalization [Text1]: CXR: No acute pulmonary findings. CTA head/neck; 1. No large vessel occlusion or significant stenosis on the CT angiography of the head. 2. Atherosclerosis in the cavernous portion of the internal carotid arteries bilaterally with stenosis no greater than 50 percent. 3. No acute intracranial process. 4. No occlusion or significant stenosis on the CT angiography of the neck. Echo: Normal left ventricular wall thickness and chamber size. Ejection fraction is 60 to 65%. Wall motion is normal Normal right ventricular size and systolic function Both atria are normal in size There are no structural valvular abnormalities There is mild mitral regurgitation EEG: The slowing is suggestive of a mild diffuse cerebral encephalopathy of broad differential including toxic-metabolic etiology. No focal regions of cerebral dysfunction or epileptiform activity was present. Clinical correlation is advised. Labs on day of discharge: Labs from last 24 hours 03/09/23 03/09/23 12:00 06:07 WBC 5.70 RBC 3.56 L Hgb 12.3 11.0 L D Hct 38.4 33.3 L MCV 94 MCH 30.9 MCHC 33.0 RDW 15.0 H Plt Count 231 MPV 9.3 Immature Gran % 0.2 Neutrophils % 43.1 Lymphocytes % 41.2 Monocytes % 8.8 Eosinophils % 5.8 Basophils % 0.9 Nucleated RBC % 0.0 Absolute Neutrophils 2.46 Absolute Lymphocytes 2.35 Absolute Monocytes 0.50 Absolute Eosinophils 0.33 Absolute Basophils 0.05 Sodium 143 Potassium 3.4 L Chloride 107 Carbon Dioxide 28.4 Anion Gap 7.6 BUN 14 Creatinine 0.9 Est GFR (CKD-EPI 2020) 65.84 Glucose 109 H Calcium 9.0 Magnesium 2.1 PFSH All Active Problems (Updated 03/09/23 @ 16:17 by Cynthia Conde MD) Post-ictal state (Acute) Discharge planning issues (Acute) Seizure (Acute) DVT prophylaxis (Acute) Acute hypokalemia (Acute) AMS (altered mental status) (Acute) Essential tremor (Acute) Spells of decreased attentiveness (Acute) Lethargy (Acute) Peripheral neuropathy (Acute) Falls (Acute) Mild cognitive impairment (Chronic) Left-sided neglect (Acute) 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 Migraine with vertigo (Acute 08/06/14) Medical History Cataract Intermittent asthma Constipation Vitamin D deficiency Hypernatremia Adjustment disorder with mixed anxiety and depressed mood Loss of balance Mammogram abnormal Preventative health care Mitral valve prolapse B12 deficiency Anemia, iron deficiency Atopic dermatitis Fatigue Heart failure Osteoporosis Decreased hearing Dyspnea on exertion Cough Restrictive lung disease Frequent falls Memory impairment Anxiety Carpal tunnel syndrome Pre-diabetes COPD (chronic obstructive pulmonary disease) CAD (coronary artery disease) Chest pain Osteopenia Hypothyroid Vestibular migraine Benign positional vertigo Surgical History Hx of cataract surgery History of cardiac catheterization without stenting History of colonoscopy Ligation of fallopian tube Tonsillectomy and adenoidectomy Family History Other Cancer Heart disease Social History (Updated 03/07/23 @ 22:45 by Jasper Chappell) Smoking/Tobacco Use Status: Never Smoking risk assessment performed?: Yes Alcohol Intake: former Drug use: Never Substance use type: does not use Household members: spouse Housing: house Number of Children: 2 Pets and animals: Yes Pets and animals: dog(s) Current gender identity: female What is your relationship status?: Panel score (0-1 are the most socially isolated patients): 1 Seatbelt use: always Do you feel safe at home: Yes Do you feel safe in your relationship?: Yes Additional Social history: Lives with Dio in [facility] in [facility]. Retired teacher. Time Spent with Patient Time Spent with Patient: 45-69 minutes Time was spent: preparing to see the patient(eg.review tests), obtaining and/or reviewing separately otained hiistory, ordering medications,tests, procedures, referring, communicating with other health critical care transport nurse, indepentently interpreting results, counseling the patient and care coordination
== END 2023-03-09 17:50 | disposition home or self-care (01) ==
LOC: ER 20:41 → MS 21:17
PROVIDERS: Internal Medicine; Admitting Provider Family Medicine; Emergency Provider Physician Assistant; PCP Nurse Practitioner Family; Visit Provider Family Medicine
DX: G31.84 Mild cognitive impairment of uncertain or unknown etiology (principal); J44.9 Chronic obstructive pulmonary disease, unspecified; D50.9 Iron deficiency anemia, unspecified; I50.30 Unspecified diastolic (congestive) heart failure; R56.9 Unspecified convulsions; I25.10 Atherosclerotic heart disease of native coronary artery without angina pectoris; R73.03 Prediabetes; G62.9 Polyneuropathy, unspecified; E03.9 Hypothyroidism, unspecified; F41.9 Anxiety disorder, unspecified; G43.909 Migraine, unspecified, not intractable, without status migrainosus; M81.0 Age-related osteoporosis without current pathological fracture; E53.8 Deficiency of other specified B group vitamins; I34.0 Nonrheumatic mitral (valve) insufficiency; E87.6 Hypokalemia; G25.0 Essential tremor; R29.6 Repeated falls; K59.00 Constipation, unspecified; E55.9 Vitamin D deficiency, unspecified
CPT/HCPCS: 00123; 36415; 36416; 70496; 70498; 80048; 80053; 82962; 83690; 87635; 93005; 93306; 95816; 96361; 96365; 96366; 96372; 99223; 99285; J1650; 71046; 80320; 81003; 81015; 83735; 84439; 84443; 84484; 85014; 85018; 85025; 93010; 99233; 99239; G0378; J3480; J3490

== ENCOUNTER → 2023-03-08 07:56 | Outpatient (BNVA) | payer MEDICARE, BC, SELFPAY | PROVIDERS: PCP Nurse Practitioner Family; Referring Provider Nurse Practitioner Family; Visit Provider Psychiatry & Neurology Neurology ==

== ENCOUNTER → 2023-03-09 12:46 | Outpatient (BNVA) | payer MEDICARE, BC, SELFPAY | PROVIDERS: PCP Nurse Practitioner Family; Referring Provider Nurse Practitioner Family; Visit Provider Psychiatry & Neurology Neurology ==

== ENCOUNTER 2023-03-19 02:56 | Outpatient (CLI) | payer MEDICARE, BC, SELFPAY ==
[2023-03-19 10:11] LABS: Anion Gap 9.1 mmol/L (3-11); BUN 15 mg/dL (7-18); CO2 29.9 mmol/L (21.0-32.0); Chloride 107 mmol/L (98-107); Estimated GFR 58.02 (mL/min/1.73m2); Glucose 147 mg/dL (74-106); Potassium 3.3 mmol/L (3.5-5.1); Sodium 146 mmol/L (136-145)
== END 2023-03-19 02:57 | disposition home or self-care (01) ==
PROVIDERS: Internal Medicine; PCP Nurse Practitioner Family; Visit Provider Family Medicine
DX: E87.6 Hypokalemia (principal)
CPT/HCPCS: 36415; 80048

== ENCOUNTER 2023-05-11 16:10 | Outpatient (REF) | payer MEDICARE, BC, SELFPAY ==
[2023-05-11 21:26] LABS: Abs Immature Grans 0.01 10^3/uL (0.0-0.06); Absolute Basophil Count 0.07 10^3/uL (0.0-0.2); Absolute Eosinophil Count 0.48 10^3/uL (0.0-0.7); Absolute Lymphocyte Count 2.62 10^3/uL (1.2-3.4); Absolute Neutrophil Count 2.79 10^3/uL (1.2-6.7); HCT 38.7 % (36.0-46.0); HGB 12.5 g/dL (11.2-15.7); Immature Grans % 0.1; Lymphocytes % 38.1; MCH 30.4 pg (27.0-33.0); MCHC 32.3 % (32.0-36.0); MCV 94 fL (80-95); MPV 9.6 fL (8.0-11.0); Monocytes % 13.1; Neutrophils % 40.7; Platelet Count 253 10^3/uL (130-400); RBC 4.11 10^6/uL (3.93-5.22); RDW 15.5 % (11.7-14.6); RDW-SD 54.1 fL; WBC 6.87 10^3/uL (4.4-10.8)
[2023-05-11 21:42] LABS: Iron 56 ug/dL (50-170); Total Iron Binding Capacity 391 ug/dL (250-450); Transferrin Sat 14 % (15-50)
[2023-05-11 22:06] LABS: ALT 21 U/L (14-59); AST 24 U/L (15-37); Albumin 3.4 g/dL (3.4-5.0); Alkaline Phosphatase 107 U/L (46-116); Anion Gap 4.9 mmol/L (3-11); BUN 12 mg/dL (7-18); CO2 34.1 mmol/L (21.0-32.0); CREATININE 0.8 mg/dL (0.55-1.02); Calcium 9.2 mg/dL (8.5-10.1); Chloride 105 mmol/L (98-107); Estimated GFR 75.37 (mL/min/1.73m2); Ferritin 17 ng/mL (8-252); Glucose 90 mg/dL (74-106); Potassium 3.8 mmol/L (3.5-5.1); Sodium 144 mmol/L (136-145); TSH (W/Ref FT4) 4.74 uIU/mL (0.36-3.74); Total Protein 6.9 g/dL (6.4-8.2)
[2023-05-11 22:07] LABS: Vitamin B12 > 2000 pg/mL (193-986)
[2023-05-11 22:25] LABS: FREE T4 1.05 ng/dL (0.76-1.46)
== END 2023-05-11 16:11 | disposition home or self-care (01) ==
LOC: NCHCN 16:10
PROVIDERS: PCP Nurse Practitioner Family; Visit Provider Nurse Practitioner Family
DX: E61.1 Iron deficiency (principal); E03.9 Hypothyroidism, unspecified; M81.0 Age-related osteoporosis without current pathological fracture
CPT/HCPCS: 80053; 82306; 82607; 82728; 83540; 83550; 84439; 84443; 85025

== ENCOUNTER → 2023-05-20 10:49 | Outpatient (BNVA) | payer MEDICARE, BC, SELFPAY | PROVIDERS: PCP Nurse Practitioner Family; Referring Provider Nurse Practitioner Family; Visit Provider Psychiatry & Neurology Neurology | DX: G31.84 Mild cognitive impairment of uncertain or unknown etiology (principal) | CPT/HCPCS: 96125; 99215 ==

== ENCOUNTER 2023-05-21 11:00 | Outpatient (CLI) | payer MEDICARE, BC, SELFPAY | END 2023-05-21 11:01 | disposition home or self-care (01) | PROVIDERS: PCP Nurse Practitioner Family; Visit Provider Nurse Practitioner Family | DX: H81.10 Benign paroxysmal vertigo, unspecified ear (principal) | CPT/HCPCS: 93246 ==

== ENCOUNTER 2023-06-14 07:56 | Outpatient (CLI) | payer MEDICARE, BC, SELFPAY ==
--- NOTE | 2023-06-14 09:49 | W.CARDEVENT ---
Date of service: 06/14/23 Time of Service: 09:49 Cardiac Event Recorder Referring Provider:: ayah Buchanan Indications:: Benign positional vertigo Cardiac Event Note: This is a cardiac event monitor reportedly ordered for benign positional vertigo Patient was monitored for 13 days and 13 hours Rhythm throughout was sinus. Average heart rate was 76. Minimum was 53, maximum 128 There were very rare ventricular ectopic beats There were occasional atrial premature beats. There were rare self-limited atrial runs, the longest of these was 8 beats in duration. There was no atrial fibrillation, no high-grade AV block, no pauses greater than 3 seconds Patient's symptoms were reported which correlated to sinus rhythm
== END 2023-06-14 07:57 | disposition home or self-care (01) ==
LOC: CARDOPNVT 07:56
PROVIDERS: PCP Nurse Practitioner Family; Visit Provider Internal Medicine Cardiovascular Disease
DX: H81.13 Benign paroxysmal vertigo, bilateral (principal)
CPT/HCPCS: 93248

== ENCOUNTER → 2023-07-29 10:53 | Outpatient (BNVA) | payer MEDICARE, BC, MEDICAID, SELFPAY | PROVIDERS: PCP Nurse Practitioner Family; Referring Provider Nurse Practitioner Family; Visit Provider Psychiatry & Neurology Neurology | DX: G31.84 Mild cognitive impairment of uncertain or unknown etiology (principal); R73.9 Hyperglycemia, unspecified | CPT/HCPCS: 99215 ==

== ENCOUNTER 2023-08-17 16:16 | Outpatient (REF) | payer MEDICARE, BC, SELFPAY ==
[2023-08-17 21:39] LABS: FREE T4 0.97 ng/dL (0.76-1.46); TSH 3.22 uIU/Ml (0.36-3.74)
[2023-08-17 21:44] LABS: Hemoglobin A1C 6.4 % (<5.7)
[2023-08-18 18:36] LABS: T3,Free 3.6 pg/mL (2.8-5.3)
[2023-08-19 11:57] LABS: Lyme Ab w Rflx to Lyme Confirm Positive (Negative)
[2023-08-19 15:25] LABS: Albumin 55.2 % (55.8-66.1); Albumin g/dL 3.8 g/dL (3.6-5.2); Total Protein 6.8 g/dL (6.3-8.2)
[2023-08-19 15:36] LABS: Albumin, Urine % 16.6 %; Albumin, Urine mg/dL <1 mg/dL; Globulins, Urine % 83.4 %; Globulins, Urine mg/dL <4 mg/dL; Immunotyping, Urine (See Note); Total Protein Urine <5 mg/dL (See Note)
[2023-08-19 16:18] LABS: Lyme IgG Ab Positive (Negative); Lyme IgM Ab Positive (Negative)
[2023-08-21 00:34] LABS: Anaplasma phagocytophilum Negative (Negative); B. miyamotoi PCR Negative (Negative); Babesia divergens/MO-1 Negative (Negative); Babesia duncani Negative (Negative); Babesia microti Negative (Negative); Ehrlichia chaffeensis Negative (Negative); Ehrlichia ewingii/canis Negative (Negative); Ehrlichia muris eauclairensis Negative (Negative)
[2023-08-23 01:44] LABS: Thiamine (Vitamin B1), WB 100 nmol/L (70-180)
== END 2023-08-17 16:17 | disposition home or self-care (01) ==
LOC: NCHCN 16:16
PROVIDERS: PCP Nurse Practitioner Family; Visit Provider Nurse Practitioner Family
DX: R53.83 Other fatigue (principal); E03.9 Hypothyroidism, unspecified; G31.84 Mild cognitive impairment of uncertain or unknown etiology
CPT/HCPCS: 84156; 84166; 86335; 86617; 87798; 83036; 84165; 84425; 84439; 84443; 84481; 86618

== ENCOUNTER 2023-09-22 16:55 | Emergency (ER) | payer MEDICARE, BC, SELFPAY ==
[2023-09-22 16:43] VITALS: BP 139/74; PULSE 87; RESP 16; TEMP 37.1; O2SAT 92
--- NOTE | 2023-09-22 16:45 | RT.EKG_ITS ---
APPROVED REPORT Exam: Resting ECG Reason for Exam: Chest Pain Patient Location: E HR:82 bpm ECG Measurements Heart Rate 82 AXIS RI 179 P 43 QRSd 154 QRS 90 QT 457 T -4 QTc 534 Conclusion Sinus rhythm...normal P axis, V-rate 60- 99 RBBB and LPFB...QRSd >120mS, axis(90,210) Normal sinus rhythm at a rate of 82. Right bundle branch block and left posterior fascicular block. RI within normal limits. Prolonged QTc of 534 ms. More pronounced anterior chest wall ST segment d epressions. More pronounced ST segment elevation in aVR and in aVL. Left lateral chest wall more pr onounced ST segment depressions. Changes new compared to prior dated last year.
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
[2023-09-22 17:15] LABS: Abs Immature Grans 0.02 10^3/uL (0.0-0.06); Absolute Basophil Count 0.06 10^3/uL (0.0-0.2); Absolute Eosinophil Count 0.32 10^3/uL (0.0-0.7); Absolute Monocyte Count 0.65 10^3/uL (0.1-0.8); Absolute Neutrophil Count 2.46 10^3/uL (1.2-6.7); Eosinophils % 5.4 %; HCT 37.3 % (36.0-46.0); Immature Grans % 0.3 %; Lymphocytes % 40.6 %; MCH 30.1 pg (27.0-33.0); MCHC 32.2 % (32.0-36.0); MCV 94 fL (80-95); MPV 8.7 fL (8.0-11.0); Neutrophils % 41.7 %; Platelet Count 234 10^3/uL (130-400); RBC 3.99 10^6/uL (3.93-5.22); RDW 15.2 % (11.7-14.6); RDW-SD 52.9 fL; WBC 5.91 10^3/uL (4.4-10.8)
[2023-09-22 17:32] LABS: ALT 25 U/L (14-59); AST 26 U/L (15-37); Albumin 3.3 g/dL (3.4-5.0); Alkaline Phosphatase 102 U/L (46-116); Anion Gap 11.2 mmol/L (3-11); BUN 12 mg/dL (7-18); Bilirubin, Total 1.7 mg/dL (0.2-1.0); CO2 26.8 mmol/L (21.0-32.0); CREATININE 0.9 mg/dL (0.55-1.02); Calcium 8.6 mg/dL (8.5-10.1); Chloride 105 mmol/L (98-107); Estimated GFR 65.44 (mL/min/1.73m2); Glucose 98 mg/dL (74-106); Magnesium 1.7 mg/dL (1.8-2.4); Potassium 2.9 mmol/L (3.5-5.1); Sodium 143 mmol/L (136-145); Total Protein 6.7 g/dL (6.4-8.2); Troponin I < 50 ng/L (< or =60)
--- NOTE | 2023-09-22 17:53 | DI.RAD_ITS ---
Exam(s) XR CHEST 2V PA LATERAL EXAM: XR CHEST 2V PA LATERAL CLINICAL HISTORY: CP TECHNIQUE: 2D digital imaging was performed. Two views. COMPARISON: CR,XR XR CHEST 2V PA LATERAL from 03/07/2023 FINDINGS: Lateral view limited by poor inspiration. HEART: Normal size. Aorta: Enlarged, unchanged. PULMONARY VASCULATURE: Normal. LUNGS: Clear. PLEURAL SPACE: No pleural effusion or pneumothorax. BONE:Scoliosis and degenerative changes. Soft tissues: Unremarkable. IMPRESSION: No acute abnormality. DATA REPOSITORY: RADIATION DOSE DELIVERED:
[2023-09-22] MEDS: Potassium Chloride 20 MEQ TABCR 40 MEQ PO (18:02)
[2023-09-22] MEDS: Magnesium Oxide 400 MG TAB 800 MG PO (18:02)
[2023-09-22] MEDS: POTASSIUM CHLORIDE 20 MEQ/100 ML BAG 50 MEQ IVINF (18:03)
[2023-09-22] MEDS: Normal Saline 1,000 ML 500 ML IV (18:03)
[2023-09-22 18:05] LABS: D-Dimer 667 ng/mlFEU (<500)
[2023-09-22 18:38] VITALS: BP 103/59; PULSE 69; RESP 18; O2SAT 95
[2023-09-22 20:03] VITALS: BP 132/60; PULSE 98; RESP 18; O2SAT 95
[2023-09-22 20:23] LABS: Troponin I < 50 ng/L (< or =60)
[2023-09-22 21:11] VITALS: BP 107/56; PULSE 66; RESP 16; O2SAT 95
[2023-09-22 21:39] VITALS: BP 130/80; PULSE 96; RESP 16; TEMP 36.8
== END 2023-09-22 21:43 | disposition home or self-care (01) ==
PROVIDERS: Emergency Provider Physician Assistant; PCP Nurse Practitioner Family
DX: R07.9 Chest pain, unspecified (principal); R06.02 Shortness of breath; E87.6 Hypokalemia; E83.42 Hypomagnesemia; J44.9 Chronic obstructive pulmonary disease, unspecified; I25.10 Atherosclerotic heart disease of native coronary artery without angina pectoris; R94.31 Abnormal electrocardiogram [ECG] [EKG]; Z79.82 Long term (current) use of aspirin
CPT/HCPCS: 80053; 93005; 99284; 71046; 83735; 84484; 85025; 85379; 93010; 99283; J3480

== ENCOUNTER 2023-09-28 02:17 | Outpatient (CLI) | payer MEDICARE, BC, SELFPAY ==
[2023-09-28 15:27] LABS: Hemoglobin A1C 6.3 % (<5.7)
[2023-09-29 15:08] LABS: Albumin g/dL 3.7 g/dL (3.6-5.2); Total Protein 6.6 g/dL (6.3-8.2)
[2023-10-01 14:29] LABS: Thiamine (Vitamin B1), WB 106 nmol/L (70-180)
== END 2023-09-28 02:18 | disposition home or self-care (01) ==
LOC: LBO 02:17
PROVIDERS: Psychiatry & Neurology Neurology; PCP Nurse Practitioner Family; Visit Provider Nurse Practitioner Family
DX: R41.3 Other amnesia; R73.9 Hyperglycemia, unspecified; G62.9 Polyneuropathy, unspecified
CPT/HCPCS: 36415; 83036; 84165; 84425

== ENCOUNTER → 2023-09-30 10:36 | Outpatient (BNVA) | payer MEDICARE, BC, SELFPAY | PROVIDERS: PCP Nurse Practitioner Family; Referring Provider Nurse Practitioner Family; Visit Provider Psychiatry & Neurology Neurology | DX: G31.84 Mild cognitive impairment of uncertain or unknown etiology; R26.89 Other abnormalities of gait and mobility | CPT/HCPCS: 99215 ==

== ENCOUNTER 2023-10-01 20:58 | Outpatient (REF) | payer MEDICARE, BC, SELFPAY ==
[2023-10-01 22:22] LABS: Anion Gap 8.7 mmol/L (3-11); BUN 12 mg/dL (7-18); CO2 27.3 mmol/L (21.0-32.0); CREATININE 0.9 mg/dL (0.55-1.02); Chloride 109 mmol/L (98-107); Estimated GFR 65.44 (mL/min/1.73m2); Glucose 110 mg/dL (74-106); Potassium 4.1 mmol/L (3.5-5.1); Sodium 145 mmol/L (136-145)
== END 2023-10-01 20:59 | disposition home or self-care (01) ==
LOC: NCHCN 20:58
PROVIDERS: PCP Nurse Practitioner Family; Visit Provider Nurse Practitioner Family
DX: E87.6 Hypokalemia (principal); E83.2 Disorders of zinc metabolism
CPT/HCPCS: 80048; 83735

== ENCOUNTER 2023-12-17 16:33 | Outpatient (REF) | payer MEDICARE, BC, MEDICAID, SELFPAY ==
[2023-12-17 21:09] LABS: Abs Immature Grans 0.02 10^3/uL (0.0-0.06); Absolute Basophil Count 0.04 10^3/uL (0.0-0.2); Absolute Eosinophil Count 0.24 10^3/uL (0.0-0.7); Absolute Lymphocyte Count 2.31 10^3/uL (1.2-3.4); Absolute Monocyte Count 0.71 10^3/uL (0.1-0.8); Absolute Neutrophil Count 3.09 10^3/uL (1.2-6.7); Basophils % 0.6 %; Eosinophils % 3.7 %; HCT 39.2 % (36.0-46.0); HGB 12.4 g/dL (11.2-15.7); Immature Grans % 0.3 %; MCHC 31.6 % (32.0-36.0); MCV 95 fL (80-95); MPV 9.6 fL (8.0-11.0); Monocytes % 11.1 %; Neutrophils % 48.3 %; Platelet Count 286 10^3/uL (130-400); RBC 4.13 10^6/uL (3.93-5.22); RDW 15.6 % (11.7-14.6); RDW-SD 54.4 fL; WBC 6.41 10^3/uL (4.4-10.8)
[2023-12-17 21:43] LABS: ALT 28 U/L (14-59); AST 24 U/L (15-37); Albumin 3.5 g/dL (3.4-5.0); Alkaline Phosphatase 125 U/L (46-116); Anion Gap 6.5 mmol/L (3-11); BUN 11 mg/dL (7-18); Bilirubin, Total 1.27 mg/dL (0.2-1.0); CO2 32.5 mmol/L (21.0-32.0); CREATININE 0.9 mg/dL (0.55-1.02); Calcium 9.2 mg/dL (8.5-10.1); Chloride 106 mmol/L (98-107); Estimated GFR 65.44 (mL/min/1.73m2); Glucose 93 mg/dL (74-106); Potassium 3.9 mmol/L (3.5-5.1); Sodium 145 mmol/L (136-145); TSH (W/Ref FT4) 3.68 uIU/mL (0.36-3.74); Vitamin B12 1747 pg/mL (193-986)
[2023-12-20 09:00] LABS: Lyme Ab w Rflx to Lyme Confirm Positive (Negative)
[2023-12-20 10:59] LABS: Lyme IgG Ab Positive (Negative); Lyme IgM Ab Positive (Negative)
[2023-12-21 11:03] LABS: Levetiracetam 15.7 mcg/mL
[2023-12-21 21:06] LABS: Anaplasma phagocytophilum Negative (Negative); B. miyamotoi PCR Negative (Negative); Babesia divergens/MO-1 Negative (Negative); Babesia duncani Negative (Negative); Babesia microti Negative (Negative); Ehrlichia chaffeensis Negative (Negative); Ehrlichia ewingii/canis Negative (Negative); Ehrlichia muris eauclairensis Negative (Negative)
== END 2023-12-17 16:34 | disposition home or self-care (01) ==
LOC: NCHCN 16:33
PROVIDERS: PCP Nurse Practitioner Family; Visit Provider Nurse Practitioner Family
DX: R47.01 Aphasia (principal)
CPT/HCPCS: 80053; 86617; 87798; 80177; 82607; 83735; 84443; 85025; 86618

== ENCOUNTER → 2024-01-04 11:10 | Outpatient (BNVA) | payer MEDICARE, BC, MEDICAID, SELFPAY | PROVIDERS: PCP Nurse Practitioner Family; Visit Provider Psychiatry & Neurology Neurology | DX: R41.3 Other amnesia (principal); R73.9 Hyperglycemia, unspecified; R26.89 Other abnormalities of gait and mobility; R41.82 Altered mental status, unspecified; R47.9 Unspecified speech disturbances | CPT/HCPCS: 99215 ==

== ENCOUNTER 2024-03-22 12:24 | Emergency (ER) | payer MEDICARE, BC, MEDICAID, SELFPAY ==
[2024-03-22] VITALS (21 sets, daily range): BP systolic 126–157; BP diastolic 57–82; PULSE 63–78; RESP 13–24; TEMP 36.7–36.9; O2SAT 92–96
--- NOTE | 2024-03-22 12:45 | RT.EKG_ITS ---
APPROVED REPORT Exam: Resting ECG Reason for Exam: CVA Patient Location: E HR:69 bpm ECG Measurements Heart Rate 69 AXIS ND 204 P 42 QRSd 155 QRS 61 QT 461 T -16 QTc 494 Conclusion Sinus rhythm, rate 69 RBBB unchanged from prior Borderline QTc prolongation at 494ms No STEMI
--- NOTE | 2024-03-22 12:45 | DI.CT_ITS ---
Exam(s) CT BRAIN NECK CTA EXAM: CT BRAIN NECK CTA CLINICAL HISTORY: Eval stroke, bleed. Known aneurysm, [facility] wednesday. TECHNIQUE: Imaging Protocol: Axial CT angiography was performed with multi-slice acquisition and mu lti-planar and/or 3D reconstructions. CONTRAST MATERIAL: Intravenous: Omnipaque 350 Contrast volume:structured data in ml COMPARISON: CT CT BRAIN NECK CTA from 03/07/2023 FINDINGS: CTA Neck W: Aortic arch anatomy: The aortic arch anatomy is conventional and there is no significant stenosis at the origin of the great vessels off of the aortic arch. No intimal flap evident in the aortic arch. Anterior circulation: Both common carotid arteries ascend with normal luminal diameters. At the level the carotid bulbs and proximal internal carotid arteries there is bilateral calcified an d noncalcified plaque evident. On the left side amount of stenosis is estimated at approximately 10 percent. On the right side amount of stenosis is estimated approximately 20-25 percent. Above this level the internal carotid arteries are patent in the upper neck and skull base-carotid canals. Posterior circulation: Both vertebral arteries originate in conventional fashion off of the subclavian arteries and there is no obvious stenosis at the origin of the vertebral arteries. Both vertebral arteries exhibit normal luminal diameters within the foramen transversarium. Both vertebral arteries contribute to the formation of the basilar artery at the skull base. Posteri or inferior cerebellar arteries originate off the vertebral arteries bilaterally at the skull base. CTA Brain W: Anterior circulation: Both internal carotid arteries are patent in the skull base-carotid canals as well as within the cave rnous sinuses. There is some mild circumferential calcification in the upper intracavernous left ICA again noted with mild focal stenosis of this vessel at this level. The supraclinoid aspect of the l eft internal carotid artery exhibits mild fusiform dilatation (5 mm diameter. Unchanged from previou s. No matute aneurysm evident. Both A1 segments are patent, left being dominant. Anterior cerebral arteries are patent and there is no aneurysm at the level the anterior communicating artery. Both middle cerebral arteries are patent with no evidence of significant stenosis nor intraluminal th rombus. There also no aneurysms of these vessels. Posterior circulation: The basilar artery ascends in the midline without significant stenosis.. Distally it gives off paten t bilateral superior cerebellar arteries. Above this level the basilar artery terminates as patent bilateral posterior cerebral arteries. There is no evidence of aneurysm at the tip of the basilar artery nor elsewhere in the [id number] is. CT BRAIN: There is no evidence of intracranial hemorrhage, mass effect, or shift of midline structures. There are no extra-axial fluid collections. Ventricles are not enlarged or shifted. There are no ring enh ancing lesions in the brain and no abnormal meningeal enhancement. There is relatively symmetrical bilateral periventricular hypodensity consistent with chronic small v essel disease, similar to what was evident on prior CT scan of March 2023. IMPRESSION: 1. Some plaque bilaterally at the carotid bifurcation-proximal ICAs in both sides the neck. Amount o f stenosis at these levels is estimated at less than 30 percent bilaterally. 2. Patent vertebral arteries. Both vertebral arteries contribute to the formation of the basilar art tutu at the skull base. 3. Mild focal stenosis in the right supraclinoid internal carotid artery. Mild fusiform dilatation of the left supraclinoid internal carotid artery. No matute aneurysms. Note height focal intracrania l arterial stenoses evident. 4. Bilateral periventricular chronic small-vessel white matter ischemic disease. No obvious acute in farct. Called by myself to ER physician 03/22/2024 at 2:30 p.m. RADIATION DOSE DELIVERED: 2,156.88mGy.cm Total DLP DATA REPOSITORY: All CT scans at this facility are submitted to the National Radiology Data Registry (NRDR) Dose Index Registry (DIR) with the [employer] (A[employer]). RADIATION OPTIMIZATION: All CT scans at this facility use at least one of these dose optimization te chniques: automated exposure control; mA and/or kV adjustment per patient size (includes targeted exa ms where dose is matched to clinical indication); or iterative reconstruction.
[2024-03-22 13:04] LABS: Abs Immature Grans 0.01 10^3/uL (0.0-0.06); Absolute Basophil Count 0.06 10^3/uL (0.0-0.2); Absolute Lymphocyte Count 2.27 10^3/uL (1.2-3.4); Absolute Monocyte Count 0.62 10^3/uL (0.1-0.8); Absolute Neutrophil Count 3.37 10^3/uL (1.2-6.7); Basophils % 0.9 %; Eosinophils % 3.1 %; HCT 40.3 % (36.0-46.0); HGB 12.7 g/dL (11.2-15.7); Immature Grans % 0.2 %; Lymphocytes % 34.8 %; MCH 29.5 pg (27.0-33.0); MCHC 31.5 % (32.0-36.0); MCV 94 fL (80-95); Monocytes % 9.5 %; Neutrophils % 51.5 %; RDW 15.9 % (11.7-14.6); RDW-SD 54.7 fL; WBC 6.53 10^3/uL (4.4-10.8)
[2024-03-22 13:11] LABS: INR 1.1 (0.9-1.1); Prothrombin Time 10.6 sec (9.1-11.1)
[2024-03-22 13:28] LABS: ALT 23 U/L (14-59); AST 45 U/L (15-37); Albumin 3.4 g/dL (3.4-5.0); Alkaline Phosphatase 119 U/L (46-116); Anion Gap 7.2 mmol/L (3-11); BUN 13 mg/dL (7-18); Bilirubin, Total 1.69 mg/dL (0.2-1.0); CO2 28.8 mmol/L (21.0-32.0); CREATININE 0.9 mg/dL (0.55-1.02); Calcium 9.4 mg/dL (8.5-10.1); Chloride 107 mmol/L (98-107); Estimated GFR 65.44 (mL/min/1.73m2); Glucose 102 mg/dL (74-106); Magnesium 1.9 mg/dL (1.8-2.4); Potassium 4.1 mmol/L (3.5-5.1); Sodium 143 mmol/L (136-145); Total Protein 7.6 g/dL (6.4-8.2); Troponin I 6 ng/L (<or=51)
[2024-03-22] MEDS: Omnipaque 350 MG/ML 100 ML BTL 70 ML IJ (13:33)
[2024-03-22] MEDS: Normal Saline - Diluent 50 ML VIAL IJ (13:35)
--- NOTE | 2024-03-22 14:28 | ED.GENADUL_ITS ---
Discharge Plan Disposition Patient Disposition: Home Condition: Stable Discharge Details Chief Complaint: CVA/TIA Clinical Impression: Weakness, Mild cognitive impairment, Falls, Gait abnormality Primary Care Provider: Prerna Buchanan ED Provider: Sharyn Mathews Home Meds and New Rx's Prescriptions: No Action levalbuterol tartrate [Xopenex HFA] 45 mcg/actuation HFA aerosol inhaler 1 puff IH Q6H PRN cholecalciferol (vitamin D3) 50 mcg (2,000 unit) capsule 50 mcg PO DAILY isosorbide mononitrate 60 mg tablet extended release 24 hr 60 mg PO DAILY fluticasone propionate [Flovent Diskus] 50 mcg/actuation blister with device 1 inh inhalation BID PRN citalopram 10 mg tablet 10 mg PO DAILY Qty: 30 5RF levetiracetam 500 mg tablet 500 mg PO BID Qty: 180 3RF aspirin 81 mg tablet,delayed release (DR/EC) 81 mg PO DAILY levothyroxine 75 mcg tablet See Rx Instructions PO DAILY Qty: 25 0RF Rx Instructions: Take 75 mcg on Tuesdays and , take 50 mcg the rest of the days levothyroxine 50 mcg capsule 50 mcg PO .COMPLEX Qty: 90 3RF Rx Instructions: Take Wed, Wed, Wed, Wed, Wed and take 75 mcg and potassium chloride 20 mEq tablet extended release 40 meq PO BID atorvastatin 20 mg tablet 20 mg PO QPM Qty: 90 3RF docusate sodium [Colace] 100 mg capsule 100 mg PO DAILY PRN cyanocobalamin (vitamin B-12) [Vitamin B-12] 1,000 mcg Tablet 1,000 mcg PO DAILY bumetanide 1 mg tablet 2 mg PO DAILY Discharge Instructions Instructions: Preventing falls in adults Additional Instructions: You were seen in the emergency department for evaluation of weakness, falls. In our department you had a full physical examination performed, had laboratory studies that were reassuring, and had a CT scan of your brain that did not show any signs of stroke, bleeding, or other abnormalities. You worked with our physical therapist and we will be putting in an order for home PT so that you can continue to work with them and get stronger. I need you to follow-up with your primary care provider for reassessment over the next few days to ensure that you are doing well, and you can always return to the emergency department, especially if you have a sudden or severe headache, weakness, numbness, or difficulty moving 1 part of your body, changes in vision, fall, or any other symptoms that cause you concern. Thank you for allowing us to be part of your care. HPI General Mode of arrival: ambulatory . Date/Time Provider Initiated Documentation: 03/22/24 12:44 . Limitations to Documentation: no limitations . Information obtained by: patient, family and old records reviewed . HPI Narrative: HPI: This is a 78-year-old female patient, with a past medical history notable for intracranial aneurysm, dementia, and gait instability at baseline. She is presenting with her family member with a concern for leaning and falling to the left, increasing weakness. The patient reports that she has had numerous episodes where she felt like she was unsteady over the last several weeks. Her has noted generalized weakness, states that she has been evaluated for the symptoms and they noted an aneurysm as well as diagnosed her with dementia, which is a new diagnosis for this family. On Wednesday the thought that she was significantly worsened, and last night he noticed that she went to bed very quickly at 10 PM, and seemed more tired than typical. The patient reports that she is intermittently experiencing some numbness in her left side of her body, has not had specific weakness. She has some difficulty with memory and word finding that has been present for several days to weeks. She reports that she has not had any recent injuries, head strikes, and has been eating and drinking normally. No recent fevers or illnesses, taking all medications as prescribed. Exam: Gen: Awake and alert, in no apparent distress HEENT: Non-icteric sclera, pupils equal and reactive at 3 mm bilaterally, EOMs are full and without gaze palsy. The patient reports no visual acuity changes but states that sometimes her left eye closes Neck: Supple, no tenderness palpation over the C-spine or paraspinal muscles Lungs: No apparent respiratory distress, normal respiratory effort. Lung sounds clear and equal CV: Appears well perfused, strong distal pulses Abdomen: Non-distended, soft, nontender MSK: Moves 4 extremities without apparent limitation in ROM Skin: Visualized skin without rashes, cyanosis. Neuro: Cranial nerves II through XII intact and symmetrical at the time of this provider's examination. She has 5 out of 5 strength x 4 extremities, no sensory deficits. MDM: In brief, this is a 78-year-old female patient presenting for evaluation of weakness, falls, and sensory changes. The patient's symptoms have been present for greater than 24 hours, and she does not meet criteria for a stroke activation. My differential includes but is not limited to stroke, intracranial hemorrhage, metabolic and electrolyte derangement, anemia, dehydration, ACS, arrhythmia. The patient has not had reported seizure activity, nor fevers or meningismus. I also considered sequelae of her newly diagnosed dementia/Alzheim er's, as well as worsening of her baseline gait disturbance. We will obtain laboratory studies to include CBC, CMP, magnesium, INR, and troponin. I will obtain a CTA of the head and neck to better characterize any abnormalities which might account for the patient's symptoms. ED Course: I independently interpreted the laboratory studies, which show no significant leukocytosis, anemia, or thrombocytopenia. The chemistry panel is without evidence of electrolyte abnormality, kidney dysfunction, or liver injury, other than a mild elevation in her bilirubin to 1.6 and an AST of 45. Troponin is negative. INR 1.1. CTA was independently reviewed by myself and I discussed the findings with the radiologist. There is no evidence of acute infarct, intracranial hemorrhage, the aneurysm is reported as fusiform, and there is no critical stenosis of the vessels. Given the duration of symptoms I would expect evidence of infarct to have developed if this was the acute cause of her gait instability and falls. Additionally, the patient at this time has a reassuring neuro examination, and has a documented history of all of the complaints that she brought up today. I do not see an indication for emergent MRI at this time. The patient work with physical therapy, she did ambulate well with a walker and is appropriate for home PT. This referral was placed for home health with home PT, and the patient understands the need to continue working with her outpatient providers. At this time, the patient has had a full medical evaluation and is safe for discharge to home. They are hemodynamically stable, ambulatory, and tolerating PO. They are understanding of the follow-up plan and return precautions. They left our facility without incident. Sharyn Mathews MD Related Data Home Medications ?Medication ?Instructions ?Recorded ?Confirmed atorvastatin 20 mg tablet 20 mg PO QPM #90 tabs 04/04/18 03/22/24 levalbuterol tartrate 45 1 puff inhalation Q6H PRN 11/30/18 03/22/24 mcg/actuation aerosol inhaler (Xopenex HFA) cyanocobalamin (vitamin B-12) 1,000 mcg PO DAILY 02/02/19 03/22/24 1,000 mcg tablet (Vitamin B-12) aspirin 81 mg tablet,delayed 81 mg PO DAILY 11/14/19 03/22/24 release cholecalciferol (vitamin D3) 50 50 mcg PO DAILY 11/12/20 03/22/24 mcg (2,000 unit) capsule isosorbide mononitrate 60 mg 60 mg PO DAILY 11/12/20 03/22/24 tablet,extended release 24 hr fluticasone propionate 50 1 inh inhalation BID PRN 12/04/21 03/22/24 mcg/actuation blister powder for inhalation (Flovent Diskus) levothyroxine 50 mcg capsule 50 mcg PO .COMPLEX #90 caps 04/20/22 03/22/24 levothyroxine 75 mcg tablet See Rx Instructions PO DAILY #25 04/20/22 03/22/24 tab-caps bumetanide 1 mg tablet 2 mg PO DAILY 05/25/22 03/22/24 docusate sodium 100 mg capsule 100 mg PO DAILY PRN 05/25/22 03/22/24 (Colace) potassium chloride 20 mEq 40 meq PO BID 09/30/23 03/22/24 tablet,extended release citalopram 10 mg tablet 10 mg PO DAILY #30 tabs 01/04/24 03/22/24 levetiracetam 500 mg tablet 500 mg PO BID #180 tabs 01/04/24 03/22/24 Previous Rx's ?Medication ?Instructions ?Recorded atorvastatin 20 mg tablet 20 mg PO QPM #90 tabs 04/04/18 levothyroxine 50 mcg capsule 50 mcg PO .COMPLEX #90 caps 04/20/22 levothyroxine 75 mcg tablet See Rx Instructions PO DAILY #25 04/20/22 tab-caps citalopram 10 mg tablet 10 mg PO DAILY #30 tabs 01/04/24 levetiracetam 500 mg tablet 500 mg PO BID #180 tabs 01/04/24 Allergies Allergy/AdvReac Type Severity Reaction Status Date / Time alendronate sodium (From AdvReac Mild Nausea Unverified 03/22/24 12:38 Fosamax) torsemide AdvReac Other (See Verified 03/22/24 12:38 Comment) General Stated Complaint: CVA/TIA OZZY: 3 Course Vital Signs Vital signs: Vital Signs Temperature 36.9 C 03/22/24 12:31 Pulse 78 03/22/24 12:31 Respiratory Rate 20 03/22/24 12:31 Blood Pressure 126/82 03/22/24 12:31 Pulse Oximetry 94 03/22/24 12:31 Temperature 36.9 C 03/22/24 12:31 Pulse 78 03/22/24 12:31 Respiratory Rate 20 03/22/24 12:31 Respiratory Effort Normal, Non-Labored 03/22/24 13:01 Blood Pressure 126/82 03/22/24 12:31 Blood Pressure Position Sitting 03/22/24 12:31 Pulse Oximetry 94 03/22/24 12:31 Oxygen Delivery Method Room Air 03/22/24 12:31 Oxygen Flow Rate 0 03/22/24 12:31 Lab/Test Results Lab/Test Results: Laboratory Tests Range/Units 03/22/24 12:55 WBC (4.4-10.8) 10^3/uL 6.53 RBC (3.93-5.22) 10^6/uL 4.30 Hgb (11.2-15.7) g/dL 12.7 Hct (36.0-46.0) % 40.3 MCV (80-95) fL 94 MCH (27.0-33.0) pg 29.5 MCHC (32.0-36.0) % 31.5 L RDW (11.7-14.6) % 15.9 H Plt Count (130-400) 10^3/uL MPV (8.0-11.0) fL Immature Gran % % 0.2 Neutrophils % % 51.5 Lymphocytes % % 34.8 Monocytes % % 9.5 Eosinophils % % 3.1 Basophils % % 0.9 Nucleated RBC % (0.0-0.3) % 0.0 Absolute Neutrophils (1.2-6.7) 10^3/uL 3.37 Absolute Lymphocytes (1.2-3.4) 10^3/uL 2.27 Absolute Monocytes (0.1-0.8) 10^3/uL 0.62 Absolute Eosinophils (0.0-0.7) 10^3/uL 0.20 Absolute Basophils (0.0-0.2) 10^3/uL 0.06 PT (9.1-11.1) sec 10.6 INR (0.9-1.1) 1.1 Sodium (136-145) mmol/L 143 Potassium (3.5-5.1) mmol/L 4.1 Chloride (98-107) mmol/L 107 Carbon Dioxide (21.0-32.0) mmol/L 28.8 Anion Gap (3-11) mmol/L 7.2 BUN (7-18) mg/dL 13 Creatinine (0.55-1.02) mg/dL 0.9 Est GFR (CKD-EPI 2020) (mL/min/1.73m2) 65.44 Glucose (74-106) mg/dL 102 Calcium (8.5-10.1) mg/dL 9.4 Magnesium (1.8-2.4) mg/dL 1.9 Total Bilirubin (0.2-1.0) mg/dL 1.69 H AST (15-37) U/L 45 H ALT (14-59) U/L 23 Alkaline Phosphatase (46-116) U/L 119 H Troponin I (<or=51) ng/L 6 Total Protein (6.4-8.2) g/dL 7.6 Albumin (3.4-5.0) g/dL 3.4 Medical Decision Making Quality:SDOH Health Related Social Needs: No Data to Display PFSH All Active Problems (Updated 03/22/24 @ 16:12 by Sharyn Mathews MD) Weakness (Acute) Mood changes (Acute) Imbalance (Acute) Gait abnormality (Acute) Speech disorder (Acute) Post-ictal state (Acute) Seizure (Acute) Acute hypokalemia (Acute) AMS (altered mental status) (Acute) Essential tremor (Acute) Spells of decreased attentiveness (Acute) Lethargy (Acute) Peripheral neuropathy (Acute) Falls (Acute) Mild cognitive impairment (Chronic) Left-sided neglect (Acute) 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 Migraine with vertigo (Acute 08/06/14) Medical History Cataract Intermittent asthma Constipation Vitamin D deficiency Hypernatremia Adjustment disorder with mixed anxiety and depressed mood Loss of balance Mammogram abnormal Preventative health care Mitral valve prolapse B12 deficiency Anemia, iron deficiency Atopic dermatitis Fatigue Heart failure Osteoporosis Decreased hearing Dyspnea on exertion Cough Restrictive lung disease Frequent falls Memory impairment Anxiety Carpal tunnel syndrome Pre-diabetes COPD (chronic obstructive pulmonary disease) CAD (coronary artery disease) Chest pain Osteopenia Hypothyroid Vestibular migraine Benign positional vertigo Surgical History Hx of cataract surgery History of cardiac catheterization without stenting History of colonoscopy Ligation of fallopian tube Tonsillectomy and adenoidectomy Family History Other Cancer Heart disease Social History Smoking/Tobacco Use Status: Never Smoking risk assessment performed?: Yes Alcohol Intake: former Drug use: Never Substance use type: does not use Household members: spouse Housing: house Number of Children: 2 Pets and animals: Yes Pets and animals: dog(s) Current gender identity: female What is your relationship status?: Panel score (0-1 are the most socially isolated patients): 1 Seatbelt use: always Do you feel safe at home: Yes Do you feel safe in your relationship?: Yes Additional Social history: Lives with Dio in [facility]. Retired teacher.
[2024-03-22 14:46] LABS: Troponin I 4 ng/L (<or=51)
--- NOTE | 2024-03-22 15:29 | IN_ITS ---
PT Notes Visit Reasons: from Neuro/ aneurysm Physical Therapy Emergency Department initial Evaluation Date: 03/22/2024 Referring Doctor: Sharyn Mathews MD PT Orders: PT CONSULT: Safety Consult for D/C Precautions: Fall. Standard. Activity as tolerated. Patient Profile/Admitting Diagnosis: Anika is a 78-year-old female with a past medical history significant for intracranial aneurysm, dementia, and gait instability. Referral for PT evaluation was sent to assess safety and determine fall risk during mobility performance. 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 Migraine with vertigo (Acute 08/06/14) Medical History Cataract Intermittent asthma Constipation Vitamin D deficiency Hypernatremia Adjustment disorder with mixed anxiety and depressed mood Loss of balance Mammogram abnormal Preventative health care Mitral valve prolapse B12 deficiency Anemia, iron deficiency Atopic dermatitis Fatigue Heart failure Osteoporosis Decreased hearing Dyspnea on exertion Cough Restrictive lung disease Frequent falls Memory impairment Anxiety Carpal tunnel syndrome Pre-diabetes COPD (chronic obstructive pulmonary disease) CAD (coronary artery disease) Chest pain Osteopenia Hypothyroid Vestibular migraine Benign positional vertigo Surgical History Hx of cataract surgery History of cardiac catheterization without stentingHistory of colonoscopy Ligation of fallopian tube Tonsillectomy and adenoidectomy Social History/Home Situation: Occasionally uses FWW indoors. Lives with in a private home with 4 steps to enter. Equipment Owned/DME: FWW Subjective: Patient feels that walking has gotten more of a challenge for her than usual this past several days. states that he is always with her except for when he needs to go to the grocery store and be away for 45 minutes the longest. added that he feels okay with going home and guiding her with mobility performance. Happy that home health PT and OT will be going to their house for strengthening, balance retraining, and mobility training. Objective: , General Observation: Patient resting in bed. Dio present in room throughout session. Mental Status: Alert and oriented as to person, place, time, and purpose. Able to pay attention, focus, and respond appropriately. Pain: None reported Vital Signs: Closely monitored by [facility] staff ROM: Right Upper Extremity: Shoulder Flexion WFL. Shoulder abduction WFL. Elbow flexion WFL. Wrist flexion WFL. Functional opening and closing of hand WFL. Left Upper Extremity: Shoulder Flexion WFL. Shoulder abduction WFL. Elbow flexion WFL. Wrist flexion WFL. Functional opening and closing of hand WFL. Right Lower Extremity: Hip flexion WFL. Hip abduction WFL. Knee flexion WFL. Ankle dorsiflexion WFL. Ankle plantarflexion WFL. Left Lower Extremity: Hip flexion WFL. Hip abduction WFL. Knee flexion WFL. Ankle dorsiflexion WFL. Ankle plantarflexion WFL. Strength: Right Upper Extremity: Shoulder flexors 4/5. Shoulder abductors 4/5. Elbow flexors 4/5. Elbow extensors 4/5. Trolley Wire Installer strong. Left Upper Extremity: Shoulder flexors 4/5. Shoulder abductors 4/5. Elbow flexors 4/5. Elbow extensors 4/5. Trolley Wire Installer strong. Right Lower Extremity: Hip flexors 4-/5. Hip abductors 4-/5. Knee flexors 4-/5. Knee extensors 4-/5. Ankle dorsiflexors 4-/5. Ankle plantarflexors 4-/5. Left Lower Extremity: Hip flexors 4-/5. Hip abductors 4-/5. Knee flexors 4-/5. Knee extensors 4-/5. Ankle dorsiflexors 4-/5. Ankle plantarflexors 4-/5. Bed Mobility/Transfers: Moderate cueing provided for use of B hands as needed for support, movement sequence, AD management, and posture to reduce fall risk and minimize pain report Supine to sit contact guard assist while pulling on bed siderail Sit to stand stand by assist Stand to sit contact guard assist using FWW Gait: Instructed patient with level surface ambulation of 200 feet using front wheeled walker with moderate verbal cueing and teaching provided for both and patient for safe forward limb advancement to avoid scissorring of R foot over the L. Coordination of limbs and motor execution impaired. Performed better when movement was slowed. Balance: Static Sitting: Normal Dynamic Sitting: Fair Static Standing: Fair Dynamic Standing: Fair Special Tests: Mobility Limitations Standardized Measure [facility] AM-PAC 6 clicks Basic Mobility Inpatient Short Form: Raw Score: 21 CMS Score: 29% deficit Informed Consent/Education: Patient was instructed in purpose of PT consult and plan of care. Agreeable to proceed with established PT POC to achieve personal goals. Assessment: Strength symmetric in B UE/LE. Patient requires contact guard assist only and occasional AD maneuvering assistance for all mobilty ADL performance. Dio is confident about being able to provide the very little assistance his needs at home. Patient and both understand that taking time to take forward steps to ensure that each foot lands on the side and not across the other foot to ensure safety. They are both agreeable with working with HH on progressive strengthening, balance retraining, and mobility progression as tolerated. amenable to putting neon tape on front edge of FWW to optimize safer environmental/obstacle negotiation. Patient presents with clinical signs and symptoms consistent with c urrent/admitting diagnoses that have resulted to mobility limitations, gait instability, generalized weakness, and overall ADL decline as demonstrated by the following impairment level findings: 1. Decreased strength to B UE/LE major muscle groups 2. Impaired sitting/standing balance 3. Impaired activity tolerance Impairments are contributing to the following functional limitations: 1. Difficulty with ambulation without assistive device 2. Increased completion time for mobility ADL performance 3. Increased risk for falls Patient is assessed as a 24943 moderate complexity based on the following: History: 78-year-old female with past medical history as indicated above Examination: Demonstrable impairment in strength, balance, and mobility level with underlying impairments and functional limitations as exhibited above as well as deficit score of 29% utilizing the [facility] Mobility Inpatient Short Form Presentation: Stable Decision Makin moderate complexity Goals: N/A. PT evaluation only Plan of Care/Treatment Plan: Continue with home health physical therapy intervention for pain management as needed, strengthening, bed mobility, transfers, gait, stairs, balance training, and use of assistive device. DISCHARGE RECOMMENDATIONS: 20 4 PM on Home with no services [X] Home with services. Patient will benefit from home health PT services in order to progress mobility level using least restrictive assistive ambulatory device, assess home safety, identify additional equipment needs, and establish a functional maintenance program that will increase ability of patient to remain at home. [] Home with outpatient PT [] [] SNF for continued rehabilitation [] [] [facility] [] [] SNF versus LTC based on ability to participate and progress [] TREATMENT CODE/TIME: 08201 x 20 minutes for 1 unit, 64988 x 15 minutes for 1 unit (15: 29?16: 04). Thank you for the opportunity to participate in the care of this patient. Loida Murillo PT, DPT, CLT [facility] [place], [place]
== END 2024-03-22 16:30 | disposition home or self-care (01) ==
PROVIDERS: Emergency Provider Emergency Medicine; PCP Nurse Practitioner Family
DX: R53.1 Weakness (principal); G31.84 Mild cognitive impairment of uncertain or unknown etiology; R26.9 Unspecified abnormalities of gait and mobility; J44.9 Chronic obstructive pulmonary disease, unspecified; I25.10 Atherosclerotic heart disease of native coronary artery without angina pectoris; F03.90 Unspecified dementia, unspecified severity, without behavioral disturbance, psychotic disturbance, mood disturbance, and anxiety; Z86.73 Personal history of transient ischemic attack (TIA), and cerebral infarction without residual deficits
CPT/HCPCS: 36415; 70496; 70498; 80053; 82962; 93005; 97162; 97530; 99285; 83735; 84484; 85025; 85610; 93010; J3490

== ENCOUNTER → 2024-04-13 14:08 | Outpatient (BNVA) | payer MEDICARE, BC, MEDICAID, SELFPAY | PROVIDERS: PCP Nurse Practitioner Family; Visit Provider Psychiatry & Neurology Neurology | DX: G20.C Parkinsonism, unspecified (principal); R74.8 Abnormal levels of other serum enzymes | CPT/HCPCS: 99215; G2212 ==

== ENCOUNTER → 2024-06-19 12:20 | Outpatient (BNVA) | payer MEDICARE, BC, MEDICAID, SELFPAY | PROVIDERS: PCP Nurse Practitioner Family; Referring Provider Nurse Practitioner Family; Visit Provider Psychiatry & Neurology Neurology | DX: G20.C Parkinsonism, unspecified (principal); G31.84 Mild cognitive impairment of uncertain or unknown etiology; R26.89 Other abnormalities of gait and mobility; R45.86 Emotional lability; R74.8 Abnormal levels of other serum enzymes | CPT/HCPCS: 99214 ==

== ENCOUNTER 2024-10-10 10:55 | Outpatient (CLI) | payer MEDICARE, BC, SELFPAY ==
--- NOTE | 2024-10-10 11:00 | RT.EKG_ITS ---
APPROVED REPORT Exam: Resting ECG Reason for Exam: CAD Patient Location: O HR:73 bpm ECG Measurements Heart Rate 73 AXIS MA 193 P -10 QRSd 149 QRS 61 QT 432 T -27 QTc 476 Conclusion Sinus rhythm...normal P axis, V-rate 50- 99 Right bundle branch block...QRSd>120, terminal axis(90,270) Baseline wander in lead(s) II
== END 2024-10-10 10:56 | disposition home or self-care (01) ==
LOC: DI.CARD 11:10
PROVIDERS: PCP Nurse Practitioner Family; Referring Provider Nurse Practitioner Family; Visit Provider Internal Medicine Cardiovascular Disease
DX: I25.10 Atherosclerotic heart disease of native coronary artery without angina pectoris (principal); I45.10 Unspecified right bundle-branch block
CPT/HCPCS: 93010

== ENCOUNTER → 2024-10-10 10:55 | Outpatient (BNVA) | payer MEDICARE, BC, SELFPAY | PROVIDERS: PCP Nurse Practitioner Family; Referring Provider Nurse Practitioner Family; Visit Provider Internal Medicine Cardiovascular Disease | DX: I25.10 Atherosclerotic heart disease of native coronary artery without angina pectoris (principal); I50.30 Unspecified diastolic (congestive) heart failure | CPT/HCPCS: 99214; 93005 ==

== ENCOUNTER 2024-10-17 14:49 | Outpatient (REF) | payer MEDICARE, BC, SELFPAY ==
[2024-10-17 15:48] LABS: Abs Immature Grans 0.01 10^3/uL (0.0-0.06); Absolute Basophil Count 0.05 10^3/uL (0.0-0.2); Absolute Eosinophil Count 0.24 10^3/uL (0.0-0.7); Absolute Lymphocyte Count 2.12 10^3/uL (1.2-3.4); Absolute Monocyte Count 0.62 10^3/uL (0.1-0.8); Absolute Neutrophil Count 2.62 10^3/uL (1.2-6.7); Basophils % 0.9 %; Eosinophils % 4.2 %; HCT 38.6 % (36.0-46.0); HGB 12.1 g/dL (11.2-15.7); Immature Grans % 0.2 %; Lymphocytes % 37.5 %; MCH 29.6 pg (27.0-33.0); MCHC 31.3 % (32.0-36.0); MCV 94 fL (80-95); MPV 9.4 fL (8.0-11.0); Neutrophils % 46.2 %; Platelet Count 256 10^3/uL (130-400); RBC 4.09 10^6/uL (3.93-5.22); RDW 16.4 % (11.7-14.6); RDW-SD 57.2 fL; WBC 5.66 10^3/uL (4.4-10.8)
[2024-10-17 16:13] LABS: Hemoglobin A1C 5.9 % (<5.7); Iron 89 ug/dL (50-170); Total Iron Binding Capacity 363 ug/dL (250-450); Transferrin Sat 25 % (15-50)
[2024-10-17 16:18] LABS: ALT 27 U/L (14-59); AST 30 U/L (15-37); Albumin 3.2 g/dL (3.4-5.0); Alkaline Phosphatase 115 U/L (46-116); BUN 10 mg/dL (7-18); Bilirubin, Total 1.6 mg/dL (0.2-1.0); Calcium 9.3 mg/dL (8.5-10.1); Chloride 106 mmol/L (98-107); Estimated GFR 57.31 (mL/min/1.73m2); Ferritin 15 ng/mL (8-252); Glucose 112 mg/dL (74-106); Magnesium 1.9 mg/dL (1.8-2.4); Potassium 3.2 mmol/L (3.5-5.1); Sodium 144 mmol/L (136-145); Total Protein 6.7 g/dL (6.4-8.2)
[2024-10-17 16:38] LABS: FREE T4 0.91 ng/dL (0.76-1.46)
== END 2024-10-17 14:50 | disposition home or self-care (01) ==
LOC: NCHCN 14:49
PROVIDERS: PCP Nurse Practitioner Family; Visit Provider Nurse Practitioner Family
DX: R73.03 Prediabetes (principal); E03.9 Hypothyroidism, unspecified; E83.42 Hypomagnesemia; I25.10 Atherosclerotic heart disease of native coronary artery without angina pectoris
CPT/HCPCS: 80053; 82728; 83036; 83540; 83550; 83735; 84439; 84443; 85025

== ENCOUNTER → 2024-10-23 13:00 | Outpatient (BNVA) | payer MEDICARE, BC, SELFPAY | PROVIDERS: PCP Nurse Practitioner Family; Visit Provider Psychiatry & Neurology Neurology | DX: G31.84 Mild cognitive impairment of uncertain or unknown etiology (principal); R26.89 Other abnormalities of gait and mobility; R45.86 Emotional lability; R74.8 Abnormal levels of other serum enzymes; G20.C Parkinsonism, unspecified; J44.9 Chronic obstructive pulmonary disease, unspecified | CPT/HCPCS: 99214 ==

== ENCOUNTER 2024-12-06 16:22 | Outpatient (REF) | payer MEDICARE, BC, SELFPAY ==
[2024-12-06 20:52] LABS: TSH (W/Ref FT4) 0.58 uIU/mL (0.36-3.74)
== END 2024-12-06 16:23 | disposition home or self-care (01) ==
LOC: NCHCN 16:22
PROVIDERS: PCP Nurse Practitioner Family; Visit Provider Nurse Practitioner Family
DX: E03.9 Hypothyroidism, unspecified (principal)
CPT/HCPCS: 84443

== ENCOUNTER → 2024-12-27 12:14 | Outpatient (BNVA) | payer MEDICARE, BC, SELFPAY | PROVIDERS: PCP Nurse Practitioner Family; Referring Provider Nurse Practitioner Family; Visit Provider Psychiatry & Neurology Neurology | DX: G31.84 Mild cognitive impairment of uncertain or unknown etiology (principal); R26.89 Other abnormalities of gait and mobility; R45.86 Emotional lability; R74.8 Abnormal levels of other serum enzymes; G20.C Parkinsonism, unspecified; J44.9 Chronic obstructive pulmonary disease, unspecified | CPT/HCPCS: 99214 ==

== ENCOUNTER 2025-01-10 02:49 | Outpatient (CLI) | payer MEDICARE, BC, SELFPAY ==
--- NOTE | 2025-01-10 | DI.RAD_ITS ---
Exam(s) XR ELBOW RT COMPLETE EXAM: XR ELBOW RT COMPLETE CLINICAL HISTORY: PAIN RT ELBOW M25.521 HX FALL Z91.81. TECHNIQUE: 2D digital imaging was performed. Three views. COMPARISON: No exams were available for comparison FINDINGS: BONES: No acute fracture is present. No bony destructive lesion is seen. JOINTS: The elbow is normally aligned. There is a question of a small joint effusion. SOFT TISSUE: Normal. IMPRESSION: There is a small joint effusion. No fracture is visible. DATA REPOSITORY: RADIATION DOSE DELIVERED:
== END 2025-01-10 03:09 ==
PROVIDERS: PCP Nurse Practitioner Family; Visit Provider Nurse Practitioner Family
DX: M25.521 Pain in right elbow (principal); Z91.81 History of falling
CPT/HCPCS: 73080

== ENCOUNTER 2025-02-06 14:28 | Outpatient (CLI) | payer MEDICARE, BC, SELFPAY ==
--- NOTE | 2025-02-06 13:57 | DI.RAD_ITS ---
Exam(s) XR ELBOW RT LIMITED EXAM: XR ELBOW RT LIMITED CLINICAL HISTORY: fall/pain. TECHNIQUE: 2D digital imaging was performed. COMPARISON: No exams were available for comparison FINDINGS: Two views-AP and lateral No evidence of fracture nor joint effusion. There is subcutaneous soft tissue edema over the posterior aspect of the elbow and proximal forearm. There is no subjacent fracture. No gas in soft tissues and no radiopaque foreign bodies. Radial head and neck appear unremarkable. Epicondyles unremarkable. IMPRESSION: There is subcutaneous soft tissue edema on the dorsal aspect of the elbow and proximal forearm but no fractures. No obvious joint effusion. DATA REPOSITORY: RADIATION DOSE DELIVERED:
== END 2025-02-06 14:29 | disposition home or self-care (01) ==
LOC: DIORS 14:29
PROVIDERS: PCP Nurse Practitioner Family; Referring Provider Nurse Practitioner Family; Visit Provider Student in an Organized Health Care Education/Training Program
DX: M25.521 Pain in right elbow (principal); S50.01XA Contusion of right elbow, initial encounter; W07.XXXA Fall from chair, initial encounter
CPT/HCPCS: 99213; 73070